=== PATIENT | female | born 1930 | race Caucasian/White ===

== ENCOUNTER 2019-05-31 07:09 | Inpatient (IN) ==
[2019-05-31] MEDS ORDERED: FAMOTIDINE 20MG IV PUSH 20 MG/5 ML SYR IV STA (07:26)
[2019-05-31] MEDS ORDERED: ONDANSETRON INJ 2 MG/ML 2 ML VIAL IV STA (07:26)
[2019-05-31] MEDS ORDERED: SODIUM CHLORIDE 0.9% 500 ML IV SCH (07:30)
--- NOTE | 2019-05-31 07:36 | Emergency Department Note ---
Entered by Christie Doll acting as a scribe for History of Present Illness General Chief complaint: GI Bleed Time Seen by Provider: 05/31/19 07:21 Source: patient Mode of arrival: EMS Limitations: no limitations History of Present Illness Onset (ago): week(s) 1 Location: abdomen Radiation: non-radiation Pain Consistency: + constant Relieved By: + none Exacerbated By: + none Associated symptoms: + weakness and + other (+diarrhea, +hematochezia, +abdominal pain) Treatments prior to arrival: none The patient is an 88 year old female who presents to the ED with complaints of a GI bleed. She was brought to the ED via EMS. She is currently residing at [facility] for back pain rehab after being seen at [facility] last week. She has experienced abdominal pain and diarrhea for the past 1 week. She describes her stool as looking like "black tar". She has been increasingly weak. The patient does take daily BP medication but reports her doctors recently took her off it because her pressure had been dropping. Home Medications Home Medications Medication Instructions Recorded Confirmed Type Lactobacillus acidoph-L.bulgar 1 tab PO TIDM 05/31/19 05/31/19 History [Floranex] amlodipine 10 mg PO QAM 05/31/19 05/31/19 History aspirin 81 mg PO QAM 05/31/19 05/31/19 History atorvastatin 10 mg PO QAM 05/31/19 05/31/19 History calcium carbonate-vitamin D3 1 tab PO BID 05/31/19 05/31/19 History [Calcium 500 + D] cholecalciferol (vitamin D3) 1,000 unit PO QAM 05/31/19 05/31/19 History [Vitamin D3] docusate sodium [Colace] 100 mg PO BID 05/31/19 05/31/19 History gabapentin 100 mg PO TID 05/31/19 05/31/19 History lidocaine [Lidoderm] 1 patch TOPICAL HS 05/31/19 05/31/19 History metoprolol succinate 100 mg PO QAM 05/31/19 05/31/19 History multivitamin 1 tab PO QAM 05/31/19 05/31/19 History ondansetron 4 mg PO Q6H PRN 05/31/19 05/31/19 History pantoprazole 20 mg PO QAM 05/31/19 05/31/19 History prednisone 40 mg PO QAM 05/31/19 05/31/19 History tramadol 50 mg PO Q4H PRN 05/31/19 05/31/19 History Allergies Allergy/AdvReac Type Severity Reaction Status Date / Time erythromycin base Allergy Unknown Unknown Unverified 05/31/19 07:46 Penicillins Allergy Unknown Unknown Unverified 05/31/19 07:46 Past Med/Surg History Medical History HTN (hypertension) GI bleed Back pain Social History Feels Safe at Home: Yes Smoking Status: Never smoker Review of Systems See HPI for pertinent positives & negatives. and A total of 10 systems reviewed and were otherwise negative Physical Exam Vital Signs Vital Signs - 24 hr 05/31/19 07:21 05/31/19 08:29 Temperature 36.9 C Temperature Source Oral Sepsis Recent Fever Within 48 Hours No Sepsis New/Unexplained Change in Mental Status No Sepsis Action Taken by Nursing No Action Required Pulse Rate 120 H Pulse Rate [Apical] 106 H Respiratory Rate 20 16 Blood Pressure 95/77 L Blood Pressure [Right Arm] 95/70 L Blood Pressure Mean 83 Blood Pressure Mean [Right Arm] 78 Pulse Oximetry 99 99 Oxygen Delivery Method Room Air Room Air CONSTITUTIONAL/VITAL SIGNS: Reviewed / noted above. GENERAL: Non-toxic in appearance. INTEGUMENTARY: Warm and dry. Skin is pale. HEAD: Normocephalic. EYES: without scleral icterus or trauma. ENT/OROPHARYNX: clear and moist. LYMPHADENOPATHY/NECK: Is supple without lymphadenopathy or meningismus. RESPIRATORY: Lungs clear and equal. CARDIOVASCULAR: Regular rate and rhythm. GI/ABDOMEN: Soft and nontender. No organomegaly or pulsatile mass. No rebound or guarding. Normal bowel sounds. EXTREMITIES: Warm and well perfused. BACK: No CVA tenderness. NEUROLOGICAL: Intact without focal deficits. PSYCHIATRIC: normal affect. MUSCULOSKELETAL: Normally developed with good muscle tone. Course 0723: The patient was evaluated in room A12 and a complete history and physical were performed. 0840: [facility] The patient will be further evaluated. Consultations Consultation #1: I discussed the patients case with CAL [facility]. The patient will be further evaluated. Time: 08:40 Administered Medications Discontinued Medications Fentanyl Citrate (Fentanyl Citrate) 25 mcg IV NOW ONE Stop: 05/31/19 08:22 Last Admin: 05/31/19 08:28 Dose: 25 mcg Documented by: [id number] Famotidine (Pepcid 20mg Iv Push) 20 mg in 5 mls @ 2.5 mls/min IV NOW STA Stop: 05/31/19 07:27 Last Admin: 05/31/19 08:01 Dose: 2.5 mls/min Documented by: [id number] Sodium Chloride (Nss) 500 mls @ 999 mls/hr IV .Q31M JOSEFINA Stop: 05/31/19 08:00 Last Infusion: 05/31/19 08:38 Dose: 0 mls/hr Documented by: [id number] Admin: 05/31/19 08:01 Dose: 999 mls/hr Documented by: [id number] Ondansetron HCl (Zofran) 4 mg IV ONE STA Stop: 05/31/19 07:27 Last Admin: 05/31/19 08:01 Dose: 4 mg Documented by: [id number] Medical Decision Making Differential Diagnosis Differential diagnosis includes etiologies such as diverticulosis, AVM, coagulopathy, colitis, inflammatory bowel disease, malignancy, Mary-Siddiqui tear, esophagitis, peptic ulcer disease, variceal bleed, gastritis, epistaxis, fissure, hemorrhoids, as well as others were entertained. Medical Records Attestation: I reviewed the patient's medical records. Home Medications Current Medication List: was personally reviewed by me Laboratory Data Attestation: I reviewed the patient's lab results. Result diagrams: 05/31/19 08:00 05/31/19 08:00 Lab Results 05/31/19 05/31/19 05/31/19 Range/Units 08:00 08:00 08:00 WBC 22.77 H (4.8-10.8) K/uL RBC 2.32 L (4.2-5.4) M/uL Hgb 7.5 L (12.0-16.0) g/dL Hct 21.7 L (37-47) % MCV 93.5 (80-100) fL MCH 32.3 (25-34) pg MCHC 34.6 (32-36) g/dL RDW Std Deviation 45.1 (36.4-46.3) fL RDW Coeff of Allison 13.5 (11.5-14.5) % Plt Count 184 (130-400) K/uL MPV 9.3 (7.4-10.4) fL Immature Gran % (Auto) 1.4 % Neut % (Auto) 78.5 % Lymph % (Auto) 13.6 % Houghton % (Auto) 6.5 % Eos % (Auto) 0.0 % Baso % (Auto) 0.0 % Immature Gran # (Auto) 0.33 H (0.00-0.02) K/uL Neut # (Auto) 17.84 H (1.4-6.5) K/uL Lymph # (Auto) 3.09 (1.2-3.4) K/uL Houghton # (Auto) 1.49 H (0.11-0.59) K/uL Eos # (Auto) 0.01 (0-0.5) K/uL Baso # (Auto) 0.01 (0-0.2) K/uL Absolute Nucleated RBC 0.08 H (0-0) K/uL Nucleated RBC % (auto) 0.3 % Sodium 141 (136-145) mmol/L Potassium 4.7 (3.5-5.1) mmol/L Chloride 108 H (98-107) mmol/L Carbon Dioxide 24 (21-32) mmol/L Anion Gap 9.0 (3-11) BUN 58 H (7-18) mg/dl Creatinine 1.09 (0.6-1.2) mg/dl Est Cr Clr Drug Dosing 30.9 ml/min Est GFR ( Amer) 52.9 Est GFR (Non-Af Amer) 45.6 BUN/Creatinine Ratio 52.9 H (10-20) Glucose 150 H (70-99) mg/dl Calcium 8.1 L (8.5-10.1) mg/dl Total Bilirubin 0.3 (0.2-1) mg/dl AST 14 L (15-37) U/L ALT 30 (12-78) U/L Alkaline Phosphatase 39 L (45-117) U/L Total Protein 5.0 L (6.4-8.2) gm/dl Albumin 2.6 L (3.4-5.0) gm/dl Globulin 2.4 L (2.5-4.0) gm/dl Albumin/Globulin Ratio 1.1 (0.9-2) Crossmatch See Detail 05/31/19 Range/Units 08:04 WBC (4.8-10.8) K/uL RBC (4.2-5.4) M/uL Hgb (12.0-16.0) g/dL Hct (37-47) % MCV (80-100) fL MCH (25-34) pg MCHC (32-36) g/dL RDW Std Deviation (36.4-46.3) fL RDW Coeff of Allison (11.5-14.5) % Plt Count (130-400) K/uL MPV (7.4-10.4) fL Immature Gran % (Auto) % Neut % (Auto) % Lymph % (Auto) % Houghton % (Auto) % Eos % (Auto) % Baso % (Auto) % Immature Gran # (Auto) (0.00-0.02) K/uL Neut # (Auto) (1.4-6.5) K/uL Lymph # (Auto) (1.2-3.4) K/uL Houghton # (Auto) (0.11-0.59) K/uL Eos # (Auto) (0-0.5) K/uL Baso # (Auto) (0-0.2) K/uL Absolute Nucleated RBC (0-0) K/uL Nucleated RBC % (auto) % Sodium (136-145) mmol/L Potassium (3.5-5.1) mmol/L Chloride (98-107) mmol/L Carbon Dioxide (21-32) mmol/L Anion Gap (3-11) BUN (7-18) mg/dl Creatinine (0.6-1.2) mg/dl Est Cr Clr Drug Dosing ml/min Est GFR ( Amer) Est GFR (Non-Af Amer) BUN/Creatinine Ratio (10-20) Glucose (70-99) mg/dl Calcium (8.5-10.1) mg/dl Total Bilirubin (0.2-1) mg/dl AST (15-37) U/L ALT (12-78) U/L Alkaline Phosphatase (45-117) U/L Total Protein (6.4-8.2) gm/dl Albumin (3.4-5.0) gm/dl Globulin (2.5-4.0) gm/dl Albumin/Globulin Ratio (0.9-2) Crossmatch See Detail Imaging Data Radiologist's Impression: Radiology results as stated below per my review and the radiologist's interpretation: SINGLE VIEW CHEST CLINICAL HISTORY: GI bleeding. Generalized weakness. FINDINGS: An AP, portable, upright chest radiograph is obtained. No prior studies are available for comparison at the time of dictation. The ca rdiomediastinal silhouette is unremarkable. There is atherosclerotic calcification with uncoiling of the thoracic aorta. The lungs and pleural spaces are clear. No pneumothorax is seen. The skeletal structures are osteopenic. The bony thorax is grossly intact. Calcific tendinopathy is noted in both shoulders. IMPRESSION: 1. The lungs are clear. 2. There is atherosclerotic calcification with uncoiling of the thoracic aorta. No prior studies are available for comparison and to assess stability. Aneurysm of the descending thoracic aorta is not excluded. CT angiogram of the chest is recommended for further assessment. Electronically signed by: Haja Verdin M.D. 05/31/2019 7:57 AM ECG Data Attestation: I personally reviewed and interpreted this ECG as follows: Indication: weakness Rate (beats per minute): 106 Rhythm: sinus tachycardia Findings: no ST elevation and no ectopy Blood Pressure Blood Pressure Findings: Low blood pressure MDM Narrative This is an 88-year-old female who presents to the ED with a chief complaint of generalized weakness, some abdominal cramps, nausea, diarrhea and black tarry stools. The patient states that she has had black tarry stools and diarrhea for about a week. She has become increasingly weak over the last several days. She states that over the last several days her blood pressure has been dropping and they took her off of her blood pressure medication. The patient reports nausea now. Her stools were black and heme positive here. The patient looks pale on exam. She is tachycardic. Her blood pressure is 95/77. She has no abdominal tenderness on my exam. She does not appear to be in any distress. The patient's hemoglobin is 7.5. White blood cell count was 22. BUN is 58. The patient was treated with IV fluids. She was given IV fentanyl, IV Pepcid as Protonix is on back order and IV blood transfusion was ordered. The patient will be seen by the hospitalist, for further evaluation and care. Impression & Plan GI bleed, Anemia, Diarrhea Critical Care Time Critical Care Time: Yes Total Critical Care Time: 31 I have personally spent 31 minutes of critical care time in the direct imtiaz gement of this patient. This includes bedside care, interpretation of diagnostic studies, and testing, discussion with consultants, patient, and family members, and other required patient management activities. This 31 minutes is in excess of all separately billable procedures. Discharge Plan Visit Data Chief Complaint: GI Bleed ED Provider: Americo Davey Discharge Problem: GI bleed, Anemia, Diarrhea Patient Disposition: Being Evaluated by Hospitalist Forms Stand Alone Forms: My [facility] Prescriptions Prescriptions: No Action multivitamin Tablet 1 tab PO QAM RF: 0 atorvastatin 10 mg tablet 10 mg PO QAM RF: 0 metoprolol succinate 50 mg tablet extended release 24 hr 100 mg PO QAM RF: 0 prednisone 20 mg Tablet 40 mg PO QAM RF: 0 aspirin 81 mg Tablet,Delayed Release (Dr/Ec) 81 mg PO QAM RF: 0 tramadol 50 mg tablet 50 mg PO Q4H PRN (Reason: Pain) RF: 0 pantoprazole 20 mg tablet,delayed release (DR/EC) 20 mg PO QAM RF: 0 amlodipine 10 mg tablet 10 mg PO QAM RF: 0 lidocaine [Lidoderm] 5 % Adhesive Patch,Medicated 1 patch TOPICAL HS RF: 0 docusate sodium [Colace] 100 mg Capsule 100 mg PO BID RF: 0 gabapentin 100 mg capsule 100 mg PO TID RF: 0 ondansetron 4 mg tablet,disintegrating 4 mg PO Q6H PRN (Reason: Nausea And Vomiting) RF: 0 calcium carbonate-vitamin D3 [Calcium 500 + D] 500 mg(1,250mg) -200 unit Tablet 1 tab PO BID RF: 0 cholecalciferol (vitamin D3) [Vitamin D3] 1,000 unit (25 mcg) Tablet 1,000 unit PO QAM RF: 0 Lactobacillus acidoph-L.bulgar [Floranex] 1 million cell Tablet 1 tab PO TIDM RF: 0 Referrals Referrals: Yolanda Zurita D.OMarcus [Primary Care Provider] - The scribe's documentation has been prepared under my direction and personally reviewed by me in its entirety. I confirm that the note above accurately ref lects all work, treatment, procedures, and medical decision making performed by me.
--- NOTE | 2019-05-31 07:58 | XRay Report ---
SINGLE VIEW CHEST CLINICAL HISTORY: GI bleeding. Generalized weakness. FINDINGS: An AP, portable, upright chest radiograph is obtained. No prior studies are available for c omparison at the time of dictation. The cardiomediastinal silhouette is unremarkable. There is athe rosclerotic calcification with uncoiling of the thoracic aorta. The lungs and pleural spaces are rob r. No pneumothorax is seen. The skeletal structures are osteopenic. The bony thorax is grossly intact . Calcific tendinopathy is noted in both shoulders. IMPRESSION: 1. The lungs are clear. 2. There is atherosclerotic calcification with uncoiling of the thoracic aorta. No prior studies are available for comparison and to assess stability. Aneurysm of the descending thoracic aorta is not ex cluded. CT angiogram of the chest is recommended for further assessment. Electronically signed by: Haja Verdin M.D. 05/31/2019 7:57 AM
[2019-05-31 08:17] LABS: Basophils # (auto) 0.01 K/uL (0-0.2); Eosinophils # (auto) 0.01 K/uL (0-0.5); Hematocrit (blood only) 21.7 % (37-47); Hemoglobin 7.5 g/dL (12.0-16.0); Immature Granulocytes # (auto) 0.33 K/uL (0.00-0.02); Immature Granulocytes % (auto) 1.4 %; Lymphocytes # (auto) 3.09 K/uL (1.2-3.4); Lymphocytes % (auto) 13.6 %; Mean Corpuscular Hgb Conc 34.6 g/dL (32-36); Mean Corpuscular Volume 93.5 fL (80-100); Mean Platelet Volume 9.3 fL (7.4-10.4); Monocytes # (auto) 1.49 K/uL (0.11-0.59); Monocytes % (auto) 6.5 %; Neutrophils # (auto) 17.84 K/uL (1.4-6.5); Neutrophils % (auto) 78.5 %; Nucleated RBC # (auto) 0.08 K/uL (0-0); Nucleated RBC % (auto) 0.3 %; Platelet Count 184 K/uL (130-400); RDW Coefficient of Variation 13.5 % (11.5-14.5); RDW Standard Deviation 45.1 fL (36.4-46.3); Red Blood Count 2.32 M/uL (4.2-5.4); White Blood Count 22.77 K/uL (4.8-10.8)
[2019-05-31] MEDS ORDERED: fentaNYL citrate 100 MCG/2 ML VIAL IV ONE (08:21)
[2019-05-31] MEDS ORDERED: SODIUM CHLORIDE 0.9% 250 ML IV PRN ×2 (08:22→10:36)
[2019-05-31 08:31] LABS: Albumin Level 2.6 gm/dl (3.4-5.0); BUN Creatinine Ratio 52.9 (10-20); Calcium 8.1 mg/dl (8.5-10.1); Creatinine Clr Calc Pharmacy 30.9 ml/min; Est GFR (African American) 52.9; Est GFR (Non-African American) 45.6; INR 1.1 (0.9-1.1); Partial Thromboplastin Ratio 0.7; Partial Thromboplastin Time < 20.0 Seconds (21.0-31.0); Potassium 4.7 mmol/L (3.5-5.1); Prothrombin Time 11.6 Seconds (9.0-12.0)
[2019-05-31 08:34] LABS: Albumin Globulin Ratio 1.1 (0.9-2); Bilirubin,Total 0.3 mg/dl (0.2-1); Globulin 2.4 gm/dl (2.5-4.0)
[2019-05-31] MEDS ORDERED: PANTOprazole 80 MG in DEXTROSE 5% 100 ML IV SCH (10:00)
[2019-05-31] MEDS ORDERED: ONDANSETRON INJ 2 MG/ML 2 ML VIAL IV PRN (10:36)
[2019-05-31] MEDS: PANTOprazole 40 MG in DEXTROSE 5% 100 ML IV SCH ×4 (10:38→23:08)
--- NOTE | 2019-05-31 11:00 | Gastrointestinal Consultation ---
Date of Consultation May 31, 2019 Assessment & Plan (1) Melena: Black/Red Bms and lower abdomen tenderness may represent an upper GI bleed from ulcer disease, esophagitis, gastritis, duodenitis, or lower GI bleed such as diverticular (diverticulosis on CT a month ago in [facility]) or ischemic colitis (daughter reports that pt had a lower BP a few days ago). Plan EGD today by Dr. Marie. Keep pt NPO and continue PPI drip. Further recommendations to follow EGD. Present on Admission?: Yes Supervising Physician Co-Signing Physician Notes I have seen and examined the patient and discussed the management with CAL Canales. 88 yo fm admitted for concerns for GI bleed - reports of dark stools per patient, Aleelin's history with ? bright red blood. Denies nsaid use, oral iron, recent use of pepto bismol. Mild lower abdominal discomfort reported. Recent CT a/p non contrast in [facility] showing sigmoid diverticulosis with ? thickening, stool burden. Labs reviewed- slight downtrend in hgb, bun normal. Received an IV acid suppressing medication. EGD for further evaluation of reported melena. History of Present Illness Reason for Consultation: GI bleed Requesting Physician: Vicki Lerner NP/Mayelin Dominguez MD Attending Physician: Kurt Dominguez MD History of Present Illness Ms. Vaughn Ureña is an 88 yr old female pt of [facility] office who experienced hip pain last week, was sent from the [facility] ED to [facility] in [place]. While undergoing IP physical therapy at that facility, she began with nausea, had an episode of hypotension a few days ago, then early this morning, began with loose black BMs. In the ED she passed a loose maroon BM and here in the PCU unit a very small red loose/liquid BM. She is on ASA 81mg daily, no other NSAIDs, antiplatelets or anticoagulants. On arrival, Hb 7.5, down from 9.5 yesterday and 14 early this month. BUN here is 52. She is awake, alert, oriented, hemodynamically stable. On exam, she is diffusely tender in the lower abdomen. She is on a PPI drip. One unit of RBCs is infusing. Pt and her daughter tell me that the pt underwent EGD a few yrs ago for dysphagi a and a colonoscopy about 10 yrs ago. Allergies Allergy/AdvReac Type Severity Reaction Status Date / Time erythromycin base Allergy Unknown Unknown Unverified 05/31/19 07:46 Penicillins Allergy Unknown Unknown Unverified 05/31/19 07:46 Home Medications Home Medications Medication Instructions Recorded Confirmed Type Lactobacillus acidoph-L.bulgar 1 tab PO TIDM 05/31/19 05/31/19 History [Floranex] amlodipine 10 mg PO QAM 05/31/19 05/31/19 History aspirin 81 mg PO QAM 05/31/19 05/31/19 History atorvastatin 10 mg PO QAM 05/31/19 05/31/19 History calcium carbonate-vitamin D3 1 tab PO BID 05/31/19 05/31/19 History [Calcium 500 + D] cholecalciferol (vitamin D3) 1,000 unit PO QAM 05/31/19 05/31/19 History [Vitamin D3] docusate sodium [Colace] 100 mg PO BID 05/31/19 05/31/19 History gabapentin 100 mg PO TID 05/31/19 05/31/19 History lidocaine [Lidoderm] 1 patch TOPICAL HS 05/31/19 05/31/19 History metoprolol succinate 100 mg PO QAM 05/31/19 05/31/19 History multivitamin 1 tab PO QAM 05/31/19 05/31/19 History ondansetron 4 mg PO Q6H PRN 05/31/19 05/31/19 History pantoprazole 20 mg PO QAM 05/31/19 05/31/19 History prednisone 40 mg PO QAM 05/31/19 05/31/19 History tramadol 50 mg PO Q4H PRN 05/31/19 05/31/19 History Patient History Medical History Osteoporosis (Chronic) Mitral regurgitation (Chronic) Hyperparathyroidism (Chronic) Hiatal hernia (Chronic) Aortic valve sclerosis (Chronic) Esophageal stricture (Chronic) TIA (transient ischemic attack) (Chronic) CVA (cerebral vascular accident) (Chronic) HLD (hyperlipidemia) (Chronic) Anxiety (Chronic) Diverticulosis (Chronic) IBS (irritable bowel syndrome) (Chronic) GERD (gastroesophageal reflux disease) (Chronic) HTN (hypertension) (Chronic) Surgical History Hx of tonsillectomy (Chronic) History of cataract surgery (Chronic) History of cholecystectomy (Chronic) Family History Mother Heart disease Social History Preferred Language: Romansh Communication Ability: Effective Bond Trader Required: No Beliefs That Will Affect Care: None Current Living Situation: Rehab Other Information That Helps Us Care for You: No Feels Safe at Home: Yes Safety Concerns: Feels Safe At This Time Smoking Status: Former smoker Tobacco Cessation Education Requested by Patient: No Hx Alcohol Use: No Hx Substance Use: No Review of Systems Constitutional: no fever, no sweats and no body aches Eyes: no eye pain Ear, Nose, Mouth, Throat: no ear pain and no dizziness Respiratory: no cough and no dyspnea Cardiovascular: no chest pain, no dyspnea at rest, no palpitations and no syncope Gastrointestinal: + abdominal pain (bilateral lower abdomen pain), + bloating, + nausea and + vomiting (no report of vomiting but had some dry heaving during my interview/exam) Genitourinary: no dysuria, no decreased urination and no hematuria Musculoskeletal: hip pain Integumentary: no rash, no lesions and no change in skin color Neurologic: no falls, no tremor(s) and no syncope Psychiatric: + change in appetite (decreased x a few days); no depression and no hopelessness Endocrine: + fatigue (mild); no polydipsia, no polyphagia and no polyuria Physical Exam Constitutional: WD/WN, vitals as above well developed Eyes: PERRL, conjunctivae normal, anicteric sclerae ENMT: external ear and nose normal, oropharynx normal Neck: trachea midline, no thyromegaly Respiratory: normal respiratory effort, lungs clear to auscultation Cardiovascular: RRR, no murmur, no edema Gastrointestinal (Abdomen): normal bowel sounds, soft, nontender, no hepatosplenomegaly Musculoskeletal: no cyanosis or clubbing, extremities motor strength 5/5 Skin: no rashes, warm and dry Neurologic: PERRL, EOMI, accommodation nl, no face palsy, no dysarthria Psychiatric: A+Ox3, euthymic affect Lymphatic: no cervical or axillary lymphadenopathy Results & Data Vital Signs (Past 12 Hours) Vital Signs Temp Pulse Pulse Resp BP BP Pulse Ox 05/31/19 10:00 37.2 C 110 H 16 123/71 99 05/31/19 09:45 37.2 C 110 H 16 101/78 98 05/31/19 09:36 37.2 C 112 H 16 117/82 99 05/31/19 09:34 96 05/31/19 09:24 37.3 C 109 H 16 119/70 96 05/31/19 09:02 109 H 16 133/72 96 05/31/19 08:29 106 H 16 95/70 L 99 05/31/19 07:21 36.9 C 120 H 20 95/77 L 99 Laboratory Results See HPI for pertinent labs. Medications Administered PPI drip
--- NOTE | 2019-05-31 11:19 | History & Physical Report ---
Date of Service May 31, 2019 Assessment & Plan (1) GI bleed: (2) Anemia: -Admit to telemetry -Patient sent from [facility] for evaluation of black stools and hypotension -Patient has been at [facility] for the past couple of weeks due to left hip pain, low back pain, ambulatory dysfunction; of note, patient has been on 2 courses of prednisone for the hip and back pain -In the ED, Hgb found to be 7.5 (05/26-14.1, 05/30-9.4); mildly tachycardic, borderline low BPs at times -Suspect upper GI bleed however that other differentials considered: Ischemic colitis, diverticular bleed -Received IV famotidine in the ED; will start PPI bolus and drip -Transfused 2 units PRBC, follow serial H&H -GI consult, case discussed with CAL Canales -Likely EGD today, if unrevealing consider CT ABD/pelvis (3) Leukocytosis: -WBC 22K -Recent prednisone use likely contributing and stress of GI bleed -No obvious signs of infection at this time; will check UA, consider CT ABD/pelvis (4) HTN (hypertension): -BP borderline low at times, likely secondary to hypovolemia and anemia -Will hold home doses of amlodipine and metoprolol for now, resume as able (5) TIA (transient ischemic attack): (6) CVA (cerebral vascular accident): -History of, no residual side effects -will hold aspirin due to current GI bleed -Continue statin (7) DVT prophylaxis: -SCDs due to GI bleeding (8) Discharge planning issues: -Patient was sent from [facility]; per notes, patient was to be discharged home from there today -PT/OT evaluations -Case management consult History of Present Illness Chief Complaint: Black stools, hypotension Primary Care Provider: Yolanda Zurita 88-year-old female who was sent to the ED from [facility] for evaluation of black stools and hypotension. Patient was admitted to [facility] on 05/18 for intractable left hip pain, back pain, and ambulatory dysfunction. Patient reports that over the past 1 week she has had very loose stools. Over the past few days, stools have been black in color. Staff at [facility] have also noted decreasing blood pressures. Patient also has been having associated generalized abdominal pain. She reports nausea however has had no vomiting. Patient reports she has felt lightheaded and dizzy however no syncopal events. Of note, patient has been on 2 courses of prednisone for the hip and back pain. No heavy NSAID use. Patient is not on blood thinners, she does take a baby aspirin daily. She denies chest pain shortness of breath. No other recent illnesses, fevers, chills. She denies any urinary symptoms. In the ED, patient's hemoglobin is found to be 7.5 (was 14.1 on 05/26). Patient is mildly tachycardic with borderline low BPs at times. She was typed and crossed for blood. She was also given IVF, IV fentanyl, IV Zofran, IV famotidine. Allergies Allergy/AdvReac Type Severity Reaction Status Date / Time erythromycin base Allergy Unknown Unknown Unverified 05/31/19 07:46 Penicillins Allergy Unknown Unknown Unverified 05/31/19 07:46 Home Medications Home Medications Medication Instructions Recorded Confirmed Type Lactobacillus acidoph-L.bulgar 1 tab PO TIDM 05/31/19 05/31/19 History [Floranex] amlodipine 10 mg PO QAM 05/31/19 05/31/19 History aspirin 81 mg PO QAM 05/31/19 05/31/19 History atorvastatin 10 mg PO QAM 05/31/19 05/31/19 History calcium carbonate-vitamin D3 1 tab PO BID 05/31/19 05/31/19 History [Calcium 500 + D] cholecalciferol (vitamin D3) 1,000 unit PO QAM 05/31/19 05/31/19 History [Vitamin D3] docusate sodium [Colace] 100 mg PO BID 05/31/19 05/31/19 History gabapentin 100 mg PO TID 05/31/19 05/31/19 History lidocaine [Lidoderm] 1 patch TOPICAL HS 05/31/19 05/31/19 History metoprolol succinate 100 mg PO QAM 05/31/19 05/31/19 History multivitamin 1 tab PO QAM 05/31/19 05/31/19 History ondansetron 4 mg PO Q6H PRN 05/31/19 05/31/19 History pantoprazole 20 mg PO QAM 05/31/19 05/31/19 History prednisone 40 mg PO QAM 05/31/19 05/31/19 History tramadol 50 mg PO Q4H PRN 05/31/19 05/31/19 History Past Med/Surg History Medical History Osteoporosis (Chronic) Mitral regurgitation (Chronic) Hyperparathyroidism (Chronic) Hiatal hernia (Chronic) Aortic valve sclerosis (Chronic) Esophageal stricture (Chronic) TIA (transient ischemic attack) (Chronic) CVA (cerebral vascular accident) (Chronic) HLD (hyperlipidemia) (Chronic) Anxiety (Chronic) Diverticulosis (Chronic) IBS (irritable bowel syndrome) (Chronic) GERD (gastroesophageal reflux disease) (Chronic) HTN (hypertension) (Chronic) Surgical History Hx of tonsillectomy (Chronic) History of cataract surgery (Chronic) History of cholecystectomy (Chronic) Family History Mother Heart disease Social History Preferred Language: German Communication Ability: Effective Relief Mate Required: No Beliefs That Will Affect Care: None Current Living Situation: Rehab Other Information That Helps Us Care for You: No Feels Safe at Home: Yes Safety Concerns: Feels Safe At This Time Smoking Status: Former smoker Tobacco Cessation Education Requested by Patient: No Hx Alcohol Use: No Hx Substance Use: No Review of Systems Review of Systems: ROS per HPI, all other systems reviewed and negative Physical Exam Constitutional: WD/WN, vitals as above Eyes: PERRL, conjunctivae normal, anicteric sclerae ENMT: Ears: no external ear abnormality Nose: no external nose abnormality Mouth: + dry oral mucous membranes Respiratory: normal respiratory effort, lungs clear to auscultation Cardiovascular: Rate/Rhythm: regular rate and regular rhythm Vessels: normal peripheral pulses Extremities: no edema Gastrointestinal (Abdomen): Inspection/Auscultation: normal bowel sounds; abdomen not distended Percussion/Palpation: + abdomen tender (Generalized) and abdomen soft; no hepatosplenomegaly Musculoskeletal: no cyanosis or clubbing, extremities motor strength 5/5 Skin: no rashes, warm and dry Neurologic: PERRL, EOMI, accommodation nl, no face palsy, no dysarthria Psychiatric: A+Ox3, euthymic affect Results & Data Vital Signs (Past 12 Hours) Vital Signs Temp Pulse Pulse Resp BP BP Pulse Ox 08/16/19 10:00 37.2 C 110 H 16 123/71 99 05/31/19 09:45 37.2 C 110 H 16 101/78 98 05/31/19 09:36 37.2 C 112 H 16 117/82 99 05/31/19 09:34 96 05/31/19 09:24 37.3 C 109 H 16 119/70 96 05/31/19 09:02 109 H 16 133/72 96 05/31/19 08:29 106 H 16 95/70 L 99 05/31/19 07:21 36.9 C 120 H 20 95/77 L 99 Laboratory Results Short CBC 05/31/19 Range/Units 08:00 WBC 22.77 H (4.8-10.8) K/uL Hgb 7.5 L (12.0-16.0) g/dL Hct 21.7 L (37-47) % Plt Count 184 (130-400) K/uL BMP 05/31/19 08:00 Sodium 141 Potassium 4.7 Chloride 108 H Carbon Dioxide 24 BUN 58 H Creatinine 1.09 Glucose 150 H Calcium 8.1 L Liver Function 05/31/19 Range/Units 08:00 Total Bilirubin 0.3 (0.2-1) mg/dl AST 14 L (15-37) U/L ALT 30 (12-78) U/L Alkaline Phosphatase 39 L (45-117) U/L Albumin 2.6 L (3.4-5.0) gm/dl Diagnostic Findings CXR IMPRESSION: 1. The lungs are clear. 2. There is atherosclerotic calcification with uncoiling of the thoracic aorta. No prior studies are available for comparison and to assess stability. Aneurysm of the descending thoracic aorta is not excluded. CT angiogram of the chest is recommended for further assessment. Code Status & VTE Plan Code Status Patient is a full code as per my discussion with her. VTE Prophylaxis Plan VTE Prophylaxis will be ordered: Yes Supervising Physician Co-Signing Physician Notes Attending addendum: Patient was seen and examined in telemetry unit She was transferred from [facility] with black tarry stools and hypo tension with generalized weakness She complains today of some lower abdominal pain this is been going on for some time Denies any chest pain, palpitation, shortness of breath On examination She looks pale but otherwise no distress Hemodynamically stable now with heart rate of around 110 Chest-minimal bibasilar crackles Heart-S1-S2 regular Abdomen-soft, mildly tender lower quadrants, no guarding no rigidity, bowel sounds present Extremities-negative for any edema [employer] SUPER[employer]OR-she is alert, awake and oriented x3. No focal sensory or motor deficit appreciated Admission labs and imaging studies Has acute blood loss anemia likely secondary to upper GI bleed Question of ischemic bowel and/or diverticular bleed have to be ruled out if EGD has been negative Agree with assessment and plan as outlined above by Vicki Howard
--- NOTE | 2019-05-31 11:26 | Anesthesiology Consultation ---
Date of Service May 31, 2019 Assessment & Plan (1) Encounter for pre-operative examination: History Surgery Operation Date: 05/31/19 08:30 Proposed Procedures p Esophagogastroduodenoscopy Dr. Cynthia Marie M.D. Height/Weight Height: 5 ft 1 in Weight: 63 kg Allergies Allergy/AdvReac Type Severity Reaction Status Date / Time erythromycin base Allergy Unknown Unknown Unverified 05/31/19 07:46 Penicillins Allergy Unknown Unknown Unverified 05/31/19 07:46 Medications Home Medications Medication Instructions Recorded Confirmed Last Taken Lactobacillus acidoph-L.bulgar 1 tab PO TIDM 05/31/19 05/31/19 05/29/19 [Floranex] amlodipine 10 mg PO QAM 05/31/19 05/31/19 05/29/19 aspirin 81 mg PO QAM 05/31/19 05/31/19 05/29/19 atorvastatin 10 mg PO QAM 05/31/19 05/31/19 05/29/19 calcium carbonate-vitamin D3 1 tab PO BID 05/31/19 05/31/19 05/29/19 [Calcium 500 + D] cholecalciferol (vitamin D3) 1,000 unit PO QAM 05/31/19 05/31/19 05/29/19 [Vitamin D3] docusate sodium [Colace] 100 mg PO BID 05/31/19 05/31/19 05/29/19 gabapentin 100 mg PO TID 05/31/19 05/31/19 05/29/19 lidocaine [Lidoderm] 1 patch TOPICAL HS 05/31/19 05/31/19 05/30/19 metoprolol succinate 100 mg PO QAM 05/31/19 05/31/19 05/29/19 multivitamin 1 tab PO QAM 05/31/19 05/31/19 05/29/19 ondansetron 4 mg PO Q6H PRN 05/31/19 05/31/19 05/31/19 03:35 pantoprazole 20 mg PO QAM 05/31/19 05/31/19 05/29/19 prednisone 40 mg PO QAM 05/31/19 05/31/19 05/29/19 tramadol 50 mg PO Q4H PRN 05/31/19 05/31/19 05/29/19 Active Medications Generic Name Dose Route Start Last Admin Trade Name Freq PRN Reason Stop Dose Admin Pantoprazole Sodium 40 mg/ 100 mls @ 20 mls/hr 05/31/19 10:15 05/31/19 10:38 Dextrose IV 06/01/19 10:14 20 mls/hr Q5H JOSEFINA Administration Past Medical History Medical History Osteoporosis (Chronic) Mitral regurgitation (Chronic) Hyperparathyroidism (Chronic) Hiatal hernia (Chronic) Aortic valve sclerosis (Chronic) Esophageal stricture (Chronic) TIA (transient ischemic attack) (Chronic) CVA (cerebral vascular accident) (Chronic) HLD (hyperlipidemia) (Chronic) Anxiety (Chronic) Diverticulosis (Chronic) IBS (irritable bowel syndrome) (Chronic) GERD (gastroesophageal reflux disease) (Chronic) HTN (hypertension) (Chronic) Past Family History Family History Mother Heart disease Past Surgical History Surgical History Hx of tonsillectomy (Chronic) History of cataract surgery (Chronic) History of cholecystectomy (Chronic) Social History Smoking Status: Former smoker Hx Alcohol Use: No Hx Substance Use: No Physical Exam Vital Signs Last Vital Signs Temp 37.2 C 05/31/19 12:34 Pulse 111 H 05/31/19 12:48 Resp 18 05/31/19 12:48 BP 133/81 05/31/19 12:48 Pulse Ox 99 05/31/19 12:48 Testing Laboratory Results 05/31/19 08:00 05/31/19 08:00 PT 11.6 Seconds (9.0-12.0) 05/31/19 08:00 INR 1.1 (0.9-1.1) 05/31/19 08:00 APTT < 20.0 Seconds (21.0-31.0) L 05/31/19 08:00 Blood Type A Positive 05/31/19 08:00 Antibody Screen NEGATIVE 05/31/19 08:00 Electrocardiogram Date: 05/31/19 Sinus tachycardia Left axis deviation Nonspecific T wave abnormality Abnormal ECG No previous ECGs available Chest X-Ray Date: 05/31/19 IMPRESSION: 1. The lungs are clear. 2. There is atherosclerotic calcification with uncoiling of the thoracic aorta. No prior studies are available for comparison and to assess stability. Aneurysm of the descending thoracic aorta is not excluded. CT angiogram of the chest is recommended for further assessment.
[2019-05-31] MEDS ORDERED: LIDOCAINE HCL 2% 2 ML VIAL/AMP(20MG/ML) INFIL ONE (13:06)
[2019-05-31] MEDS ORDERED: PROPOFOL IV EMULSION 10 MG/ML 20 ML VIAL IV ONE (13:06)
[2019-05-31] MEDS: LACTOBACILLUS ACIDOPHILUS (FLORANEX) TAB PO SCH ×2 (13:10→18:33)
--- NOTE | 2019-05-31 13:32 | GI REPORT ---
Patient Name: Vaughn Ureña Procedure Date: 05/31/2019 1:01 PM Date of : 1930 Admit Type: Inpatient Age: 88 Gender: Female Attending MD: Cheyanne Marie M.d. Procedure: Upper GI endoscopy Providers: Cheyanne Marie M.d. Referring MD: Kurt Dominguez Md Indications: Melena Medicines: Propofol per Anesthesia, Lidocaine Complications: No immediate complications. Estimated Blood Loss: Estimated blood loss: none. Procedure: Pre-Anesthesia Assessment: - Patient identification and proposed procedure were verified prior to the procedure by the physician, the nurse and the anesthesiologist. The procedure was verified in the pre-procedure area. - Prior to the procedure, a History and Physical was performed, and patient medications, allergies and sensitivities were reviewed. The patient's tolerance of previous anesthesia was reviewed. - The risks and benefits of the procedure and the sedation options and risks were discussed with the patient. All questions were answered and informed consent was obtained. - ASA Grade Assessment: IV - A patient with severe systemic disease that is a constant threat to life. After obtaining informed consent, the endoscope was passed under direct vision. Throughout the procedure, the patient's blood pressure, pulse, and oxygen saturations were monitored continuously. The Scope was introduced through the mouth, and advanced to the second part of duodenum. The upper GI endoscopy was accomplished without difficulty. The patient tolerated the procedure well. Findings: The examined esophagus appeared normal without esophagitis, a small esophageal diverticulum was visualized mid way through the esophagus. A mild Schatzki ring was found in the lower third of the esophagus that was empirically dilated with passage of the scope with mild mucosal disruptio of the ring and easy passage of the endoscope. A medium-sized hiatal hernia was present without tavia erosions. The examined stomach otherwise appeared normal. The duodenal bulb and second portion of the duodenum were normal. Bile was present. Impression: - Normal esophagus. 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 - Medium-sized hiatal hernia. - Normal stomach. - Normal duodenal bulb and second portion of the duodenum. - No active blood was seen in the esophagus, stomach, or duodenum. Recommendation: - IV PPI for 24 hours. - Transition to oral PPI once daily for 4 weeks. - Return to floor when ready. Cheyanne Marie M.D. Cheyanne Marie M.d. 05/31/2019 1:31:29 PM This report has been signed electronically. Note Initiated On: 05/31/2019 1:01 PM Number of Addenda: 0 I attest to the content of the Intraoperative Record and orders documented therein, exceptions below {[id number]}
[2019-05-31] MEDS ORDERED: PHENYLEPHRINE 100MCG/ML 5ML SYR ONE (13:35)
--- NOTE | 2019-05-31 14:05 | Anesthesiology Progress Note ---
Date of Service May 31, 2019 Anesthesia Post Procedure Vital Signs Vital Signs: Temp Pulse Pulse Resp BP BP BP 05/31/19 14:01 87 18 121/77 05/31/19 13:46 90 18 117/68 05/31/19 13:36 36.4 C L 100 H 18 106/70 05/31/19 12:48 111 H 18 133/81 05/31/19 12:34 37.2 C 105 H 18 124/81 05/31/19 12:10 36.9 C 105 H 16 106/71 05/31/19 11:30 36.8 C 107 H 18 110/72 05/31/19 10:30 36.9 C 103 H 16 122/81 05/31/19 10:00 37.2 C 110 H 16 123/71 05/31/19 09:45 37.2 C 110 H 16 101/78 05/31/19 09:36 37.2 C 112 H 16 117/82 05/31/19 09:34 05/31/19 09:24 37.3 C 109 H 16 119/70 05/31/19 09:02 109 H 16 133/72 05/31/19 08:29 106 H 16 95/70 L 05/31/19 07:21 36.9 C 120 H 20 95/77 L Pulse Ox 05/31/19 14:01 96 05/31/19 13:46 100 05/31/19 13:36 99 05/31/19 12:48 99 05/31/19 12:34 95 05/31/19 12:10 95 05/31/19 11:30 99 05/31/19 10:30 98 05/31/19 10:00 99 05/31/19 09:45 98 05/31/19 09:36 99 05/31/19 09:34 96 05/31/19 09:24 96 05/31/19 09:02 96 05/31/19 08:29 99 05/31/19 07:21 99 Pain Intensity Medial Abdomen: Pain Intensity: 4 Transfer of Care Handoff Completed per policy Notes Mental Status: alert / awake / arousable and participated in evaluation Patient Amnestic to Procedure: Yes Nausea / Vomiting: adequately controlled Pain: adequately controlled Airway Patency, RR, SpO2: stable & adequate BP & HR: stable & adequate Hydration State: stable & adequate Anesthetic Complications: no major complications apparent and Pt Satisfied with anesthetic care
[2019-05-31] MEDS: GABAPENTIN 100 MG CAP PO SCH ×2 (16:19→20:26)
[2019-05-31 17:08] LABS: Cdiff Antigen Positive; Cdiff Toxin A+B Negative Cdiff Toxin (Negative)
[2019-05-31 17:10] LABS: Hematocrit (blood only) 29.9 % (37-47); Hemoglobin 10.1 g/dL (12.0-16.0)
[2019-05-31] MEDS ORDERED: IOVERSOL 100ml IV PRN (17:11)
--- NOTE | 2019-05-31 17:21 | CT Scan Report ---
CT abd pelvis oral and IV con CT DOSE: 293.06 mGy.cm HISTORY: Pain abdominal pain TECHNIQUE: Multiaxial CT images of the abdomen and pelvis were performed following the use of intrave nous and oral contrast. A dose lowering technique was utilized adhering to the principles of ALARA. COMPARISON STUDY: None. FINDINGS: Lung bases are clear. 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 No well-defined dissection. Mild aneurysmal dilatation distal abdominal aorta at 2.5 cm. Liver spleen and pancreas enhance uniformly. Prior cholecystectomy. The kidneys are negative for hydronephrosis. Mild segmental wall thickening of the distal descending colon with findings of wall thickening and di verticuli of the proximal to mid sigmoid. There is trace amount pericolonic infiltrative change. No e vidence for abscess collection or obstruction. The bladder is midline. IMPRESSION: 1. Mild acute diverticulitis superimposed upon chronic diverticular change of the proximal to mid sig moid and to a lesser extent descending colon 2. No evidence for abscess collection or obstruction. 3. 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 It may contain grammatical, syntax or spelling errors. Electronically signed by: Chacho Chaudhari M.D. 05/31/2019 5:20 PM
[2019-05-31] MEDS: SODIUM CHLORIDE 0.9% 1000ML 1,000 ML IV SCH ×2 (17:45→23:54)
[2019-05-31] MEDS: TRAMADOL HCL 50 MG TABLET PO PRN ×2 (17:52→22:01)
[2019-05-31] MEDS: metroNIDAZOLE 500 MG/100 ML BAG IV SCH (18:44)
[2019-05-31] MEDS: CIPROFLOXACIN 400 MG/200 ML BAG IV SCH (18:44)
[2019-05-31] MEDS: CALCIUM 600MG + VIT D 400 IU TAB PO SCH (20:26)
[2019-05-31] MEDS: LIDOCAINE 5% 1 PATCH TD SCH (20:26)
[2019-05-31 21:07] LABS: Hematocrit (blood only) 27.6 % (37-47); Hemoglobin 9.6 g/dL (12.0-16.0)
[2019-05-31] MEDS: ACETAMINOPHEN 325 MG TAB PO PRN (22:02)
[2019-06-01] MEDS: TRAMADOL HCL 50 MG TABLET PO PRN ×5 (02:06→20:02)
[2019-06-01 02:51] LABS: Appearance Urine Clear (Clear); Bacteria Urine Automated Negative (Negative); Bilirubin Urine Negative (Negative); Blood Urine 1+ (Negative); Color Urine Yellow; Epithelial Cell Urine Auto 20-30 /lpf (0-5); Glucose Urine UA Negative (Negative); Ketones Urine Negative (Negative); Leukocyte Esterase Urine Trace (Negative); Nitrite Urine Negative (Negative); Protein Urine Negative (Negative); RBC Urine Automated 0-4 /hpf (0-4); Specific Gravity Urine 1.029 (1.000-1.030); Urobilinogen Urine Negative (Negative)
[2019-06-01 03:01] LABS: Hematocrit (blood only) 27.8 % (37-47); Hemoglobin 9.5 g/dL (12.0-16.0); Mean Corpuscular Hgb Conc 34.2 g/dL (32-36); Mean Corpuscular Volume 91.1 fL (80-100); Mean Platelet Volume 9.2 fL (7.4-10.4); Nucleated RBC # (auto) 0.05 K/uL (0-0); Nucleated RBC % (auto) 0.3 %; Platelet Count 107 K/uL (130-400); RDW Coefficient of Variation 14.7 % (11.5-14.5); Red Blood Count 3.05 M/uL (4.2-5.4); White Blood Count 14.68 K/uL (4.8-10.8)
[2019-06-01 03:33] LABS: BUN Creatinine Ratio 25.7 (10-20); Calcium 7.6 mg/dl (8.5-10.1); Creatinine Clr Calc Pharmacy 38.3 ml/min; Est GFR (African American) 68.5; Est GFR (Non-African American) 59.1; Potassium 3.8 mmol/L (3.5-5.1)
[2019-06-01] MEDS: metroNIDAZOLE 500 MG/100 ML BAG IV SCH ×3 (03:43→17:56)
[2019-06-01] MEDS: PANTOprazole 40 MG in DEXTROSE 5% 100 ML IV SCH (05:17)
[2019-06-01] MEDS: CIPROFLOXACIN 400 MG/200 ML BAG IV SCH ×2 (05:17→17:56)
[2019-06-01] MEDS: SODIUM CHLORIDE 0.9% 1000ML 1,000 ML IV SCH ×3 (06:03→21:09)
[2019-06-01] MEDS: GABAPENTIN 100 MG CAP PO SCH ×3 (08:15→20:04)
[2019-06-01] MEDS: LACTOBACILLUS ACIDOPHILUS (FLORANEX) TAB PO SCH ×3 (08:15→17:56)
[2019-06-01] MEDS: ATORVASTATIN 10 MG TAB PO SCH (08:16)
[2019-06-01] MEDS: CHOLECALCIFEROL 1,000 UNITS TAB PO SCH (08:16)
[2019-06-01] MEDS: CALCIUM 600MG + VIT D 400 IU TAB PO SCH ×2 (08:16→20:03)
[2019-06-01] MEDS: MULTIVITAMIN TAB PO SCH (08:16)
[2019-06-01] MEDS ORDERED: METOPROLOL SUCC 50MG EXT REL TAB PO SCH (09:00)
[2019-06-01] MEDS ORDERED: AMLODIPINE BESYLATE 5 MG TAB PO SCH (09:00)
[2019-06-01 12:10] LABS: RBC Morphology Unremarkable
[2019-06-01] MEDS ORDERED: PANTOprazole 40 MG TAB PO ONE (16:00)
--- NOTE | 2019-06-01 16:06 | Hospitalist Progress Note ---
Date of Service June 01, 2019 Assessment & Plan (1) GI bleed: (2) Anemia: GI Bleed Acute diverticulitis Recent use of 2 courses of Prednisone course for hip and back pain --S/P EGD:Normal esophagus. Mild Schatzki ring in the distal esophagus, empirically dilated with passage of the endoscope.Medium-sized hiatal hernia. Normal stomach. Normal duodenal bulb and second portion of the duodenum. No active blood was seen in the esophagus, stomach, or duodenum. --CT ABD:Mild acute diverticulitis superimposed upon chronic diverticular change of the proximal to mid sigmoid and to a lesser extent descending colon. No evidence for abscess collection or obstruction. 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 --S/P 2 units PRBCs --IV protonix ggt transitioned to PO --Continue Cipro, Flagyl Day #2 --Appreciate GI Input --Monitor CBC (3) Leukocytosis: Management as above (4) HTN (hypertension): Initially BP low Resume Metoprolol today Hold amlodipine for now (5) TIA (transient ischemic attack): (6) CVA (cerebral vascular accident): Hold aspirin for now Continue statin (7) DVT prophylaxis: SCDs Re: GI bleeding (8) Discharge planning issues: PT/OT evaluations Case management consult Subjective Patient is seen and examined at bedside Nausea improved Abdominal pain is improving as well No bleeding issues, bowel movement this morning Start on clear liquid diet Denies any chest pain, shortness of breath, dizziness Offers no other complaints Review of Systems Review of Systems: All systems reviewed & are unremarkable except as noted in HPI & below Physical Exam Physical Exam: Physical Exam: Vitals signs as noted above General Appearance:Moderately built and nourished, no apparent distress Head: normocephalic, Atraumatic Eyes: normal inspection, EOMI Neck: supple, Trachea midline Respiratory/Chest: Normal breath sounds, CTA Cardiovascular: S1, S2, No murmur Abdomen/GI:Soft, mild Epigastric, LLQ tender, Bowel sounds present Extremities/Musculoskelatal:normal inspection, no edema Neurologic/Psych:AAOX3, grossly no focal neurological deficits Skin: normal color, warm Results & Data Vital Signs (Past 12 Hours) Vital Signs Temp Pulse Pulse Resp BP Pulse Ox 06/01/19 15:35 37.6 C H 106 H 18 149/87 H 98 06/01/19 15:32 97 06/01/19 11:27 36.7 C 94 H 18 114/73 96 06/01/19 08:01 36.8 C 96 H 18 130/78 98 Laboratory Results Short CBC 05/31/19 05/31/19 06/01/19 Range/Units 16:44 20:56 02:46 WBC 14.68 H (4.8-10.8) K/uL Hgb 10.1 L 9.6 L 9.5 L (12.0-16.0) g/dL Hct 29.9 L 27.6 L 27.8 L (37-47) % Plt Count 107 L (130-400) K/uL BMP 06/01/19 02:46 Sodium 141 Potassium 3.8 D Chloride 111 H Carbon Dioxide 24 BUN 23 H D Creatinine 0.88 Glucose 96 Calcium 7.6 L Urine 06/01/19 Range/Units 01:20 Urine Color Yellow Urine Appearance Clear (Clear) Urine pH 5.0 (4.5-7.5) Ur Specific [place] 1.029 (1.000-1.030) Urine Protein Negative (Negative) Urine Glucose (UA) Negative (Negative)
[2019-06-01] MEDS ORDERED: METOPROLOL SUCC 50MG EXT REL TAB PO STA (16:15)
[2019-06-01] MEDS: ACETAMINOPHEN 325 MG TAB PO PRN (20:03)
[2019-06-01] MEDS: LIDOCAINE 5% 1 PATCH TD SCH (20:04)
[2019-06-02] MEDS: metroNIDAZOLE 500 MG/100 ML BAG IV SCH ×3 (03:19→18:19)
[2019-06-02] MEDS: CIPROFLOXACIN 400 MG/200 ML BAG IV SCH ×2 (06:08→18:20)
[2019-06-02 06:12] LABS: Hematocrit (blood only) 26.3 % (37-47); Hemoglobin 8.9 g/dL (12.0-16.0); Mean Corpuscular Hgb Conc 33.8 g/dL (32-36); Mean Corpuscular Volume 93.9 fL (80-100); Mean Platelet Volume 9.2 fL (7.4-10.4); Platelet Count 104 K/uL (130-400); RDW Coefficient of Variation 15.3 % (11.5-14.5); RDW Standard Deviation 51.5 fL (36.4-46.3)
[2019-06-02 06:45] LABS: BUN Creatinine Ratio 11.3 (10-20); Creatinine Clr Calc Pharmacy 43.1 ml/min; Est GFR (African American) 80.5; Est GFR (Non-African American) 69.4; Potassium 3.8 mmol/L (3.5-5.1)
[2019-06-02] MEDS: PANTOprazole 40 MG TAB PO SCH (08:53)
[2019-06-02] MEDS: CALCIUM 600MG + VIT D 400 IU TAB PO SCH ×2 (08:53→21:11)
[2019-06-02] MEDS: MULTIVITAMIN TAB PO SCH (08:53)
[2019-06-02] MEDS: ATORVASTATIN 10 MG TAB PO SCH (08:53)
[2019-06-02] MEDS: CHOLECALCIFEROL 1,000 UNITS TAB PO SCH (08:54)
[2019-06-02] MEDS: LACTOBACILLUS ACIDOPHILUS (FLORANEX) TAB PO SCH ×3 (08:54→16:50)
[2019-06-02] MEDS: GABAPENTIN 100 MG CAP PO SCH ×3 (08:54→21:11)
[2019-06-02] MEDS: METOPROLOL SUCC 50MG EXT REL TAB PO SCH (08:55)
[2019-06-02] MEDS: TRAMADOL HCL 50 MG TABLET PO PRN (08:57)
--- NOTE | 2019-06-02 14:46 | Hospitalist Progress Note ---
Date of Service June 02, 2019 Assessment & Plan (1) GI bleed: (2) Anemia: GI Bleed Acute diverticulitis Recent use of 2 courses of Prednisone course for hip and back pain --S/P EGD:Normal esophagus. Mild Schatzki ring in the distal esophagus, empirically dilated with passage of the endoscope.Medium-sized hiatal hernia. Normal stomach. Normal duodenal bulb and second portion of the duodenum. No active blood was seen in the esophagus, stomach, or duodenum. --CT ABD:Mild acute diverticulitis superimposed upon chronic diverticular change of the proximal to mid sigmoid and to a lesser extent descending colon. No evidence for abscess collection or obstruction. 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 --S/P 2 units PRBCs --IV protonix ggt transitioned to PO --Continue Cipro, Flagyl Day #3 --Appreciate GI Input --Monitor CBC --Advance diet as tolerated --Hemoglobin dropped likely dilutional due to IV fluids (3) Leukocytosis: Management as above (4) HTN (hypertension): Initially BP low Continue Metoprolol Resume amlodipine (5) TIA (transient ischemic attack): (6) CVA (cerebral vascular accident): Hold aspirin for now Continue statin (7) DVT prophylaxis: SCDs Re: GI bleeding (8) Discharge planning issues: PT/OT evaluations Case management consult Subjective Patient is seen and examined at bedside Had one loose black-colored BM this morning No nausea or vomiting today Tolerating diet Abdominal pain improved Denies any chest pain, shortness of breath, dizziness No other complaints Review of Systems Review of Systems: All systems reviewed & are unremarkable except as noted in HPI & below Physical Exam Physical Exam: Physical Exam: Vitals signs as noted above General Appearance:Moderately built and nourished, no apparent distress Head: normocephalic, Atraumatic Eyes: normal inspection, EOMI Neck: supple, Trachea midline Respiratory/Chest: Normal breath sounds, CTA Cardiovascular: S1, S2, No murmur Abdomen/GI:Soft, LLQ tender, Bowel sounds present Extremities/Musculoskelatal:normal inspection, no edema Neurologic/Psych:AAOX3, grossly no focal neurological deficits Skin: normal color, warm Results & Data Vital Signs (Past 12 Hours) Vital Signs Temp Pulse Resp BP Pulse Ox Pulse Ox 06/02/19 11:42 36.4 C L 70 20 121/74 97 06/02/19 11:27 98 06/02/19 07:25 36.7 C 74 18 167/78 H 98 06/02/19 03:12 36.7 C 82 16 170/83 H 97 Laboratory Results Short CBC 06/01/19 06/02/19 Range/Units 19:51 05:27 WBC 9.50 (4.8-10.8) K/uL Hgb 9.0 L 8.9 L (12.0-16.0) g/dL Hct 26.0 L 26.3 L (37-47) % Plt Count 104 L (130-400) K/uL BMP 06/02/19 05:27 Sodium 143 Potassium 3.8 Chloride 112 H Carbon Dioxide 28 BUN 9 D Creatinine 0.77 Glucose 96 Calcium 8.0 L
[2019-06-02] MEDS: ACETAMINOPHEN 325 MG TAB PO PRN ×2 (16:49→22:29)
[2019-06-02] MEDS: LIDOCAINE 5% 1 PATCH TD SCH (21:11)
[2019-06-03] MEDS: metroNIDAZOLE 500 MG/100 ML BAG IV SCH ×3 (02:19→18:08)
[2019-06-03] MEDS: CIPROFLOXACIN 400 MG/200 ML BAG IV SCH ×2 (06:03→18:08)
[2019-06-03 06:13] LABS: Hematocrit (blood only) 26.7 % (37-47); Mean Corpuscular Hgb Conc 33.7 g/dL (32-36); Mean Platelet Volume 9.4 fL (7.4-10.4); Platelet Count 117 K/uL (130-400); RDW Coefficient of Variation 15.2 % (11.5-14.5); RDW Standard Deviation 50.1 fL (36.4-46.3); Red Blood Count 2.84 M/uL (4.2-5.4); White Blood Count 8.03 K/uL (4.8-10.8)
[2019-06-03 06:45] LABS: BUN Creatinine Ratio 11.7 (10-20); Calcium 7.8 mg/dl (8.5-10.1); Creatinine Clr Calc Pharmacy 37.8 ml/min; Est GFR (African American) 68.5; Est GFR (Non-African American) 59.1; Potassium 3.3 mmol/L (3.5-5.1)
[2019-06-03] MEDS: CALCIUM 600MG + VIT D 400 IU TAB PO SCH ×2 (08:28→20:28)
[2019-06-03] MEDS: GABAPENTIN 100 MG CAP PO SCH ×3 (08:28→20:28)
[2019-06-03] MEDS: LACTOBACILLUS ACIDOPHILUS (FLORANEX) TAB PO SCH ×3 (08:28→18:08)
[2019-06-03] MEDS: CHOLECALCIFEROL 1,000 UNITS TAB PO SCH (08:29)
[2019-06-03] MEDS: AMLODIPINE BESYLATE 5 MG TAB PO SCH (08:29)
[2019-06-03] MEDS: MULTIVITAMIN TAB PO SCH (08:29)
[2019-06-03] MEDS: PANTOprazole 40 MG TAB PO SCH (08:29)
[2019-06-03] MEDS: METOPROLOL SUCC 50MG EXT REL TAB PO SCH (08:29)
[2019-06-03] MEDS: ATORVASTATIN 10 MG TAB PO SCH (08:29)
[2019-06-03] MEDS ORDERED: POTASSIUM CHLORIDE 10 MEQ TABCR PO STA (08:36)
--- NOTE | 2019-06-03 16:01 | Hospitalist Progress Note ---
Date of Service June 03, 2019 Assessment & Plan (1) GI bleed: (2) Anemia: GI Bleed Acute diverticulitis Recent use of 2 courses of Prednisone course for hip and back pain --S/P EGD:Normal esophagus. Mild Schatzki ring in the distal esophagus, empirically dilated with passage of the endoscope.Medium-sized hiatal hernia. Normal stomach. Normal duodenal bulb and second portion of the duodenum. No active blood was seen in the esophagus, stomach, or duodenum. --CT ABD:Mild acute diverticulitis superimposed upon chronic diverticular change of the proximal to mid sigmoid and to a lesser extent descending colon. No evidence for abscess collection or obstruction. 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 --S/P 2 units PRBCs --IV protonix ggt transitioned to PO --Continue Cipro, Flagyl Day #4 --Appreciate GI Input --Monitor CBC --Tolerating diet --Continue current meds (3) Leukocytosis: Resolved (4) HTN (hypertension): BP Stable Continue Metoprolol, amlodipine (5) TIA (transient ischemic attack): (6) CVA (cerebral vascular accident): Hold aspirin for now Continue statin (7) DVT prophylaxis: SCDs Re: GI bleeding (8) Discharge planning issues: PT/OT evaluations Case management consult Subjective Patient is seen and examined at bedside Reports R UE pain/swelling from IV infiltration Abdominal pain continues to improve Tolerating diet Has brown colored stool today Denies any chest pain, shortness of breath, dizziness, nausea/vomiting Review of Systems Review of Systems: All systems reviewed & are unremarkable except as noted in HPI & below Physical Exam Physical Exam: Physical Exam: Vitals signs as noted above General Appearance:Moderately built and nourished, no apparent distress Head: normocephalic, Atraumatic Eyes: normal inspection, EOMI Neck: supple, Trachea midline Respiratory/Chest: Normal breath sounds, CTA Cardiovascular: S1, S2, No murmur Abdomen/GI:Soft, non tender, Bowel sounds present Extremities/Musculoskelatal:normal inspection, no edema, RUE minimal swelling Neurologic/Psych:AAOX3, grossly no focal neurological deficits Skin: normal color, warm Results & Data Vital Signs (Past 12 Hours) Vital Signs Temp Pulse Resp BP BP Pulse Ox 06/03/19 15:26 37.3 C 80 18 114/72 98 08/19/19 11:36 36.7 C 63 19 134/79 93 06/03/19 08:08 36.6 C 72 19 144/78 H 96 06/03/19 04:00 36.4 C L 65 16 135/80 98 Laboratory Results Short CBC 06/03/19 Range/Units 05:47 WBC 8.03 (4.8-10.8) K/uL Hgb 9.0 L (12.0-16.0) g/dL Hct 26.7 L (37-47) % Plt Count 117 L (130-400) K/uL BMP 06/03/19 05:47 Sodium 144 Potassium 3.3 L Chloride 112 H Carbon Dioxide 29 BUN 10 Creatinine 0.88 Glucose 104 H Calcium 7.8 L
[2019-06-03] MEDS: ACETAMINOPHEN 325 MG TAB PO PRN (20:28)
[2019-06-03] MEDS: LIDOCAINE 5% 1 PATCH TD SCH (20:28)
[2019-06-04] MEDS: ACETAMINOPHEN 325 MG TAB PO PRN (01:00)
[2019-06-04] MEDS: metroNIDAZOLE 500 MG/100 ML BAG IV SCH (02:08)
[2019-06-04] MEDS: CIPROFLOXACIN 400 MG/200 ML BAG IV SCH (05:57)
[2019-06-04 06:11] LABS: Hematocrit (blood only) 27.4 % (37-47)
[2019-06-04 06:47] LABS: BUN Creatinine Ratio 14.9 (10-20); Calcium 8.1 mg/dl (8.5-10.1); Creatinine Clr Calc Pharmacy 37.7 ml/min; Est GFR (African American) 68.5; Est GFR (Non-African American) 59.1; Potassium 3.5 mmol/L (3.5-5.1)
[2019-06-04] MEDS: GABAPENTIN 100 MG CAP PO SCH (08:10)
[2019-06-04] MEDS: CHOLECALCIFEROL 1,000 UNITS TAB PO SCH (08:11)
[2019-06-04] MEDS: CALCIUM 600MG + VIT D 400 IU TAB PO SCH (08:11)
[2019-06-04] MEDS: PANTOprazole 40 MG TAB PO SCH (08:11)
[2019-06-04] MEDS: ATORVASTATIN 10 MG TAB PO SCH (08:11)
[2019-06-04] MEDS: LACTOBACILLUS ACIDOPHILUS (FLORANEX) TAB PO SCH (08:11)
[2019-06-04] MEDS: MULTIVITAMIN TAB PO SCH (08:11)
[2019-06-04] MEDS: METOPROLOL SUCC 50MG EXT REL TAB PO SCH (08:11)
[2019-06-04] MEDS: AMLODIPINE BESYLATE 5 MG TAB PO SCH (08:11)
--- NOTE | 2019-06-04 12:47 | Hospitalist Progress Note ---
Date of Service June 04, 2019 Assessment & Plan (1) GI bleed: (2) Anemia: GI Bleed Acute diverticulitis Recent use of 2 courses of Prednisone course for hip and back pain --S/P EGD:Normal esophagus. Mild Schatzki ring in the distal esophagus, empirically dilated with passage of the endoscope.Medium-sized hiatal hernia. Normal stomach. Normal duodenal bulb and second portion of the duodenum. No active blood was seen in the esophagus, stomach, or duodenum. --CT ABD:Mild acute diverticulitis superimposed upon chronic diverticular change of the proximal to mid sigmoid and to a lesser extent descending colon. No evidence for abscess collection or obstruction. 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 --S/P 2 units PRBCs --IV protonix ggt transitioned to PO --Continue Cipro, Flagyl Day #5 --Appreciate GI Input --Monitor CBC --Tolerated diet (3) Leukocytosis: Resolved (4) HTN (hypertension): BP Stable Continue Metoprolol, amlodipine (5) TIA (transient ischemic attack): (6) CVA (cerebral vascular accident): Resume aspirin upon discharge Continue statin (7) DVT prophylaxis: SCDs Re: GI bleeding (8) Discharge planning issues: PT/OT evaluations Case management consult Plan to discharge home today Subjective Patient is seen and examined at bedside Doing much better today R UE pain/swelling resolved Abdominal pain improved Tolerating diet No melena/bright blood in stools Denies any chest pain, shortness of breath, dizziness, nausea/vomiting Review of Systems Review of Systems: All systems reviewed & are unremarkable except as noted in HPI & below Physical Exam Physical Exam: Physical Exam: Vitals signs as noted above General Appearance:Moderately built and nourished, no apparent distress Head: normocephalic, Atraumatic Eyes: normal inspection, EOMI Neck: supple, Trachea midline Respiratory/Chest: Normal breath sounds, CTA Cardiovascular: S1, S2, No murmur Abdomen/GI:Soft, non tender, Bowel sounds present Extremities/Musculoskelatal:normal inspection, no edema, RUE minimal swelling improved Neurologic/Psych:AAOX3, grossly no focal neurological deficits Skin: normal color, warm Results & Data Vital Signs (Past 12 Hours) Vital Signs Temp Pulse Resp BP Pulse Ox 06/04/19 11:49 36.5 C 65 18 104/65 98 06/04/19 07:47 36.7 C 77 18 135/75 97 06/04/19 03:32 36.7 C 72 18 130/71 96 Laboratory Results Short CBC 06/04/19 Range/Units 05:45 Hgb 9.0 L (12.0-16.0) g/dL Hct 27.4 L (37-47) % BMP 06/04/19 05:45 Sodium 142 Potassium 3.5 Chloride 111 H Carbon Dioxide 26 BUN 13 Creatinine 0.88 Glucose 98 Calcium 8.1 L
--- NOTE | 2019-06-04 13:03 | Discharge Summary ---
Date of Service June 04, 2019 Admission HPI Per Admitting Provider 88-year-old female who was sent to the ED from [facility] for evaluation of black stools and hypotension. Patient was admitted to [facility] on 05/18 for intractable left hip pain, back pain, and ambulatory dysfunction. Patient reports that over the past 1 week she has had very loose stools. Over the past few days, stools have been black in color. Staff at [facility] have also noted decreasing blood pressures. Patient also has been having associated generalized abdominal pain. She reports nausea however has had no vomiting. Patient reports she has felt lightheaded and dizzy however no syncopal events. Of note, patient has been on 2 courses of prednisone for the hip and back pain. No heavy NSAID use. Patient is not on blood thinners, she does take a baby aspirin daily. She denies chest pain shortness of breath. No other recent illnesses, fevers, chills. She denies any urinary symptoms. In the ED, patient's hemoglobin is found to be 7.5 (was 14.1 on 05/26). Patient is mildly tachycardic with borderline low BPs at times. She was typed and crossed for blood. She was also given IVF, IV fentanyl, IV Zofran, IV famotidine. Admission Exam Per Admitting Provider Constitutional: WD/WN, vitals as above Eyes: PERRL, conjunctivae normal, anicteric sclerae ENMT: Ears: no external ear abnormality Nose: no external nose abnormality Mouth: + dry oral mucous membranes Respiratory: normal respiratory effort, lungs clear to auscultation Cardiovascular: Rate/Rhythm: regular rate and regular rhythm Vessels: no rmal peripheral pulses Extremities: no edema Gastrointestinal (Abdomen): Inspection/Auscultation: normal bowel sounds; abdomen not distended Percussion/Palpation: + abdomen tender (Generalized) and abdomen soft; no hepatosplenomegaly Musculoskeletal: no cyanosis or clubbing, extremities motor strength 5/5 Skin: no rashes, warm and dry Neurologic: PERRL, EOMI, accommodation nl, no face palsy, no dysarthria Psychiatric: A+Ox3, euthymic affect Principal Diagnosis Discharge Information Discharge Diagnosis Gastrointestinal bleeding Acute diverticulitis Discharge Goals Decrease discomfort,Improve disease control, Improve function Discharge Activity Limitations Resume your previous activity Discharge Data Allergies Allergy/AdvReac Type Severity Reaction Status Date / Time erythromycin base Allergy Unknown Unknown Unverified 05/31/19 07:46 Penicillins Allergy Unknown Unknown Unverified 05/31/19 07:46 Consultations 05/31/19 08:40 ED Decision to Admit Stat 05/31/19 10:36 Consult Case Management - Discharge Planning Routine Consult Gastroenterology Routine 05/31/19 10:52 Consult Health Information Management Routine Procedures Performed Operation Date: 05/31/19 08:30 Actual Procedures p Esophagogastroduodenoscopy - Cheyanne Marie M.D. CT ABD: 1. 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 No evidence for abscess collection or obstruction. 3. 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 The lungs are clear. 2. There is atherosclerotic calcification with uncoiling of the thoracic aorta. No prior studies are available for comparison and to assess stability. Aneurysm of the descending thoracic aorta is not excluded. CT angiogram of the chest is recommended for further assessment. EGD: Impression: - Normal esophagus. 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 - Medium-sized hiatal hernia. - Normal stomach. - Normal duodenal bulb and second portion of the duodenum. - No active blood was seen in the esophagus, stomach, or duodenum. Recommendation: - IV PPI for 24 hours. - Transition to oral PPI once daily for 4 weeks. - Return to floor when ready. Ordered Studies 05/31/19 13:45 CT abd pelvis oral and IV con Urgent Hospital Course (1) GI bleed: (2) Anemia: GI Bleed Acute diverticulitis Recent use of 2 courses of Prednisone course for hip and back pain --S/P EGD:Normal esophagus. Mild Schatzki ring in the distal esophagus, empirically dilated with passage of the endoscope.Medium-sized hiatal hernia. Normal stomach. Normal duodenal bulb and second portion of the duodenum. No active blood was seen in the esophagus, stomach, or duodenum. --CT ABD:Mild acute diverticulitis superimposed upon chronic diverticular change of the proximal to mid sigmoid and to a lesser extent descending colon. No evidence for abscess collection or obstruction. 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 --S/P 2 units PRBCs --IV protonix ggt transitioned to PO --Continue Cipro, Flagyl Day #5 --Appreciate GI Input --Monitor CBC --Tolerated diet (3) Leukocytosis: Resolved (4) HTN (hypertension): BP Stable Continue Metoprolol, amlodipine (5) TIA (transient ischemic attack): (6) CVA (cerebral vascular accident): Resume aspirin upon discharge Continue statin (7) DVT prophylaxis: SCDs Re: GI bleeding (8) Discharge planning issues: PT/OT evaluations Case management consult Plan to discharge home today Total Time Total Time Spent Total Time Spent (In Minutes): 37 minutes Total Time Includes: Examination of the Patient, Discharge Planning, Medication Reconciliation, Communication With Other Providers and Other Discharge Plan Discharge Items Patient Disposition: Home - Home Health Services Reason For Visit: GI BLEED Discharge Diagnosis: Gastrointestinal bleeding Acute diverticulitis Discharge Goals: Decrease discomfort, Improve disease control and Improve function Activity: Resume your previous activity Exercise/Sports: Gradually increase as tolerated Non-emergency contact: Primary Care Provider Call non-emergency contact if: you have any medication questions, your symptoms worsen, your pain is not controlled, your pain is worsening, your pain is unusual for you, your pain is concerning for you and you have a fever Follow-up/Referrals: Yolanda Zurita D.O. [Primary Care Provider] - Diet: Heart Healthy and Low Fiber Addtl Provider Instructions: Follow-up with your primary care physician Dr. Zurita in 1 week as advised Complete the antibiotic course as prescribed Continue Protonix 40 mg daily for 4 weeks as per recommendations from your gre tutor Dr. Marie Hold taking your aspirin, if recurrence of any bleeding. Consult your physician for further recommendations. Discuss with the physician regarding prednisone use and discontinue if able Seek immediate medical attention if your symptoms reoccur or worsen Prescriptions: New pantoprazole 40 mg Tablet,Delayed Release (Dr/Ec) 40 mg PO QAM 30 Days Qty: 30 RF: 0 metronidazole [Flagyl] 500 mg tablet 500 mg PO Q8H 5 Days Qty: 15 RF: 0 ciprofloxacin HCl [Cipro] 500 mg tablet 500 mg PO BID Qty: 10 RF: 0 Continued multivitamin Tablet 1 tab PO QAM RF: 0 atorvastatin 10 mg tablet 10 mg PO QAM RF: 0 metoprolol succinate 50 mg tablet extended release 24 hr 100 mg PO QAM RF: 0 prednisone 20 mg Tablet 40 mg PO QAM RF: 0 aspirin 81 mg Tablet,Delayed Release (Dr/Ec) 81 mg PO QAM RF: 0 tramadol 50 mg tablet 50 mg PO Q4H PRN (Reason: Pain) RF: 0 amlodipine 10 mg tablet 10 mg PO QAM RF: 0 lidocaine [Lidoderm] 5 % Adhesive Patch,Medicated 1 patch TOPICAL HS RF: 0 docusate sodium [Colace] 100 mg Capsule 100 mg PO BID RF: 0 gabapentin 100 mg capsule 100 mg PO TID RF: 0 ondansetron 4 mg tablet,disintegrating 4 mg PO Q6H PRN (Reason: Nausea And Vomiting) RF: 0 calcium carbonate-vitamin D3 [Calcium 500 + D] 500 mg(1,250mg) -200 unit Tablet 1 tab PO BID RF: 0 cholecalciferol (vitamin D3) [Vitamin D3] 1,000 unit (25 mcg) Tablet 1,000 unit PO QAM RF: 0 Lactobacillus acidoph-L.bulgar [Floranex] 1 million cell Tablet 1 tab PO TIDM RF: 0 Discontinued pantoprazole 20 mg tablet,delayed release (DR/EC) 20 mg PO QAM RF: 0 Stand-Alone Forms: [facility] Discharge Orders: Discharge Order (Routine); Ordered 06/04/19 Ordered By: Kurt Dominguez Admission Data Admit Date/Time: 05/31/19 09:08 Attending Provider: Kurt Dominguez Admit Provider: Kurt Dominguez Primary Care Provider: Yolanda Zurita Other Providers: Kurt Dominguez ; Cheyanne Marie Service: Telemetry Other Interventions: Discharge Summary Assessment (RN) Last Done: 06/04/19 14:07 Pending Studies at Discharge: No DC Date/Time DO NOT enter until pt leaves facility: 06/04/19 15:25
== END 2019-06-04 15:25 | disposition home health service (06) | DRG 378 ==
LOC: ED 07:09 → 2S 09:08

== ENCOUNTER 2019-08-01 13:51 | Inpatient (IN) ==
[2019-08-01] MEDS ORDERED: SODIUM CHLORIDE 0.9% 500 ML IV SCH (14:45)
[2019-08-01 15:17] LABS: Basophils # (auto) 0.01 K/uL (0-0.2); Basophils % (auto) 0.1 %; Eosinophils # (auto) 0.01 K/uL (0-0.5); Eosinophils % (auto) 0.1 %; Hematocrit (blood only) 42.2 % (37-47); Hemoglobin 14.7 g/dL (12.0-16.0); Immature Granulocytes # (auto) 0.03 K/uL (0.00-0.02); Immature Granulocytes % (auto) 0.3 %; Lymphocytes # (auto) 1.37 K/uL (1.2-3.4); Lymphocytes % (auto) 13.2 %; Mean Corpuscular Hemoglobin 31.7 pg (25-34); Mean Corpuscular Hgb Conc 34.8 g/dL (32-36); Mean Corpuscular Volume 91.1 fL (80-100); Mean Platelet Volume 9.9 fL (7.4-10.4); Monocytes # (auto) 0.92 K/uL (0.11-0.59); Monocytes % (auto) 8.9 %; Neutrophils # (auto) 8.03 K/uL (1.4-6.5); Neutrophils % (auto) 77.4 %; Platelet Count 166 K/uL (130-400); RDW Coefficient of Variation 14.1 % (11.5-14.5); RDW Standard Deviation 47.4 fL (36.4-46.3); Red Blood Count 4.63 M/uL (4.2-5.4); White Blood Count 10.37 K/uL (4.8-10.8)
[2019-08-01 15:35] LABS: Alanine Aminotransferase 24 U/L (12-78); Albumin Level 3.7 gm/dl (3.4-5.0); Aspartate Aminotransferase 21 U/L (15-37); Blood Urea Nitrogen 31 mg/dl (7-18); Calcium 10.1 mg/dl (8.5-10.1); Carbon Dioxide 23 mmol/L (21-32); Chloride 104 mmol/L (98-107); Est GFR (African American) 45.4; Est GFR (Non-African American) 39.1; Glucose 97 mg/dl (70-99); Lipase 115 U/L (73-393); Potassium 4.1 mmol/L (3.5-5.1); Sodium 136 mmol/L (136-145)
[2019-08-01 15:37] LABS: Albumin Globulin Ratio 0.9 (0.9-2); Alkaline Phosphatase 84 U/L (45-117); Bilirubin,Total 0.8 mg/dl (0.2-1); Globulin 3.9 gm/dl (2.5-4.0); Total Protein 7.6 gm/dl (6.4-8.2)
--- NOTE | 2019-08-01 16:06 | XRay Report ---
XR abdomen 2V w PA chest CLINICAL HISTORY: trouble eating eval for obstruction/aspiration COMPARISON STUDY: 07/10/2019 FINDINGS: The heart remains normal in size. There is no free intraperitoneal air. There is no focal p ulmonary consolidation. There is stable marked aortic tortuosity. Erect and supine views the abdomen reveal surgical clips within the right upper quadrant consistent with a prior cholecystectomy. There is no abnormal bowel dilatation. There are no transition zones indicate bowel obstruction. There is e vidence of colonic diverticulosis. IMPRESSION: No evidence of bowel obstruction. No evidence of free air. Electronically signed by: Cliff Petit M.D. 08/01/2019 4:04 PM
--- NOTE | 2019-08-01 16:06 | XRay Report ---
XR finger RT min 2V CLINICAL HISTORY: index eval for bony involvment pain COMPARISON: None. DISCUSSION: Severe degenerative change distal interphalangeal joint. Mild degenerative change proxima l interphalangeal joint. Generalized soft tissue edematous change of the mid and distal aspect of the finger. 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 Soft tissue meeta ma. No acute fracture or dislocation. The above report was generated using voice recognition software. It may contain grammatical, syntax or spelling errors. Electronically signed by: Chacho Chaudhari M.D. 08/01/2019 4:04 PM
[2019-08-01] MEDS ORDERED: XYLOCAINE 1%/SOD BICARB 20 ML VIAL INFIL ONE (16:21)
[2019-08-01] MEDS ORDERED: CLINDAMYCIN 600 MG in DEXTROSE 5% 50 ML IV ONE (16:49)
--- NOTE | 2019-08-01 17:02 | History & Physical Report ---
Date of Service August 01, 2019 Assessment & Plan (1) Dysphagia: Pt is 89 y/o F with PMH HTN, TIA, CKD III, dysphagia, dementia presented with c/o Dysphagia. Hx Schatzki's ring. EGD on 05/31/19: mild esophageal diverticulum, distal esophageal Schatzki's ring that was dilated, hiatal hernia with normal stomach and duodenum. Reported improved dysphagia for 1 month after EGD which has returned and progressed from solids to liquids and now with very poor oral intake In ER Pt afebrile, vitals stable. -No signs of current food bolus. No current symptoms of aspiration. CXR without consolidation. -Aspiration precautions -NPO for now, will allow small sip of water for metoprolol. Will hold other medications and monitor -Speech eval -GI consult (2) Dehydration: Poor oral intake past couple of weeks secondary to dysphagia. BUN: 31, Cr: 1.2. BUN/Cr ratio: 25 -IVF -Monitor BMP (3) Diarrhea: Reports took one clindamycin and had numerous episodes of diarrhea after -C diff pending (4) Paronychia: Right index finger pain and edema x 6 days. Reported initial cut to area thought to be secondary to dental floss? Seen by PCP on 07/31/19 and had area I&D and was started on clindamycin. Preliminary wound culture with no growth. Took one clindamycin Afebrile. No leukocytosis. Xray finger +soft tissue swelling, no fracture -Had I&D in ER today -In ER given Clindamycin IV -Doxycycline for now since diarrhea from clindamycin and h/o reported severe PCN allergy -Monitor -CBC in am (5) CKD (chronic kidney disease), stage III: Cr: 1.2. Baseline ~0.8-1.0 -Monitor renal functions -Avoid nephrotoxic agents when possible (6) HTN (hypertension): BP stable -Metoprolol with small sip water -Hold amlodipine currently with dysphagia (7) TIA (transient ischemic attack): -Hold statin currently with dysphagia (8) Dementia: -Monitor for delirium -Hold Remeron for now DVT Prophylaxis -SCDs for now in case of procedure DNR as per discussion with pt and pt's daughter and son Follows with Dr Nieves for routine care Pt was seen and care coordinated with Dr Coppes. See addendum History of Present Illness Chief Complaint: Dysphagia Primary Care Provider: Kemar Nieves MD Pt is 89 y/o F with PMH HTN, TIA, CKD III, dysphagia, dementia presented to ER with c/o Dysphagia. History obtained from patient's children, prior hospital records, outpatient records secondary to patient's dementia. Report patient with history dysphagia in the past and has diagnosis of Schatzki's ring with dilation. Pt with history hospitalization 05/31/19-06/04/19 for GI bleed, diverticulitis and received 2 units PRBCs, was treated with cipro and flagyl. Had EGD on 05/31/19 that showed mild esophageal diverticulum, distal esophageal Schatzki's ring that was dilated, hiatal hernia with normal stomach and duodenum. Reports after that hospitalization patient without any dysphagia for approximately 1 month however has started with symptoms again which have progressively worsened. Couple weeks ago was noted to be having trouble swallowing solid foods. 2 weeks ago scrambled eggs felt like were getting stuck and after several bites patient would start coughing. This is now progressed to liquids and reports past several days patient has only been able to have a few teaspoons of water or broth prior to coughing. Patient with very poor intake for the past 2 weeks. Has had difficulty swallowing her pills and has needed them cut in half. Denies any current sensation of food bolus. Is able to handle secretions. Denies vomiting. Daughter reports that patient was to have repeat EGD 08/14/2019. Since poor oral intake patient has been having increased generalized weakness. Also complains of right 2nd digit pain and edema x 6 days that was reported to start out as a cut on right second finger which was thought secondary to dental floss. Seen by PCP on 07/31/19 and had area I&D and was started on clindamycin. Preliminary wound culture with no growth. Reports took one clindamycin and had diarrhea all night. Did not take any further clindamycin. Reports usual constipation. Patient denies any abdominal pain. Also reports progressive problems with memory since March with significant worsening over the past 1 [address] scan outpatient with signs of vascular dementia and patient was to have MRI brain. Patient was taken off Prozac and Remeron was started for anxiety and difficulty sleeping. Denies noted fever/chills, diaphoresis, HERNANDEZ, dizziness, CP, SOB, extremity edema, rashes, or urinary symptoms. Allergies Allergy/AdvReac Type Severity Reaction Status Date / Time erythromycin base Allergy Unknown Unknown Unverified 08/01/19 14:57 Penicillins Allergy Unknown Unknown Unverified 08/01/19 14:57 ciprofloxacin [From Cipro] Allergy Hallucinati Unverified 08/01/19 14:57 ng topiramate [From Topamax] Allergy Hallucinati Unverified 08/01/19 14:57 ng Home Medications Home Medications Medication Instructions Recorded Confirmed Type amlodipine 10 mg PO QDL 05/31/19 08/01/19 History atorvastatin 10 mg PO QDL 05/31/19 08/01/19 History metoprolol succinate 50 mg PO QDL 05/31/19 08/01/19 History mirtazapine 30 mg PO HS 08/01/19 08/01/19 History Past Med/Surg History Medical History CKD (chronic kidney disease), stage III (Chronic) Anemia (Resolved) GI bleed (Resolved) Melena (Resolved) Osteoporosis (Chronic) Mitral regurgitation (Chronic) Hyperparathyroidism (Chronic) Hiatal hernia (Chronic) Aortic valve sclerosis (Chronic) Esophageal stricture (Chronic) TIA (transient ischemic attack) (Chronic) CVA (cerebral vascular accident) (Chronic) HLD (hyperlipidemia) (Chronic) Anxiety (Chronic) Diverticulosis (Chronic) IBS (irritable bowel syndrome) (Chronic) GERD (gastroesophageal reflux disease) (Chronic) HTN (hypertension) (Chronic) Surgical History Hx of tonsillectomy (Chronic) History of cataract surgery (Chronic) History of cholecystectomy (Chronic) Family History Mother Heart disease Social History Preferred Language: Brazilian Communication Ability: Effective Jr. Systems Administrator Required: No Beliefs That Will Affect Care: None Current Living Situation: Family Feels Safe at Home: Yes Smoking Status: Former smoker Do You Dip or Chew Tobacco: No ; Second Hand Exposure: No ; Tobacco Cessation Education Requested by Patient: No Hx Alcohol Use: No Hx Substance Use: No Review of Systems Review of Systems: Unobtainable due to cognitive status Physical Exam Physical Exam: General: no acute distress, WDWN Head: normocephalic, atraumatic Eyes: PERRL, EOM's intact, conjunctiva non-injected, anicteric ENT: normal inspection external ears, nose, mucous membranes dry Neck: supple, trachea midline Lungs: Pt will not allow auscultation CV: Pt will not allow auscultation, pulse 80-91 while in ER Abd: normal BS, soft, no apparent tenderness to palpation Ext: no cyanosis, no calf tenderness Neuro: Alert, oriented to person. Knows in hospital, unsure name or location. no focal deficits noted, pt irritable intermittently and most often can be redirected Skin: R index finger: +incision site to radial dorsal aspect of finger with surrounding erythema, no current fluctuance or discharge, no red streaking, +tender to palpation. Able to flex and extend finger, brisk capillary refill. Remaining skin warm, dry Results & Data Vital Signs (Past 12 Hours) Vital Signs Temp Pulse Pulse Resp BP BP Pulse Ox 08/01/19 16:24 91 H 20 152/123 H 98 08/01/19 14:01 36.6 C 89 20 130/86 98 Laboratory Results Short CBC 08/01/19 08/01/19 Range/Units 15:07 15:07 WBC 10.37 (4.8-10.8) K/uL Hgb 14.7 (12.0-16.0) g/dL Hct 42.2 (37-47) % Plt Count 166 (130-400) K/uL Creatinine 1.23 H (0.6-1.2) mg/dl BMP 08/01/19 15:07 Sodium 136 Potassium 4.1 Chloride 104 Carbon Dioxide 23 BUN 31 H Creatinine 1.23 H Glucose 97 Calcium 10.1 Liver Function 08/01/19 Range/Units 15:07 Total Bilirubin 0.8 (0.2-1) mg/dl AST 21 (15-37) U/L ALT 24 (12-78) U/L Alkaline Phosphatase 84 (45-117) U/L Albumin 3.7 (3.4-5.0) gm/dl Diagnostic Findings CXR/KUB: IMPRESSION: No evidence of bowel obstruction. No evidence of free air. R FINGER XRAY: IMPRESSION: Severe degenerative change primarily of the distal interphalangeal joint. Soft tissue edema. No acute fracture or dislocation. Supervising Physician Co-Signing Physician Notes HISTORY: Record reviewed. Patient interviewed and examined in her room. Care coordinated with Vandana Granado PA-C. Please refer to her documentation for detailed history. Briefly, 89-year-old female with history of dysphagia secondary to Schatzki's ring, hypertension, dementia, and other problems. Last esophageal dilatation was performed in May. Recurrent/progressive dysphagia; now unable to swallow solids or pills easily. No vomiting or signs of aspiration. Paronychia of finger recently incised and drained in clinic and treated with clindamycin. Now experiencing loose stools without melena or hematochezia. EXAM: General- no distress Patient prefer not to be examined. Hard of hearing with hearing aids. Seems a bit overwhelmed and defers to her daughter to answer many questions for her. Oriented to person, hospital, year, current president, past president. DATA: Hemoglobin 14.7, white count 10,370, platelet count 166,000. Sodium 136, potassium 4.1, chloride 104, CO2 23, BUN 31, creatinine 1.23, glucose 97. Other lab studies as noted. Chest x-ray unremarkable. Abdominal films did not show any evidence of obstruction or free air. X-rays of the right hand demonstrated severe degenerative change in the distal IP joint, soft tissue edema. ASSESSMENT AND PLAN: Recurrent dysphasia, previously attributed to Schatzki's ring. No vomiting or signs of aspiration. Consult GI. Paronychia right finger, status post incision and drainage. Was taking clindamycin as outpatient, but developed diarrhea. Allergic to penicillins. Intolerant of quinolones. Change Rx to IV doxycycline. Developed diarrhea while taking clindamycin for paronychia. Check stools for C. difficile. History of dementia. Essentially oriented x3 at this time. History of delirium. Delirium screening/precautions. Please refer to SIMONE Biggs's documentation for discussion of other issues. (1) Dysphagia Dysphagia type: unspecified Qualified Code(s): R13.10 - Dysphagia, unspecified
--- NOTE | 2019-08-01 18:02 | Emergency Department Note ---
Entered by Elaine Dyer acting as a scribe for History of Present Illness General Chief complaint: Infection Stated complaint: REF BY SOFIA - FINGER INFECTION, DEHYDRATED, Source: family Limitations: other (Dementia) History of Present Illness Provider complaint: Appetite issues Onset (ago): week(s) 2 Location: mouth Pain Consistency: + constant Maximum Pain Intensity: 5 Quality: + other (choking ) The patient is an 89 y/o female who presents to the emergency department for evaluation of constant lack of eating or drinking for the past two weeks. The family states that the patient has pain in her right second digit following a flossing accident last week. They note that the patient wrapped the floss around her finger too tight for a few days in a row and caused a cut that became infected. The patient was taken to the doctor two days ago and they lanced it to drain the infection and prescribed antibiotics. The family reports that the p atient has been having issues eating and drinking due to choking issues the past two weeks and has not been in taking many fluids or foods. They report that the antibiotic she was given has a warning to take with plenty of fluids which the patient cannot and they became concerned. The family also notes that she has been to her PCP for her issues with eating, drinking and weight loss and they note on CT scans of her brain evidence of changes concerning for causing dementia. They also report that the patient has been having memory issues and trouble getting out words and answer questions recently. The HPI and ROS are limited secondary to patients dementia. Home Medications Home Medications Medication Instructions Recorded Confirmed Type amlodipine 10 mg PO QDL 05/31/19 08/01/19 History atorvastatin 10 mg PO QDL 05/31/19 08/01/19 History metoprolol succinate 50 mg PO QDL 05/31/19 08/01/19 History mirtazapine 30 mg PO HS 08/01/19 08/01/19 History Allergies Allergy/AdvReac Type Severity Reaction Status Date / Time erythromycin base Allergy Unknown Unknown Unverified 08/01/19 14:57 Penicillins Allergy Unknown Unknown Unverified 08/01/19 14:57 ciprofloxacin [From Cipro] Allergy Hallucinati Unverified 08/01/19 14:57 ng topiramate [From Topamax] Allergy Hallucinati Unverified 08/01/19 14:57 ng Past Med/Surg History Medical History Anemia (Resolved) GI bleed (Resolved) Melena (Resolved) Osteoporosis (Chronic) Mitral regurgitation (Chronic) Hyperparathyroidism (Chronic) Hiatal hernia (Chronic) Aortic valve sclerosis (Chronic) Esophageal stricture (Chronic) TIA (transient ischemic attack) (Chronic) CVA (cerebral vascular accident) (Chronic) HLD (hyperlipidemia) (Chronic) Anxiety (Chronic) Diverticulosis (Chronic) IBS (irritable bowel syndrome) (Chronic) GERD (gastroesophageal reflux disease) (Chronic) HTN (hypertension) (Chronic) Surgical History Hx of tonsillectomy (Chronic) History of cataract surgery (Chronic) History of cholecystectomy (Chronic) Family History Mother Heart disease Social History Preferred Language: Syriac Communication Ability: Effective Management And Budget Analyst Required: No Beliefs That Will Affect Care: None Current Living Situation: Rehab Feels Safe at Home: Yes Smoking Status: Never smoker Hx Alcohol Use: No Hx Substance Use: No Review of Systems The HPI and ROS are limited secondary to patients dementia. Physical Exam Vital Signs Vital Signs - 24 hr 08/01/19 14:01 08/01/19 16:24 08/01/19 17:23 Temperature 36.6 C Temperature Source Oral Sepsis Recent Fever Within 48 Hours No Sepsis New/Unexplained Change in Mental Status No Sepsis Action Taken by Nursing No Action Required Pulse Rate 89 Pulse Rate [Right Finger] 91 H Pulse Rhythm [Right Finger] Regular Pulse Strength [Right Finger] Normal Respiratory Rate 20 20 Respiratory Effort / Characteristics Non-Labored Spontaneous Non-Labored Respiratory Depth Normal Normal Blood Pressure 130/86 Blood Pressure [Right Arm] 152/123 H 122/79 Blood Pressure Mean 100 Blood Pressure Mean [Right Arm] 132 93 Blood Pressure Position [Right Arm] Lying Pulse Oximetry 98 98 Oxygen Delivery Method Room Air Room Air Constitutional: Vital signs reviewed. Eyes: Pupils are equal round reactive to light. Conjunctiva are noninjected. ENT: Pharynx is clear without erythema or exudate. Mucous membranes are dry. Neck supple without meningeal signs. Respiratory: Clear to auscultation bilaterally. Breath sounds are equal bilaterally. Cardiovascular: Regular rate and rhythm. No rubs or gallops. GI: Soft, nondistended and nontender. Bowel sounds are present. Musculoskeletal: No peripheral edema. No lower extremity tenderness. Paronychia right index finger, with swelling proximally, and diffuse tenderness. Integumentary: No cyanosis. Neurological: The patient is awake and alert. No focal deficits. Psychiatric: Normal affect. Course 1433: Past medical records reviewed. The patient was evaluated in room C12B. A complete history and physical exam was performed. 1619: I spoke with the patient and family and updated them on the results. They note the patient had 4 teaspoons of liquid yesterday. I recommended hospitalization and they agreed. 1615: I received the results from the fluid drained from the patients finger at [facility] and there was no growth from the culture. 1618: I spoke with Eliecer Granado [facility]. They will evaluate for further management. 1621: Elliott Malik will karen the paronychia. Administered Medications Discontinued Medications Sodium Chloride (Nss) 500 mls @ 999 mls/hr IV .Q31M JOSEFINA Stop: 08/01/19 15:15 Last Infusion: 08/01/19 16:01 Dose: 0 mls/hr Documented by: [id number] Admin: 08/01/19 15:25 Dose: 999 mls/hr Documented by: [id number] Clindamycin Phosphate 600 mg/ (Dextrose) 54 mls @ 100 mls/hr IV ONE ONE Stop: 08/01/19 17:21 Last Admin: 08/01/19 17:20 Dose: 100 mls/hr Documented by: [id number] Lidocaine HCl (Buffered Lidocaine 1%) 20 ml INFIL NOW ONE Stop: 08/01/19 16:22 Last Admin: 08/01/19 16:45 Dose: 20 ml Documented by: [id number] Medical Decision Making Differential Diagnosis Differential Diagnosis: dehydration, metabolic derangement, dysphasia, GERD, paronychia Medical Records Attestation: I reviewed the patient's medical records. Seen in June for Abdominal pain, Had a CT of Abdomen, brain and chest without any acute process. Home Medications Current Medication List: was personally reviewed by me Laboratory Data Attestation: I reviewed the patient's lab results. Result diagrams: 08/01/19 15:07 08/01/19 15:07 Lab Results 08/01/19 08/01/19 Range/Units 15:07 15:07 WBC 10.37 (4.8-10.8) K/uL RBC 4.63 (4.2-5.4) M/uL Hgb 14.7 (12.0-16.0) g/dL Hct 42.2 (37-47) % MCV 91.1 (80-100) fL MCH 31.7 (25-34) pg MCHC 34.8 (32-36) g/dL RDW Std Deviation 47.4 H (36.4-46.3) fL RDW Coeff of Allison 14.1 (11.5-14.5) % Plt Count 166 (130-400) K/uL MPV 9.9 (7.4-10.4) fL Immature Gran % (Auto) 0.3 % Neut % (Auto) 77.4 % Lymph % (Auto) 13.2 % Mcduffie % (Auto) 8.9 % Eos % (Auto) 0.1 % Baso % (Auto) 0.1 % Immature Gran # (Auto) 0.03 H (0.00-0.02) K/uL Neut # (Auto) 8.03 H (1.4-6.5) K/uL Lymph # (Auto) 1.37 (1.2-3.4) K/uL Mcduffie # (Auto) 0.92 H (0.11-0.59) K/uL Eos # (Auto) 0.01 (0-0.5) K/uL Baso # (Auto) 0.01 (0-0.2) K/uL Sodium 136 (136-145) mmol/L Potassium 4.1 (3.5-5.1) mmol/L Chloride 104 (98-107) mmol/L Carbon Dioxide 23 (21-32) mmol/L Anion Gap 9.0 (3-11) BUN 31 H (7-18) mg/dl Creatinine 1.23 H (0.6-1.2) mg/dl Est Cr Clr Drug Dosing Not Reportable Est GFR ( Amer) 45.4 Est GFR (Non-Af Amer) 39.1 BUN/Creatinine Ratio 25.0 H (10-20) Glucose 97 (70-99) mg/dl Calcium 10.1 (8.5-10.1) mg/dl Total Bilirubin 0.8 (0.2-1) mg/dl AST 21 (15-37) U/L ALT 24 (12-78) U/L Alkaline Phosphatase 84 (45-117) U/L Total Protein 7.6 (6.4-8.2) gm/dl Albumin 3.7 (3.4-5.0) gm/dl Globulin 3.9 (2.5-4.0) gm/dl Albumin/Globulin Ratio 0.9 (0.9-2) Lipase 115 (73-393) U/L Imaging Data Radiologist's Impression: Radiology results as stated below per my review and the radiologist's interpretation: XR abdomen 2V w PA chest CLINICAL HISTORY: trouble eating eval for obstruction/aspiration COMPARISON STUDY: 07/10/2019 FINDINGS: The heart remains normal in size. There is no free intraperitoneal air. There is no focal pulmonary consolidation. There is stable marked aortic tortuosity. Erect and supine views the abdomen reveal surgical clips within the right upper quadrant consistent with a prior cholecystectomy. There is no abnormal bowel dilatation. There are no transition zones indicate bowel o bstruction. There is evidence of colonic diverticulosis. IMPRESSION: No evidence of bowel obstruction. No evidence of free air. Electronically signed by: Cliff Petit M.D. 08/01/2019 4:04 PM Dictated: 08/01/19 1604 Transcribed: 08/01/19 1604 XR finger RT min 2V CLINICAL HISTORY: index eval for bony involvment pain COMPARISON: None. DISCUSSION: Severe degenerative change distal interphalangeal joint. Mild degenerative change proximal interphalangeal joint. Generalized soft tissue edematous change of the mid and distal aspect of the finger. 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 Soft tissue edema. No acute fracture or dislocation. The above report was generated using voice recognition software. It may contain grammatical, syntax or spelling errors. Electronically signed by: Chacho Chaudhari M.D. 08/01/2019 4:04 PM Blood Pressure Blood Pressure Findings: Elevated blood pressure Blood Pressure Disposition: Referred to patients primary care provider AMBROSE Narrative I did evaluate the patient as noted above. The patient is presenting with a paronychia to her right index finger. She is having trouble swallowing her antibiotics or anything else for that matter. Her daughter states that she has lost 20 pounds over the past 2 to 3 weeks and that yesterday all she had was about 2 tablespoons of broth and 2 tablespoons of applesauce. She appears clinically dehydrated. IV access was established. The patient was placed on a continuous night monitor. I did treat the patient with normal saline IV. I did order and personally reviewed the images of the patient's chest/abdominal/finger x-ray as described above. There is no evidence of aspiration pneumonia or obstruction. There is no evidence of bony involvement. I did order and review the patient's blood work as noted in the electronic medical record. Her white blood cell count is slightly elevated. BUN and creatinine are elevated consistent with dehydration. Her creatinine is 1.2. Previous creatinine was 0.7. I did obtain culture results from the [facility] system. There was no growth from the drainage from her finger. I did treat the patient with clindamycin IV. TL Malik did perform I&D of the paronychia here and was able to drain some pus. I did discuss the test results with the family and recommended hospitalization for further evaluation of her dysphasia. I did discuss case with the hospitalist and showcase maker. Impression & Plan Dehydration, Caloric malnutrition, Dysphagia, Paronychia Discharge Plan Visit Data Chief Complaint: Infection Stated Complaint: REF BY SOFIA - FINGER INFECTION, DEHYDRATED, ED Provider: Raul Acosta Discharge Problem: Dehydration, Caloric malnutrition, Dysphagia, Paronychia Patient Disposition: Being Evaluated by Hospitalist Forms Stand Alone Forms: My [facility] Prescriptions Prescriptions: No Action atorvastatin 10 mg tablet 10 mg PO QDL RF: 0 metoprolol succinate 50 mg tablet extended release 24 hr 50 mg PO QDL RF: 0 amlodipine 10 mg tablet 10 mg PO QDL RF: 0 mirtazapine 30 mg Tablet 30 mg PO HS RF: 0 Referrals Referrals: Kemar Nieves MD [Primary Care Provider] - Discharge Problem: Dysphagia Qualifiers: Dysphagia type: unspecified Qualified Code(s): R13.10 - Dysphagia, unspecified The scribe's documentation has been prepared under my direction and personally reviewed by me in its entirety. I confirm that the note above accurately reflects all work, treatment, procedures, and medical decision making performed by me.
--- NOTE | 2019-08-01 20:28 | Emergency Department Note ---
ED Provider Note Patient was evaluated at the request of my attending physician, Dr. Acosta, for possible drainage of a right second finger infection. Please see Dr. Acosta's dictation for full history of present illness and emergency department course outside of this note. On examination the patient does have an infected appearing area on the distal lateral posterior right second finger. This seems to be an infected paronychia that previous drainage was attempted. I discussed options of care with the patient, and a digital block was performed using 6 mL's of 1% buffered lidocaine. After digital block was successful I did debride a small amount of nonviable tissue along the distal lateral finger. I then irrigated the finger extensively, and was able to identify and flush a small amount of purulent material that seems to be tracking underneath the fi ngernail itself. No additional infectious pockets were identified on probing. The finger was cleansed and dressed, and Dr. Acosta was updated on findings. The patient did tolerate this well without complication. Impression & Plan Dehydration, Caloric malnutrition, Dysphagia, Paronychia Past Med/Surg History Medical History Anemia (Resolved) GI bleed (Resolved) Melena (Resolved) Osteoporosis (Chronic) Mitral regurgitation (Chronic) Hyperparathyroidism (Chronic) Hiatal hernia (Chronic) Aortic valve sclerosis (Chronic) Esophageal stricture (Chronic) TIA (transient ischemic attack) (Chronic) CVA (cerebral vascular accident) (Chronic) HLD (hyperlipidemia) (Chronic) Anxiety (Chronic) Diverticulosis (Chronic) IBS (irritable bowel syndrome) (Chronic) GERD (gastroesophageal reflux disease) (Chronic) HTN (hypertension) (Chronic) Surgical History Hx of tonsillectomy (Chronic) History of cataract surgery (Chronic) History of cholecystectomy (Chronic) Family History Mother Heart disease Social History Preferred Language: Setswana Communication Ability: Effective Financial Retirement Plan Specialist Required: No Beliefs That Will Affect Care: None Current Living Situation: Family Feels Safe at Home: Yes Smoking Status: Former smoker Do You Dip or Chew Tobacco: No ; Second Hand Exposure: No ; Tobacco Cessation Education Requested by Patient: No Hx Alcohol Use: No Hx Substance Use: No Results & Data Vital Signs Vital Signs - 24 hr 08/01/19 14:01 08/01/19 16:24 08/01/19 17:23 Temperature 36.6 C Temperature Source Oral Sepsis Recent Fever Within 48 Hours No Sepsis New/Unexplained Change in Mental Status No Sepsis Action Taken by Nursing No Action Required Pulse Rate 89 Pulse Rate [Right Finger] 91 H Pulse Rhythm [Right Finger] Regular Pulse Strength [Right Finger] Normal Respiratory Rate 20 20 Respiratory Effort / Characteristics Non-Labored Spontaneous Non-Labored Respiratory Depth Normal Normal Blood Pressure 130/86 Blood Pressure [Right Arm] 152/123 H 122/79 Blood Pressure Mean 100 Blood Pressure Mean [Right Arm] 132 93 Blood Pressure Position [Right Arm] Lying Pulse Oximetry 98 98 Oxygen Delivery Method Room Air Room Air Laboratory Data Result diagrams: 08/01/19 15:07 08/01/19 15:07 Lab Results 08/01/19 08/01/19 Range/Units 15:07 15:07 WBC 10.37 (4.8-10.8) K/uL RBC 4.63 (4.2-5.4) M/uL Hgb 14.7 (12.0-16.0) g/dL Hct 42.2 (37-47) % MCV 91.1 (80-100) fL MCH 31.7 (25-34) pg MCHC 34.8 (32-36) g/dL RDW Std Deviation 47.4 H (36.4-46.3) fL RDW Coeff of Allison 14.1 (11.5-14.5) % Plt Count 166 (130-400) K/uL MPV 9.9 (7.4-10.4) fL Immature Gran % (Auto) 0.3 % Neut % (Auto) 77.4 % Lymph % (Auto) 13.2 % [place] % (Auto) 8.9 % Eos % (Auto) 0.1 % Baso % (Auto) 0.1 % Immature Gran # (Auto) 0.03 H (0.00-0.02) K/uL Neut # (Auto) 8.03 H (1.4-6.5) K/uL Lymph # (Auto) 1.37 (1.2-3.4) K/uL [place] # (Auto) 0.92 H (0.11-0.59) K/uL Eos # (Auto) 0.01 (0-0.5) K/uL Baso # (Auto) 0.01 (0-0.2) K/uL Sodium 136 (136-145) mmol/L Potassium 4.1 (3.5-5.1) mmol/L Chloride 104 (98-107) mmol/L Carbon Dioxide 23 (21-32) mmol/L Anion Gap 9.0 (3-11) BUN 31 H (7-18) mg/dl Creatinine 1.23 H (0.6-1.2) mg/dl Est Cr Clr Drug Dosing Not Reportable Est GFR ( Amer) 45.4 Est GFR (Non-Af Amer) 39.1 BUN/Creatinine Ratio 25.0 H (10-20) Glucose 97 (70-99) mg/dl Calcium 10.1 (8.5-10.1) mg/dl Total Bilirubin 0.8 (0.2-1) mg/dl AST 21 (15-37) U/L ALT 24 (12-78) U/L Alkaline Phosphatase 84 (45-117) U/L Total Protein 7.6 (6.4-8.2) gm/dl Albumin 3.7 (3.4-5.0) gm/dl Globulin 3.9 (2.5-4.0) gm/dl Albumin/Globulin Ratio 0.9 (0.9-2) Lipase 115 (73-393) U/L Administered Medications Discontinued Medications Sodium Chloride (Nss) 500 mls @ 999 mls/hr IV .[id number] JOSEFINA Stop: 08/01/19 15:15 Last Infusion: 08/01/19 16:01 Dose: 0 mls/hr Documented by: [id number] Admin: 08/01/19 15:25 Dose: 999 mls/hr Documented by: [id number] Clindamycin Phosphate 600 mg/ (Dextrose) 54 mls @ 100 mls/hr IV ONE ONE Stop: 08/01/19 17:21 Last Infusion: 08/01/19 18:00 Dose: 0 mls/hr Documented by: [id number] Admin: 08/01/19 17:20 Dose: 100 mls/hr Documented by: [id number] Lidocaine HCl (Buffered Lidocaine 1%) 20 ml INFIL NOW ONE Stop: 08/01/19 16:22 Last Admin: 08/01/19 16:45 Dose: 20 ml Documented by: [id number] Discharge Plan Visit Data *Final* Discharge Date/Time: 08/01/19 18:49 Chief Complaint: Infection Stated Complaint: REF BY SOFIA - FINGER INFECTION, DEHYDRATED, ED Provider: Raul Acosta Discharge Problem: Dehydration, Caloric malnutrition, Dysphagia, Paronychia Patient Disposition: Admitted As Inpatient Discharge Instructions Interventions: ED Discharge Assessment Last Done: 08/01/19 18:49 Discharge Problem: Dysphagia Qualifiers: Dysphagia type: unspecified Qualified Code(s): R13.10 - Dysphagia, unspecified
[2019-08-01] MEDS ORDERED: METOPROLOL TARTRATE 25 MG TAB PO ONE (20:52)
[2019-08-01] MEDS: METOPROLOL SUCC 50MG EXT REL TAB PO SCH (21:04)
[2019-08-01] MEDS: DOXYCYCLINE HYCLATE 100 MG in DEXTROSE 5% 100 ML IV SCH (21:12)
[2019-08-01] MEDS: D5W AND NSS 1,000 ML IV SCH (21:13)
[2019-08-01] MEDS: MIRTAZAPINE SOLTAB 15 MG PO SCH (21:50)
[2019-08-02] MEDS ORDERED: METOPROLOL TARTRATE 1 MG/ML VIAL IV SCH
[2019-08-02 06:54] LABS: Hematocrit (blood only) 39.1 % (37-47); Hemoglobin 12.9 g/dL (12.0-16.0); Mean Corpuscular Hemoglobin 30.7 pg (25-34); Mean Corpuscular Volume 93.1 fL (80-100); Mean Platelet Volume 10.3 fL (7.4-10.4); Platelet Count 138 K/uL (130-400); RDW Coefficient of Variation 14.2 % (11.5-14.5); RDW Standard Deviation 48.3 fL (36.4-46.3); White Blood Count 6.56 K/uL (4.8-10.8)
[2019-08-02 07:37] LABS: BUN Creatinine Ratio 24.4 (10-20); Creatinine Clr Calc Pharmacy 35.4 ml/min; Potassium 3.6 mmol/L (3.5-5.1)
[2019-08-02] MEDS: DOXYCYCLINE HYCLATE 100 MG in DEXTROSE 5% 100 ML IV SCH ×2 (09:05→21:48)
--- NOTE | 2019-08-02 10:06 | Gastrointestinal Consultation ---
Date of Consultation August 02, 2019 Assessment & Plan (1) Dysphagia: 89 year old female admitted w/ dysphagia, poor oral intake recent EGD w/ esophageal diverticulum, distal esophageal Schatzki's ring that was dilated, hiatal hernia with normal stomach and duodenum. She is unable to consent herself for endoscopy but I did discuss with her daughter via phone around 9:30 who will be available for consent on her cell phone until she is able to be in the hospital this AM NPO EGD this AM Consider VENEER PATCHER evaluation and video swallow Daughter: Rima at [phone] Present on Admission?: Yes Supervising Physician Co-Signing Physician Notes I have seen and examined the patient and discussed the management with CAL Palumbo. EGD for evaluation of dysphagia. Consent obtained from her daughter, MARCO. History of Present Illness Reason for Consultation: dysphagia Requesting Physician: Matias Attending Physician: Jennifer Salcedo MD History of Present Illness 89 year old female with history of HTN, TIA, CKD III, dysphagia, dementia presented to ED w/ poor oral intake, dysphagia - GI asked to evaluate for dysphagia. Pt was seen and evaluated, chart reviewed. No family at bedside. Pt is a poor historian. She notes that she has sensation of food sticking when she swallows. Unable to specify if this is solids/liquids/pills. She does have some epigastric burning but denies regurgitation, esophageal burning. She has finger pain - was recently to her PCP due to infection and started on antibiotics for this. She is unsure if this is improving or not. She is unsure about her bowels - denies any blakc/bloody stools. No fever, chills, CP, SOB. Of note, recently admitted w/ dysphagia, abd pain, rectal bleedning. Underwent EGD at that time which showed esophageal diverticulum, distal esophageal Schatzki's ring that was dilated, hiatal hernia with normal stomach and duodenum. Allergies Allergy/AdvReac Type Severity Reaction Status Date / Time erythromycin base Allergy Unknown Unknown Unverified 08/01/19 14:57 Penicillins Allergy Unknown Unknown Unverified 08/01/19 14:57 ciprofloxacin [From Cipro] Allergy Hallucinati Unverified 08/01/19 14:57 ng topiramate [From Topamax] Allergy Hallucinati Unverified 08/01/19 14:57 ng Home Medications Home Medications Medication Instructions Recorded Confirmed Type amlodipine 10 mg PO QDL 05/31/19 08/01/19 History atorvastatin 10 mg PO QDL 05/31/19 08/01/19 History metoprolol succinate 50 mg PO QDL 05/31/19 08/01/19 History mirtazapine 30 mg PO HS 08/01/19 08/01/19 History Patient History Medical History CKD (chronic kidney disease), stage III (Chronic) Anemia (Resolved) GI bleed (Resolved) Melena (Resolved) Osteoporosis (Chronic) Mitral regurgitation (Chronic) Hyperparathyroidism (Chronic) Hiatal hernia (Chronic) Aortic valve sclerosis (Chronic) Esophageal stricture (Chronic) TIA (transient ischemic attack) (Chronic) CVA (cerebral vascular accident) (Chronic) HLD (hyperlipidemia) (Chronic) Anxiety (Chronic) Diverticulosis (Chronic) IBS (irritable bowel syndrome) (Chronic) GERD (gastroesophageal reflux disease) (Chronic) HTN (hypertension) (Chronic) Surgical History Hx of tonsillectomy (Chronic) History of cataract surgery (Chronic) History of cholecystectomy (Chronic) Family History Mother Heart disease Social History Preferred Language: Belarusian Communication Ability: Effective Wax Room Supervisor Required: No Beliefs That Will Affect Care: None Current Living Situation: Family Feels Safe at Home: Yes Smoking Status: Former smoker Do You Dip or Chew Tobacco: No ; Second Hand Exposure: No ; Tobacco Cessation Education Requested by Patient: No Hx Alcohol Use: No Hx Substance Use: No Review of Systems Constitutional: + fatigue; no fever and no chills Respiratory: no cough and no dyspnea Cardiovascular: no chest pain Gastrointestinal: + dysphagia; no abdominal pain, no nausea, no coffee ground emesis, no hematemesis, no blood in stools and no melena Physical Exam Constitutional: + ill appearing (chronically ill); no acute distress Respiratory: normal respiratory effort; no respiratory distress Cardiovascular: Rate/Rhythm: regular rate and regular rhythm Gastrointestinal (Abdomen): normal bowel sounds, soft, nontender, no hepatosplenomegaly Results & Data Vital Signs (Past 12 Hours) Vital Signs Temp Pulse Resp BP Pulse Ox 08/02/19 07:23 36.7 C 76 16 129/77 97 08/01/19 23:06 36.8 C 78 16 136/81 96 Laboratory Results 08/02/19 08/02/19 08/01/19 Range/Units 06:29 06:29 15:07 WBC 6.56 10.37 (4.8-10.8) K/uL RBC 4.20 4.63 (4.2-5.4) M/uL Hgb 12.9 14.7 (12.0-16.0) g/dL Hct 39.1 42.2 (37-47) % MCV 93.1 91.1 (80-100) fL MCH 30.7 31.7 (25-34) pg MCHC 33.0 34.8 (32-36) g/dL RDW Std Deviation 48.3 H 47.4 H (36.4-46.3) fL RDW Coeff of Allison 14.2 14.1 (11.5-14.5) % Plt Count 138 166 (130-400) K/uL MPV 10.3 9.9 (7.4-10.4) fL Immature Gran % (Auto) 0.3 % Neut % (Auto) 77.4 % Lymph % (Auto) 13.2 % [place] % (Auto) 8.9 % Eos % (Auto) 0.1 % Baso % (Auto) 0.1 % Immature Gran # (Auto) 0.03 H (0.00-0.02) K/uL Neut # (Auto) 8.03 H (1.4-6.5) K/uL Lymph # (Auto) 1.37 (1.2-3.4) K/uL [place] # (Auto) 0.92 H (0.11-0.59) K/uL Eos # (Auto) 0.01 (0-0.5) K/uL Baso # (Auto) 0.01 (0-0.2) K/uL Sodium 141 (136-145) mmol/L Potassium 3.6 (3.5-5.1) mmol/L Chloride 111 H (98-107) mmol/L Carbon Dioxide 24 (21-32) mmol/L Anion Gap 6.0 (3-11) BUN 20 H (7-18) mg/dl Creatinine 0.83 D (0.6-1.2) mg/dl Est Cr Clr Drug Dosing 35.4 Est GFR ( Amer) 73.0 Est GFR (Non-Af Amer) 63.0 BUN/Creatinine Ratio 24.4 H (10-20) Glucose 103 H (70-99) mg/dl Calcium 9.0 (8.5-10.1) mg/dl Total Bilirubin (0.2-1) mg/dl AST (15-37) U/L ALT (12-78) U/L Alkaline Phosphatase (45-117) U/L Total Protein (6.4-8.2) gm/dl Albumin (3.4-5.0) gm/dl Globulin (2.5-4.0) gm/dl Albumin/Globulin Ratio (0.9-2) Lipase (73-393) U/L 08/01/19 Range/Units 15:07 WBC (4.8-10.8) K/uL RBC (4.2-5.4) M/uL Hgb (12.0-16.0) g/dL Hct (37-47) % MCV (80-100) fL MCH (25-34) pg MCHC (32-36) g/dL RDW Std Deviation (36.4-46.3) fL RDW Coeff of Allison (11.5-14.5) % Plt Count (130-400) K/uL MPV (7.4-10.4) fL Immature Gran % (Auto) % Neut % (Auto) % Lymph % (Auto) % [place] % (Auto) % Eos % (Auto) % Baso % (Auto) % Immature Gran # (Auto) (0.00-0.02) K/uL Neut # (Auto) (1.4-6.5) K/uL Lymph # (Auto) (1.2-3.4) K/uL [place] # (Auto) (0.11-0.59) K/uL Eos # (Auto) (0-0.5) K/uL Baso # (Auto) (0-0.2) K/uL Sodium 136 (136-145) mmol/L Potassium 4.1 (3.5-5.1) mmol/L Chloride 104 (98-107) mmol/L Carbon Dioxide 23 (21-32) mmol/L Anion Gap 9.0 (3-11) BUN 31 H (7-18) mg/dl Creatinine 1.23 H (0.6-1.2) mg/dl Est Cr Clr Drug Dosing Not Reportable Est GFR ( Amer) 45.4 Est GFR (Non-Af Amer) 39.1 BUN/Creatinine Ratio 25.0 H (10-20) Glucose 97 (70-99) mg/dl Calcium 10.1 (8.5-10.1) mg/dl Total Bilirubin 0.8 (0.2-1) mg/dl AST 21 (15-37) U/L ALT 24 (12-78) U/L Alkaline Phosphatase 84 (45-117) U/L Total Protein 7.6 (6.4-8.2) gm/dl Albumin 3.7 (3.4-5.0) gm/dl Globulin 3.9 (2.5-4.0) gm/dl Albumin/Globulin Ratio 0.9 (0.9-2) Lipase 115 (73-393) U/L (1) Dysphagia Dysphagia type: unspecified Qualified Code(s): R13.10 - Dysphagia, unspecified
[2019-08-02] MEDS: METOPROLOL SUCC 50MG EXT REL TAB PO SCH (11:13)
[2019-08-02] MEDS: D5W AND NSS 1,000 ML IV SCH (11:25)
[2019-08-02] MEDS ORDERED: LIDOCAINE HCL 2% 2 ML VIAL/AMP(20MG/ML) INFIL ONE (12:05)
[2019-08-02] MEDS ORDERED: PROPOFOL IV EMULSION 10 MG/ML 20 ML VIAL IV ONE (12:05)
--- NOTE | 2019-08-02 12:18 | Anesthesiology Consultation ---
Date of Service August 02, 2019 Assessment & Plan (1) Encounter for pre-operative examination: Chart Review Chart Review: Acceptable Risk for Surgery and Patient NOT seen in Pre Admission Testing Consults Requested none History Surgery Operation Date: 08/02/19 08:30 Proposed Procedures p Esophagogastroduodenoscopy Dr. Cynthia Marie M.D. Height/Weight Height: 5 ft 1 in Weight: 50.6 kg Allergies Allergy/AdvReac Type Severity Reaction Status Date / Time erythromycin base Allergy Unknown Unknown Unverified 08/01/19 14:57 Penicillins Allergy Unknown Unknown Unverified 08/01/19 14:57 ciprofloxacin [From Cipro] Allergy Hallucinati Unverified 08/01/19 14:57 ng topiramate [From Topamax] Allergy Hallucinati Unverified 08/01/19 14:57 ng Medications Home Medications Medication Instructions Recorded Confirmed Last Taken amlodipine 10 mg PO QDL 05/31/19 08/01/19 07/31/19 atorvastatin 10 mg PO QDL 05/31/19 08/01/19 07/31/19 metoprolol succinate 50 mg PO QDL 05/31/19 08/01/19 07/31/19 mirtazapine 30 mg PO HS 08/01/19 08/01/19 07/31/19 Active Medications Generic Name Dose Route Start Last Admin Trade Name Freq PRN Reason Stop Dose Admin Dextrose/Sodium Chloride 1,000 mls @ 80 mls/hr 08/01/19 19:10 08/02/19 11:31 D5w And Nss IV 08/02/19 20:09 0 mls/hr .[id number] JOSEFINA Infusion Doxycycline Hyclate 100 mg/ 110 mls @ 50 mls/hr 08/01/19 21:00 08/02/19 11:31 Dextrose IV 08/11/19 20:59 Infused BID JOSEFINA Infusion Metoprolol Succinate 50 mg 08/01/19 19:25 08/02/19 11:13 Toprol Xl PO 08/31/19 19:24 50 mg QDL JOSEFINA Administration Mirtazapine 30 mg 08/01/19 21:00 08/01/19 21:50 Remeron Solutab PO 08/31/19 20:59 30 mg HS JOSEFINA Administration NPO Date Last Intake of Fluids: 08/02/19 Time Last Intake of Fluids: 11:30 Last Intake of Fluids Comment: Two sips with med Date Last Intake of Solids: 08/01/19 Past Medical History Medical History CKD (chronic kidney disease), stage III (Chronic) Anemia (Resolved) GI bleed (Resolved) Melena (Resolved) Osteoporosis (Chronic) Mitral regurgitation (Chronic) Hyperparathyroidism (Chronic) Hiatal hernia (Chronic) Aortic valve sclerosis (Chronic) Esophageal stricture (Chronic) TIA (transient ischemic attack) (Chronic) CVA (cerebral vascular accident) (Chronic) HLD (hyperlipidemia) (Chronic) Anxiety (Chronic) Diverticulosis (Chronic) IBS (irritable bowel syndrome) (Chronic) GERD (gastroesophageal reflux disease) (Chronic) HTN (hypertension) (Chronic) Past Family History Family History Mother Heart disease Past Surgical History Surgical History Hx of tonsillectomy (Chronic) History of cataract surgery (Chronic) History of cholecystectomy (Chronic) Social History Smoking Status: Former smoker Do You Dip or Chew Tobacco: No Hx Alcohol Use: No Hx Substance Use: No Physical Exam Vital Signs Last Vital Signs Temp 36.7 C 08/02/19 07:23 Pulse 76 08/02/19 11:11 Resp 16 08/02/19 07:23 BP 136/84 08/02/19 11:11 Pulse Ox 97 08/02/19 07:23 Testing Laboratory Results 08/02/19 06:29 08/02/19 06:29
[2019-08-02] MEDS ORDERED: ePHEDrine sulfate 50 MG/ML AMP IV PRN (12:22)
[2019-08-02] MEDS ORDERED: ATROPINE SULFATE 0.1 MG/ML 10ML SYR IV PRN (12:22)
--- NOTE | 2019-08-02 12:46 | GI REPORT ---
Patient Name: Vaughn Ureña Procedure Date: 08/02/2019 12:27 PM Date of : 1930 Admit Type: Inpatient Age: 89 Gender: Female Attending MD: Cheyanne Marie M.d. Procedure: Upper GI endoscopy Providers: Cheyanne Marie M.d. Referring MD: Kemar Nieves Indications: Dysphagia Medicines: Propofol per Anesthesia, Lidocaine Complications: No immediate complications. Estimated Blood Loss: Estimated blood loss: none. Procedure: Pre-Anesthesia Assessment: - Patient identification and proposed procedure were verified prior to the procedure by the physician, the nurse and the anesthesiologist. The procedure was verified in the pre-procedure area. - Prior to the procedure, a History and Physical was performed, and patient medications, allergies and sensitivities were reviewed. The patient's tolerance of previous anesthesia was reviewed. - The risks and benefits of the procedure and the sedation options and risks were discussed with the patient. All questions were answered and informed consent was obtained. - ASA Grade Assessment: IV - A patient with severe systemic disease that is a constant threat to life. After obtaining informed consent, the endoscope was passed under direct vision. Throughout the procedure, the patient's blood pressure, pulse, and oxygen saturations were monitored continuously. The Scope was introduced through the mouth, and advanced to the second part of duodenum. The upper GI endoscopy was accomplished without difficulty. The patient tolerated the procedure well. Findings: The examined esophagus appeared normal. A non-obstructing Schatzki ring was found in the lower third of the esophagus. A TTS dilator was passed through the scope. Dilation with an 8-9-10 mm x 5.5 cm CRE balloon dilator was performed to 10 mm. Mild mucosal disruption was noted post dilation. The examined stomach appeared normal. The duodenal bulb and second portion of the duodenum were normal. Impression: - Normal esophagus. - Non-obstructing Schatzki ring. Dilated. - Normal stomach. - Normal duodenal bulb and second portion of the duodenum. - No specimens collected. Recommendation: - IV PPI. - Clear liquid diet. - Speech and swallow. - Return to floor when ready. Ramón Villagomez M.d. 08/02/2019 12:45:45 PM This report has been signed electronically. Note Initiated On: 08/02/2019 12:27 PM Number of Addenda: 0 I attest to the content of the Intraoperative Record and orders documented therein, exceptions below {[id number]}
[2019-08-02] MEDS ORDERED: PANTOprazole 40 MG in SYRINGE 0 ML IV SCH (13:00)
--- NOTE | 2019-08-02 14:00 | Anesthesiology Progress Note ---
Date of Service August 02, 2019 Anesthesia Post Procedure Vital Signs Vital Signs: Temp Pulse Pulse Pulse Resp BP BP 08/02/19 13:37 36.5 C 85 18 08/02/19 13:20 82 18 08/02/19 13:05 82 18 08/02/19 12:50 36.8 C 65 18 08/02/19 12:11 36.8 C 84 18 139/86 08/02/19 11:11 76 08/02/19 07:23 36.7 C 76 16 129/77 08/01/19 23:06 36.8 C 78 16 136/81 08/01/19 21:04 83 142/80 H 08/01/19 19:12 36.7 C 78 16 147/82 H 08/01/19 17:23 08/01/19 16:24 91 H 20 08/01/19 14:01 36.6 C 89 20 130/86 BP Pulse Ox 08/02/19 13:37 150/80 H 97 08/02/19 13:20 156/93 H 98 08/02/19 13:05 128/80 98 08/02/19 12:50 93/59 L 96 08/02/19 12:11 97 08/02/19 11:11 136/84 08/02/19 07:23 97 08/01/19 23:06 96 08/01/19 21:04 08/01/19 19:12 97 08/01/19 17:23 122/79 08/01/19 16:24 152/123 H 98 08/01/19 14:01 98 Transfer of Care Handoff Completed per policy Notes Mental Status: alert / awake / arousable Patient Amnestic to Procedure: Yes Nausea / Vomiting: adequately controlled Pain: adequately controlled Airway Patency, RR, SpO2: stable & adequate BP & HR: stable & adequate Hydration State: stable & adequate Anesthetic Complications: no major complications apparent and Pt Satisfied with anesthetic care
--- NOTE | 2019-08-02 16:25 | Hospitalist Progress Note ---
Date of Service August 02, 2019 Assessment & Plan (1) Dysphagia: Pt is 89 y/o F with PMH HTN, TIA, CKD III, dysphagia, dementia presented with c/o Dysphagia. Hx Schatzki's ring. EGD on 05/31/19: mild esophageal diverticulum, distal esophageal Schatzki's ring that was dilated, hiatal hernia with normal stomach and duodenum. Reported improved dysphagia for 1 month after EGD which has returned and progressed from solids to liquids and now with very poor oral intake Status post EGD today: With dilatation of Schatzki's ring Patient started on clear liquid diet, continue PPI as per GI recommendation Speech pathology consulted, appreciate input Bedside evaluation: No overt aspiration noted, patient is apprehensive about eating anything solid Speech recommends continue on clear liquid diet for now Video swallow study on Monday to assess for any evidence of oropharyngeal dysphagia Continue aspiration precaution (2) Dehydration: Resolved after IV fluid hydration Poor oral intake past couple of weeks secondary to dysphagia. BUN: 31, Cr: 1.2. BUN/Cr ratio: 25 Creatinine improved to 0.83/BUN 20 Patient started on a clear liquid diet, IV fluid discontinued, counseling and encouragement were provided for increased oral intake of fluids ACUTE RENAL FAILURE: CKD STAGE III Secondary to poor p.o. intake, dysphagia Presentation creatinine 1.23, improved to 0.83 with IV hydration Continue to encourage p.o. fluid intake Avoid NSAIDs, contrast studies SEVERE PROTEIN CALORIE MALNUTRITION BMI 21/very poor p.o. intake for chronic dysphagia Status post dilatation of Schatzki's ring, speech evaluation appreciated, patient may need adjustment of dietary consistency Nutrition consult requested (3) Diarrhea: C. difficile colitis: Reports took one clindamycin and had numerous episodes of diarrhea after -Stool C. difficile positive for toxin B gene Contact isolation, started on p.o. vancomycin Probiotic (4) Paronychia: Right index finger pain and edema x 6 days. Reported initial cut to area thought to be secondary to dental floss? Seen by PCP on 07/31/19 and had area I&D and was started on clindamycin. Preliminary wound culture with no growth. Took one clindamycin Afebrile. No leukocytosis. Xray finger +soft tissue swelling, no fracture -Had I&D in ER today -In ER given Clindamycin IV -On doxycycline -Started on p.o. vancomycin for C. difficile colitis (5) CKD (chronic kidney disease), stage III: Resolved, creatinine improved to baseline Cr: 1.2. Baseline ~0.8-1.0 (6) HTN (hypertension): BP stable (7) TIA (transient ischemic attack): (8) Dementia: -Monitor for delirium - DVT Prophylaxis -Order for subcu heparin DNR as per discussion with pt and pt's daughter and son Follows with Dr Nieves for routine care Disposition: She lives with daughter Ordered for PT OT evaluation, social service consult for discharge plan Plan of care updated to patient's daughter at bedside, Subjective Status post EGD today: Schatzki's ring noted on the lower third of the esophagus, status post dilatation Patient seen in room 367/2 postprocedure Awake and alert, baseline dementia, minimally communicative Patient's daughter and son-in-law present at bedside, able to help with communication No report of cough, denies of any pain or discomfort on throat, Patient started on clears Appreciate input from speech therapy Physical Exam Constitutional: + ill appearing (chronically ill); no acute distress ENMT: Mouth: no TMJ abnormality Mallampati Class: II Neck: normal visual inspection Respiratory: normal respiratory effort; no respiratory distress Auscultation: lungs clear to auscultation bilaterally Cardiovascular: Rate/Rhythm: regular rate and regular rhythm Gastrointestinal (Abdomen): normal bowel sounds, soft, nontender, no hepatosplenomegaly Neurologic: moves all extremities Psychiatric: Orientation: alert and oriented to person Baseline dementia Results & Data Vital Signs (Past 12 Hours) Vital Signs Temp Pulse Resp BP BP Pulse Ox 08/02/19 15:27 37.1 C 89 16 124/74 96 08/02/19 13:37 36.5 C 85 18 150/80 H 97 08/02/19 13:20 82 18 156/93 H 98 08/02/19 13:05 82 18 128/80 98 08/02/19 12:50 36.8 C 65 18 93/59 L 96 08/02/19 12:11 36.8 C 84 18 139/86 97 08/02/19 11:11 76 136/84 08/02/19 07:23 36.7 C 76 16 129/77 97 (1) Dysphagia Dysphagia type: unspecified Qualified Code(s): R13.10 - Dysphagia, unsp ecified
[2019-08-02] MEDS: VANCOMYCIN HCL 125 MG/2.5ML SOLN PO SCH (19:13)
[2019-08-02] MEDS: RASPBERRY SYRUP 5 ML UDP PO SCH (19:13)
[2019-08-02] MEDS: MIRTAZAPINE SOLTAB 15 MG PO SCH (21:48)
[2019-08-03] MEDS: VANCOMYCIN HCL 125 MG/2.5ML SOLN PO SCH ×3 (00:41→12:31)
[2019-08-03] MEDS: RASPBERRY SYRUP 5 ML UDP PO SCH ×3 (00:41→12:30)
[2019-08-03] MEDS: DOXYCYCLINE HYCLATE 100 MG in DEXTROSE 5% 100 ML IV SCH (09:54)
[2019-08-03] MEDS: METOPROLOL SUCC 50MG EXT REL TAB PO SCH (12:30)
[2019-08-03] MEDS ORDERED: TRAZODONE HCL 50 MG TAB PO PRN (12:36)
[2019-08-03] MEDS: AMLODIPINE BESYLATE 5 MG TAB PO SCH (14:24)
[2019-08-03] MEDS: LACTOBACILLUS ACIDOPHILUS 1 GM PACK PO SCH ×2 (14:24→17:49)
--- NOTE | 2019-08-03 15:54 | Hospitalist Progress Note ---
Date of Service August 03, 2019 Assessment & Plan (1) Dysphagia: Pt is 89 y/o F with PMH HTN, TIA, CKD III, dysphagia, dementia presented with c/o Dysphagia. Hx Schatzki's ring. EGD on 05/31/19: mild esophageal diverticulum, distal esophageal Schatzki's ring that was dilated, hiatal hernia with normal stomach and duodenum. Reported improved dysphagia for 1 month after EGD which has returned and progressed from solids to liquids and now with very poor oral intake Status post EGD 08/02/2019 With dilatation of Schatzki's ring Patient started on clear liquid diet, continue PPI as per GI recommendation Speech pathology consulted, appreciate input Bedside evaluation: No overt aspiration noted, patient is apprehensive about eating anything solid Speech recommends continue on clear liquid diet for now Video swallow study on Monday08/05/2019 to assess for any evidence of oropharyngeal dysphagia Continue aspiration precaution Patient has been tolerating clear liquid diet well, no evidence of aspiration noted Diarrhea/positive 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 difficile assay-negative for C. difficile toxin/C. difficile gene- likely a carrier No sign of C. difficile infection Does not need any treatment order to DC p.o. vancomycin Not contagious: Contact isolation discontinued Ordered for probiotics, patient refused (2) Dehydration: Resolved after IV fluid hydration Poor oral intake past couple of weeks secondary to dysphagia. BUN: 31, Cr: 1.2. BUN/Cr ratio: 25 Creatinine improved to 0.83/BUN 20 Patient started on a clear liquid diet, counseling and encouragement were provided for increased oral intake of fluids ACUTE RENAL FAILURE: CKD STAGE III Secondary to poor p.o. intake, dysphagia Presentation creatinine 1.23, improved to 0.83 with IV hydration Continue to encourage p.o. fluid intake Avoid NSAIDs, contrast studies SEVERE PROTEIN CALORIE MALNUTRITION BMI 21/very poor p.o. intake for chronic dysphagia Status post dilatation of Schatzki's ring, speech evaluation appreciated, patient may need adjustment of dietary consistency Nutrition consult requested (3) Diarrhea: Resolved, no further episode of loose stool C. difficile PCR/DNA positive, toxin negativelikely a carrier state Evidence of infection does not require any treatment Does not require contact isolation (4) Paronychia: Right index finger pain and edema x 6 days. Reported initial cut to area thought to be secondary to dental floss? Seen by PCP on 07/31/19 and had area I&D and was started on clindamycin. Preliminary wound culture with no growth. Took one clindamycin Afebrile. No leukocytosis. Xray finger +soft tissue swelling, no fracture -Had I&D in ER -On doxycycline changed to p.o. complete total 7 days of treatment -S (5) CKD (chronic kidney disease), stage III: Resolved, creatinine improved to baseline Cr: 1.2. Baseline ~0.8-1.0 (6) HTN (hypertension): BP stable (7) TIA (transient ischemic attack): No focal neurological deficit, baseline advanced dementia (8) Dementia: -Monitor for delirium - DVT Prophylaxis -Order for subcu heparin DNR as per discussion with pt and pt's daughter and son Follows with Dr Nieves for routine care Disposition: She lives with daughter Ordered for PT OT evaluation, social service consult for discharge plan Plan of care updated to patient's daughter at bedside, Subjective Awake and alert, denies of any discomfort Patient's daughter ( Angelina #[phone]) present at bedside-states patient has been anxious No complaint of nausea vomiting or abdominal pain Tolerating clear diet well No episode of diarrhea No fever or chills Physical Exam Constitutional: + ill appearing (chronically ill), + thin and + cachectic; no acute distress Eyes: + anicteric sclerae ENMT: external ear and nose normal, oropharynx normal Mallampati Class: II Neck: normal visual inspection Respiratory: normal respiratory effort; no respiratory distress Auscultation: lungs clear to auscultation bilaterally Cardiovascular: Rate/Rhythm: regular rate and regular rhythm Gastrointestinal (Abdomen): normal bowel sounds, soft, nontender, no hepatosplenomegaly Musculoskeletal: Head/Neck/Chest: normocephalic and head atraumatic Skin: no rashes, warm and dry Neurologic: moves all extremities Psychiatric: Orientation: alert and oriented to person (Baseline dementia) Eye Contact: + fair eye contact Affect: + anxious affect Results & Data Vital Signs (Past 12 Hours) Vital Signs Temp Pulse Resp BP Pulse Ox 08/03/19 15:24 37.1 C 96 H 16 154/89 H 96 08/03/19 12:30 100 H 134/95 08/03/19 07:18 36.9 C 104 H 16 149/96 H 96 (1) Dysphagia Dysphagia type: unspecified Qualified Code(s): R13.10 - Dysphagia, unspecified
[2019-08-03] MEDS: MIRTAZAPINE TAB 15 MG TAB PO SCH (20:25)
[2019-08-03] MEDS: ATORVASTATIN 10 MG TAB PO SCH (20:28)
[2019-08-03] MEDS: DOXYCYCLINE HYCLATE 100 MG CAP PO SCH (20:29)
[2019-08-04] MEDS: DOXYCYCLINE HYCLATE 100 MG CAP PO SCH ×2 (09:55→20:04)
[2019-08-04] MEDS: AMLODIPINE BESYLATE 5 MG TAB PO SCH (09:55)
[2019-08-04] MEDS: METOPROLOL SUCC 50MG EXT REL TAB PO SCH ×2 (11:21→11:30)
[2019-08-04] MEDS ORDERED: AMLODIPINE BESYLATE 5 MG TAB PO SCH (11:30)
[2019-08-04] MEDS ORDERED: ATORVASTATIN 10 MG TAB PO SCH (11:30)
--- NOTE | 2019-08-04 16:19 | Hospitalist Progress Note ---
Date of Service August 04, 2019 Assessment & Plan (1) Dysphagia: Pt is 89 y/o F with PMH HTN, TIA, CKD III, dysphagia, dementia presented with c/o Dysphagia. Hx Schatzki's ring. EGD on 05/31/19: mild esophageal diverticulum, distal esophageal Schatzki's ring that was dilated, hiatal hernia with normal stomach and duodenum. Reported improved dysphagia for 1 month after EGD which has returned and progressed from solids to liquids and now with very poor oral intake Status post EGD 08/02/2019 With dilatation of Schatzki's ring Patient started on clear liquid diet, continue PPI as per GI recommendation Speech pathology consulted, appreciate input Bedside evaluation: No overt aspiration noted, patient is apprehensive about eating anything solid Speech recommends continue on clear liquid diet for now Video swallow study on Monday08/05/2019 to assess for any evidence of oropharyngeal dysphagia Continue aspiration precaution Patient has been tolerating clear liquid diet well, no evidence of aspiration noted, Diarrhea/positive 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 difficile assay-negative for C. difficile toxin/C. difficile gene- likely a carrier No sign of C. difficile infection Does not need any treatment order to DC p.o. vancomycin Ordered for probiotics, patient refused (2) Dehydration: Resolved after IV fluid hydration Poor oral intake past couple of weeks secondary to dysphagia. BUN: 31, Cr: 1.2. BUN/Cr ratio: 25 Creatinine improved to 0.83/BUN 20 Patient started on a clear liquid diet, counseling and encouragement were provided for increased oral intake of fluids ACUTE RENAL FAILURE: CKD STAGE III Secondary to poor p.o. intake, dysphagia Presentation creatinine 1.23, improved to 0.83 with IV hydration Continue to encourage p.o. fluid intake Avoid NSAIDs, contrast studies SEVERE PROTEIN CALORIE MALNUTRITION BMI 21/very poor p.o. intake for chronic dysphagia Status post dilatation of Schatzki's ring, speech evaluation appreciated, patient may need adjustment of dietary consistency Nutrition consult requested (3) Diarrhea: Resolved, no further episode of loose stool C. difficile PCR/DNA positive, toxin negativelikely a carrier state Evidence of infection does not require any treatment Does not require contact isolation (4) Paronychia: Right index finger pain and edema x 6 days. Reported initial cut to area thought to be secondary to dental floss? Seen by PCP on 07/31/19 and had area I&D and was started on clindamycin. Preliminary wound culture with no growth. Took one clindamycin Afebrile. No leukocytosis. Xray finger +soft tissue swelling, no fracture -Had I&D in ER -On doxycycline changed to p.o. complete total 7 days of treatment -S (5) CKD (chronic kidney disease), stage III: Resolved, creatinine improved to baseline Cr: 1.2. Baseline ~0.8-1.0 (6) HTN (hypertension): BP stable (7) TIA (transient ischemic attack): No focal neurological deficit, baseline advanced dementia (8) Dementia: -Monitor for delirium - DVT Prophylaxis -Order for subcu heparin DNR as per discussion with pt and pt's daughter and son Follows with Dr Nieves for routine care Disposition: She lives with daughter Ordered for PT OT evaluation, social service consult for discharge plan Patient is scheduled for video swallow study tomorrow, and possible adjustment of diet per speech pathology recommendation Plan to discharge home tomorrow Subjective Refused to take Remeron last night, says it is making her more nauseous, Was ordered for PRN trazodone, Nursing patient had few hours of sleep, more confused, anxious this morning No further episode of diarrhea, no cough, no evidence of aspiration on clear liquid diet, scheduled for video swallow study to Physical Exam Constitutional: + ill appearing (chronically ill), + thin and + cachectic; no acute distress Eyes: + anicteric sclerae ENMT: external ear and nose normal, oropharynx normal Mallampati Class: II Neck: normal visual inspection Respiratory: normal respiratory effort; no respiratory distress Auscultation: lungs clear to auscultation bilaterally Cardiovascular: Rate/Rhythm: regular rate and regular rhythm Gastrointestinal (Abdomen): normal bowel sounds, soft, nontender, no hepatosplenomegaly Musculoskeletal: Head/Neck/Chest: normocephalic and head atraumatic Skin: no rashes, warm and dry Neurologic: moves all extremities Psychiatric: Orientation: alert and oriented to person (Baseline dementia) Eye Contact: + fair eye contact Affect: + anxious affect Results & Data Vital Signs (Past 12 Hours) Vital Signs Temp Pulse Pulse Resp BP BP Pulse Ox 08/04/19 15:31 36.9 C 91 H 18 124/80 97 08/04/19 11:19 99 H 128/88 08/04/19 09:54 159/93 H 08/04/19 07:38 36.8 C 96 H 16 148/92 H 97 (1) Dysphagia Dysphagia type: unspecified Qualified Code(s): R13.10 - Dysphagia, unspecified
[2019-08-04] MEDS: ATORVASTATIN 10 MG TAB PO SCH (20:03)
[2019-08-04] MEDS: MIRTAZAPINE TAB 15 MG TAB PO SCH (20:03)
[2019-08-04] MEDS ORDERED: TRAZODONE HCL 50 MG TAB PO SCH (21:00)
--- NOTE | 2019-08-05 09:51 | Anesthesiology Progress Note ---
Date of Service August 05, 2019 Anesthesia Post Procedure Vital Signs Vital Signs: Temp Pulse Pulse Resp BP BP Pulse Ox 08/05/19 07:36 36.6 C 90 16 148/97 H 97 08/04/19 22:57 136/88 08/04/19 22:51 36.8 C 87 18 152/101 H 97 08/04/19 15:31 36.9 C 91 H 18 124/80 97 08/04/19 11:19 99 H 128/88 08/04/19 09:54 159/93 H Pain Intensity Right 2nd Digit Finger: Pain Intensity: 0 Notes Mental Status: alert / awake / arousable and participated in evaluation Nausea / Vomiting: adequately controlled Pain: adequately controlled Airway Patency, RR, SpO2: stable & adequate BP & HR: stable & adequate Hydration State: stable & adequate
--- NOTE | 2019-08-05 10:47 | Fluoroscopy Report ---
FL video swallow HISTORY: Aspiration assess for aspiration TECHNIQUE: Video fluoroscopic evaluation of swallowing was performed in the AP and lateral projection s by the speech pathology staff. The patient is fed nectar-thick and thin liquid barium, a barium coa saima wafer, and barium pudding. FLUOROSCOPY TIME: 1.5 minutes NUMBER OF FLUOROSCOPIC IMAGES: 162 COMPARISON STUDY: None. FINDINGS: There is normal hyoid excursion and epiglottic deflection. Trace aspiration with thin liqui ds IMPRESSION: 1. Trace aspiration with thin liquids 2. Please see the speech pathologist report for detailed findings and recommendations. The above report was generated using voice recognition software. It may contain grammatical, syntax or spelling errors. Electronically signed by: Chacho Chaudhari M.D. 08/05/2019 10:45 AM
[2019-08-05] MEDS: METOPROLOL SUCC 50MG EXT REL TAB PO SCH (10:50)
[2019-08-05] MEDS: DOXYCYCLINE HYCLATE 100 MG CAP PO SCH ×2 (10:50→19:59)
[2019-08-05] MEDS: AMLODIPINE BESYLATE 5 MG TAB PO SCH (10:50)
[2019-08-05] MEDS ORDERED: SODIUM CHLORIDE 0.9% 1000ML 1,000 ML IV SCH (11:30)
--- NOTE | 2019-08-05 11:52 | Hospitalist Progress Note ---
Date of Service August 05, 2019 Assessment & Plan (1) Dysphagia: Pt is 89 y/o F with PMH HTN, TIA, CKD III, dysphagia, dementia presented with c/o Dysphagia. Hx Schatzki's ring. EGD on 05/31/19: mild esophageal diverticulum, distal esophageal Schatzki's ring that was dilated, hiatal hernia with normal stomach and duodenum. Reported improved dysphagia for 1 month after EGD which has returned and progressed from solids to liquids and now with very poor oral intake Status post EGD by GI 08/02/2019 With dilatation of Schatzki's ring Speech pathology consulted, appreciate input Bedside evaluation: No overt aspiration noted, patient is apprehensive about eating anything solid Video swallow study on 08/05/2019 shows no significant oropharyngeal dysphagia(Incorporated very poorly during exam, very anxious about choking/food getting stuck) Diet resumed regular with bite size as per speech recommendation, aspiration precaution ordered Patient appetite remains extremely poor, Very fearful of drinking or eating, concerned about food getting stuck Anxious about every single thing Diarrhea/positive 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 difficile assay-negative for C. difficile toxin/C. difficile gene- likely a carrier No sign of C. difficile infection Does not need any treatment order to DC p.o. vancomycin Ordered for probiotics, patient refused (2) Dehydration: Resolved after IV fluid hydration Poor oral intake past couple of weeks secondary to dysphagia. BUN: 31, Cr: 1.2. BUN/Cr ratio: 25 Creatinine improved to 0.83/BUN 20 Patient started on a clear liquid diet, counseling and encouragement were provided for increased oral intake of fluids ACUTE RENAL FAILURE: CKD STAGE III Secondary to poor p.o. intake, dysphagia Presentation creatinine 1.23, improved to 0.83 with IV hydration Continue to encourage p.o. fluid intake Avoid NSAIDs, contrast studies SEVERE PROTEIN CALORIE MALNUTRITION BMI 21/very poor p.o. intake for chronic dysphagia Status post dilatation of Schatzki's ring, speech evaluation appreciated, patient may need adjustment of dietary consistency Nutrition consult requested (3) Diarrhea: Resolved, no further episode of loose stool C. difficile PCR/DNA positive, toxin negativelikely a carrier state Evidence of infection does not require any treatment Does not require contact isolation (4) Paronychia: Right index finger pain and edema x 6 days. Reported initial cut to area thought to be secondary to dental floss? Seen by PCP on 07/31/19 and had area I&D and was started on clindamycin. Preliminary wound culture with no growth. Took one clindamycin Afebrile. No leukocytosis. Xray finger +soft tissue swelling, no fracture -Had I&D in ER -On doxycycline changed to p.o. complete total 7 days of treatment (5) CKD (chronic kidney disease), stage III: Resolved, creatinine improved to baseline Cr: 1.2. Baseline ~0.8-1.0 (6) HTN (hypertension): BP stable (7) TIA (transient ischemic attack): No focal neurological deficit, baseline advanced dementia (8) Dementia: -Monitor for delirium - DVT Prophylaxis -Order for subcu heparin DNR as per discussion with pt and pt's daughter and son Follows with Dr Nieves for routine care Disposition: She lives with daughter Ordered for PT OT evaluation, social service consult for discharge plan Subjective Patient was found to be more confused, anxious this morning Mumbling words, unable to complete sentence Family members, daughters present at bedside, worried about possible stroke causing patient's worsening of confusion, Patient does not demonstrate any focal neurological deficit, Moving all limbs, not cooperating in physical exam secondary to severe anxiety Order for CT chest noncontrast, result shows no acute change, chronic cerebral atrophy, small vessel disease unchanged compared to prior CT head on 07/03/2019 Dear swallow done this morning showed no overt evidence of aspiration, appreciate speech evaluation, recommends resume regular diet with aspiration precaution Family was worried about patient being very dehydrated, refused to eat or drink anything Patient refused to drink water or juice, very anxious thinking food will get stuck-even after reassurance provided multiple times by myself and speech therapy Patient ordered IV fluids Recheck done later afternoon, Patient appears to be much more cooperative, able to get up bed to chair, Speech is fluent, Still getting anxiety /panic attack intermittently Physical Exam Constitutional: + ill appearing (chronically ill), + thin and + cachectic; no acute distress Eyes: + anicteric sclerae ENMT: external ear and nose normal, oropharynx normal Mallampati Class: II Neck: normal visual inspection Respiratory: normal respiratory effort; no respiratory distress Auscultation: lungs clear to auscultation bilaterally Cardiovascular: Rate/Rhythm: regular rate and regular rhythm Gastrointestinal (Abdomen): normal bowel sounds, soft, nontender, no hepatosplenomegaly Musculoskeletal: Head/Neck/Chest: normocephalic and head atraumatic Skin: no rashes, warm and dry Neurologic: moves all extremities Psychiatric: Orientation: alert and oriented to person (Baseline dementia) Eye Contact: + poor eye contact Affect: + anxious affect Results & Data Vital Signs (Past 12 Hours) Vital Signs Temp Pulse Resp BP BP Pulse Ox 08/05/19 10:47 89 116/75 08/05/19 07:36 36.6 C 90 16 148/97 H 97 (1) Dysphagia Dysphagia type: unspecified Qualified Code(s): R13.10 - Dysphagia, unspecified
--- NOTE | 2019-08-05 12:16 | CT Scan Report ---
CT head/brain wo con CT DOSE: 537.48 mGy.cm HISTORY: Mental status change confusion TECHNIQUE: Multiaxial CT images of the head were performed without the use of intravenous contrast. A dose lowering technique was utilized adhering to the principles of ALARA. Comparison: 07/10/2019 Findings: The paranasal sinuses and mastoid air cells are clear. The calvarium and skull base are int act. The ventricles and sulci are within normal limits. There is no mass, hematoma, midline shift, or acute infarct. 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 Findings of mild age-related atrop hy as well as moderate chronic small vessel change. These findings are stable compared to the prior s tudy. Impression: 1. No acute intracranial abnormality. 2. Age-related atrophy and chronic small vessel change. 3. 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 The above report was generated using voice recognition software. It may contain grammatical, syntax or spelling errors. Electronically signed by: Chacho Chaudhari M.D. 08/05/2019 12:15 PM
[2019-08-05 12:30] LABS: BUN Creatinine Ratio 15.7 (10-20); Calcium 9.4 mg/dl (8.5-10.1); Creatinine Clr Calc Pharmacy 26.9 ml/min; Est GFR (African American) 52.5; Est GFR (Non-African American) 45.3; Potassium 3.2 mmol/L (3.5-5.1)
[2019-08-05] MEDS ORDERED: ALUMINUM/MAGNESIUM/SIMETH (MAALOX MAX) 30 ML UDC PO PRN (14:00)
[2019-08-05] MEDS ORDERED: NSS + 20MEQ KCL 20 MEQ/1,000 ML BAG IV SCH (14:30)
[2019-08-05] MEDS: ATORVASTATIN 10 MG TAB PO SCH (19:59)
[2019-08-05] MEDS: MIRTAZAPINE TAB 15 MG TAB PO SCH (19:59)
--- NOTE | 2019-08-06 09:45 | Palliative Care Consultation ---
Date of Consultation August 06, 2019 Assessment & Plan (1) Goals of care, counseling/discussion: -89 year old female patient with PMH dementia, Schatski's ring s/p dilatation most recently on 08/02/19, CKD, CVA, HLD, and others, presented to the hospital with c/o dysphagia. She had previously had EGD in May 2019 with severe stricture. Upon presentation, patient had slightly elevated BUN and creatinine due to poor PO intake and dehydration which has since resolved. Patient underwent the EGD on 08/02 and had esophageal dilatation which has helped her tremendously. Patient had VFSS yesterday 08/05 which showed no aspiration, but patient slow to swallow. Case management is consulted for discharge planning-- patient lives with her daughter Angelina. Apparently patient's care is becoming somewhat burdensome to patient's daughter. Patient previously undergoing outpatient PT. Daughter is interested in discussing goals of care in the setting of advancing dementia in this elderly patient. Palliative care consulted. -Met with patient in room 376-1. She just got done working with PT and did well. Sitting up in chair eating without difficulty. Patient oriented to person, place and time, but definitely has some forgetfulness and is slow to answer questions at times. Patient seems slightly paranoid when I was asking her orientation questions. Stated, "Boy, you're really checking things out here, aren't you?" patient could offer very little in the way of discussing goals of care. She is pleased that her swallowing has improved. -Called patient's daughter Angelina-- she will be to hospital soon and I will meet with her to discuss GOC. -Update: spoke at length with patient's daughter Angelina Moreau. We had a very helpful conversation about dementia and the progression of the disease. We looked over a FAST scale, patient is currently a 6c due to needing help with ADLs, bathing and toileting. Patient lives with Angelina, so she helps with these things. Angelina states that she has noticed a recent decline and knows patient does not want aggressive measures. She has a living will and would never want a feeding tube if it came to not being able to safely eat. Patient has never been admitted to [facility] as she just moved in with Angelina in May. We talked about the appropriate time to initiate hospice care. Also discussed the typical complications of dementia: decreased PO intake, UTIs, pneumonia, aspiration, etc. Angelina was appreciative of the information. Plan is for patient to go back home, likely with home health. Case management following for discharge planning, and I updated CM. (2) Dysphagia: Dysphagia type: unspecified Qualified Code(s): R13.10 - Dysphagia, unspecified (3) Dehydration: (4) Dementia: History of Present Illness Attending Physician: Jennifer Salcedo MD History of Present Illness This 89 year old female patient with PMH dementia, Schatski's ring s/p dilatation most recently on 08/02/19, CKD, CVA, HLD, and others, presented to the hospital with c/o dysphagia. She had previously had EGD in May 2019 with severe stricture. Upon presentation, patient had slightly elevated BUN and creatinine due to poor PO intake and dehydration which has since resolved. Patient underwent the EGD on 08/02 and had esophageal dilatation which has helped her tremendously. Patient had VFSS yesterday 08/05 which showed no aspiration, but patient slow to swallow. Case management is consulted for discharge planning-- patient lives with her daughter Angelina. Apparently patient's care is becoming somewhat burdensome to patient's daughter. Patient previously undergoing outpatient PT. Daughter is interested in discussing goals of care in the setting of advancing dementia in this elderly patient. Palliative care consulted. Thank you kindly for this consult. Palliative care team will follow as needed. Allergies Allergy/AdvReac Type Severity Reaction Status Date / Time erythromycin base Allergy Unknown Unknown Unverified 08/01/19 14:57 Penicillins Allergy Unknown Unknown Unverified 08/01/19 14:57 ciprofloxacin [From Cipro] Allergy Hallucinati Unverified 08/01/19 14:57 ng topiramate [From Topamax] Allergy Hallucinati Unverified 08/01/19 14:57 ng Home Medications Home Medications Medication Instructions Recorded Confirmed Type amlodipine 10 mg PO QDL 05/31/19 08/01/19 History atorvastatin 10 mg PO QDL 05/31/19 08/01/19 History metoprolol succinate 50 mg PO QDL 05/31/19 08/01/19 History mirtazapine 30 mg PO HS 08/01/19 08/01/19 History Patient History Medical History CKD (chronic kidney disease), stage III (Chronic) Anemia (Resolved) GI bleed (Resolved) Melena (Resolved) Osteoporosis (Chronic) Mitral regurgitation (Chronic) Hyperparathyroidism (Chronic) Hiatal hernia (Chronic) Aortic valve sclerosis (Chronic) Esophageal stricture (Chronic) TIA (transient ischemic attack) (Chronic) CVA (cerebral vascular accident) (Chronic) HLD (hyperlipidemia) (Chronic) Anxiety (Chronic) Diverticulosis (Chronic) IBS (irritable bowel syndrome) (Chronic) GERD (gastroesophageal reflux disease) (Chronic) HTN (hypertension) (Chronic) Surgical History Hx of tonsillectomy (Chronic) History of cataract surgery (Chronic) History of cholecystectomy (Chronic) Family History Mother Heart disease Social History Preferred Language: Romansh Communication Ability: Effective Lead Man Over All Dies In [employer] Required: No Beliefs That Will Affect Care: None Current Living Situation: Family Feels Safe at Home: Yes Smoking Status: Former smoker Do You Dip or Chew Tobacco: No ; Second Hand Exposure: No ; Tobacco Cessation Education Requested by Patient: No Hx Alcohol Use: No Hx Substance Use: No Review of Systems Review of Systems: Const: No weakness ENMT: No dysphagia, but states she is "slow to swallow" Resp: No SOB, no cough Cardio: No chest pain, no edema GI: No abdominal pain, no N/V MS: No musculoskeletal pain Neuro: No confusion Psych: No anxiety, no depression Physical Exam Constitutional: well developed and well nourished; no acute distress ENMT: external ear and nose normal, oropharynx normal Neck: normal visual inspection Respiratory: normal respiratory effort, lungs clear to auscultation Cardiovascular: RRR, no murmur, no edema Gastrointestinal (Abdomen): Inspection/Auscultation: normal bowel sounds Percussion/Palpation: abdomen soft; abdomen nontender Neurologic: moves all extremities and awake Psychiatric: Orientation: alert, oriented to person, oriented to place and oriented to time Insight: + poor insight Results & Data Vital Signs (Past 12 Hours) Vital Signs Temp Pulse Resp BP BP Pulse Ox 08/06/19 07:40 37.0 C 110 H 16 153/94 H 96 08/06/19 03:31 37.2 C 83 20 134/84 94 08/05/19 23:50 37.1 C 82 22 145/86 H 95 Time Spent Midlevel 70 minutes with >50% of the time spent at bedside with patient and family discussing condition and GOC.
[2019-08-06] MEDS: DOXYCYCLINE HYCLATE 100 MG CAP PO SCH ×2 (10:20→20:09)
[2019-08-06] MEDS: AMLODIPINE BESYLATE 5 MG TAB PO SCH (10:22)
[2019-08-06] MEDS: METOPROLOL SUCC 50MG EXT REL TAB PO SCH (10:23)
[2019-08-06] MEDS: MIRTAZAPINE TAB 15 MG TAB PO SCH (20:09)
[2019-08-06] MEDS: ATORVASTATIN 10 MG TAB PO SCH (20:09)
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
[2019-08-07 06:45] LABS: BUN Creatinine Ratio 31.3 (10-20); Calcium 9.3 mg/dl (8.5-10.1); Creatinine Clr Calc Pharmacy 34.5 ml/min; Est GFR (African American) 70.9; Est GFR (Non-African American) 61.2; Potassium 3.4 mmol/L (3.5-5.1)
[2019-08-07] MEDS: DOXYCYCLINE HYCLATE 100 MG CAP PO SCH (10:48)
[2019-08-07] MEDS: AMLODIPINE BESYLATE 5 MG TAB PO SCH (10:48)
[2019-08-07] MEDS: METOPROLOL SUCC 50MG EXT REL TAB PO SCH (10:48)
[2019-08-07] MEDS ORDERED: AZTREONAM CONSULT ACTIVE PRN (12:14)
[2019-08-07] MEDS: SODIUM CHLORIDE 0.9% 1000ML 1,000 ML IV SCH (13:44)
[2019-08-07] MEDS: AZTREONAM 1,000 MG in DEXTROSE 5% 100 ML IV SCH ×2 (13:45→19:56)
--- NOTE | 2019-08-07 14:33 | Infectious Disease Consult ---
Date of Consultation August 07, 2019 Assessment & Plan (1) Cellulitis of finger of right hand: Patient with right second finger infection with cultures so far growing coagulase-negative staph. Given lack of response to oral antibiotic, will start patient on IV daptomycin for now pending final culture results and sensitivities. Length of IV antibiotics will be determined by clinical response. Will follow. History of Present Illness Reason for Consultation: Persistent right finger cellulitis/abscess Attending Physician: Vladimir Gutierres MD History of Present Illness History obtained from family, medical records, and medical staff as patient unable to provide adequate history. 89-year-old female with dementia, stage III chronic kidney disease, hypertension, prior TIA, hyperparathyroidism who was admitted to the hospital on August 01 with dysphasia, poor oral intake, and dehydration. She underwent en doscopy with dilatation of a Schatzki's ring. She was noted last week to have an apparent right second finger infection at the tip, possibly due to trauma from dental floss. She was initially given oral clindamycin after attempts at incision and drainage, but developed diarrhea and this was discontinued. Reportedly cultures were negative. She was changed to doxycycline, but has had persistence of redness, pain, and swelling. Currently being treated with doxycycline and aztreonam. She has not had any significant fever or leukocytosis. Complaining of severe pain.Cultures thus far growing coagulase- negative staph, x-ray shows soft tissue swelling without evidence of bone involvement. Allergies Allergy/AdvReac Type Severity Reaction Status Date / Time erythromycin base Allergy Unknown Unknown Unverified 08/01/19 14:57 Penicillins Allergy Unknown Unknown Unverified 08/01/19 14:57 ciprofloxacin [From Cipro] Allergy Hallucinati Unverified 08/01/19 14:57 ng topiramate [From Topamax] Allergy Hallucinati Unverified 08/01/19 14:57 ng Home Medications Home Medications Medication Instructions Recorded Confirmed Type amlodipine 10 mg PO QDL 05/31/19 08/01/19 History atorvastatin 10 mg PO QDL 05/31/19 08/01/19 History metoprolol succinate 50 mg PO QDL 05/31/19 08/01/19 History mirtazapine 30 mg PO HS 08/01/19 08/01/19 History Patient History Medical History CKD (chronic kidney disease), stage III (Chronic) Anemia (Resolved) GI bleed (Resolved) Melena (Resolved) Osteoporosis (Chronic) Mitral regurgitation (Chronic) Hyperparathyroidism (Chronic) Hiatal hernia (Chronic) Aortic valve sclerosis (Chronic) Esophageal stricture (Chronic) TIA (transient ischemic attack) (Chronic) CVA (cerebral vascular accident) (Chronic) HLD (hyperlipidemia) (Chronic) Anxiety (Chronic) Diverticulosis (Chronic) IBS (irritable bowel syndrome) (Chronic) GERD (gastroesophageal reflux disease) (Chronic) HTN (hypertension) (Chronic) Surgical History Hx of tonsillectomy (Chronic) History of cataract surgery (Chronic) History of cholecystectomy (Chronic) Family History Mother Heart disease Social History Preferred Language: Yi Communication Ability: Effective Offensive Coordinator Required: No Beliefs That Will Affect Care: None Current Living Situation: Family Feels Safe at Home: Yes Smoking Status: Former smoker Do You Dip or Chew Tobacco: No ; Second Hand Exposure: No ; Tobacco Cessation Education Requested by Patient: No Hx Alcohol Use: No Hx Substance Use: No Review of Systems Review of Systems: Unobtainable due to cognitive status Physical Exam Constitutional: + ill appearing, + cachectic and comfortable; no acute distress Eyes: PERRL, conjunctivae normal, anicteric sclerae ENMT: external ear and nose normal, oropharynx normal Neck: trachea midline, no thyromegaly neck nontender Respiratory: normal respiratory effort, lungs clear to auscultation normal percussion; does not use accessory muscles Cardiovascular: Rate/Rhythm: regular rate and regular rhythm Heart Sounds: normal S1 and normal S2; no gallop, no murmur and no cardiac rub Vessels: normal peripheral pulses; no JVD Gastrointestinal (Abdomen): normal bowel sounds, soft, nontender, no hepatosplenomegaly Musculoskeletal: no cyanosis or clubbing, extremities motor strength 5/5 Spine: thoracic spine normal to inspection and lumbar spine normal to inspection; no cervical spinal tenderness Skin: no rashes, warm and dry normal turgor and + erythema (Erythematous and indurated right second finger with small eschar, slight pu) Neurologic: patellar DTR's 2+ bilat, sensation intact no focal motor deficits Psychiatric: A+Ox3, euthymic affect Orientation: cooperative Lymphatic: no cervical or axillary lymphadenopathy no inguinal lymphaden opathy Results & Data Vital Signs (Past 12 Hours) Vital Signs Temp Pulse Pulse Resp BP BP Pulse Ox 08/07/19 10:45 82 100/71 08/07/19 08:47 36.5 C 74 16 134/85 97 Laboratory Results BMP 08/07/19 05:51 Sodium 141 Potassium 3.4 L Chloride 110 H Carbon Dioxide 24 BUN 27 H D Creatinine 0.85 Glucose 94 Calcium 9.3 Diagnostic Findings Microbiology 08/06/19 19:30 Finger,Right Index Gram Stain - Final 08/06/19 19:30 Finger,Right Index Wound Culture - Preliminary Coag negative Staphylococcus 08/01/19 15:37 Blood Aerobic Blood Culture - Final No growth in Aerobic bottle after 5 days. 08/01/19 15:37 Blood Anaerobic Blood Culture - Final No growth in Anaerobic bottle after 5 days. 08/01/19 15:07 Blood Aerobic Blood Culture - Final No growth in Aerobic bottle after 5 days. 08/01/19 15:07 Blood Anaerobic Blood Culture - Final No growth in Anaerobic bottle after 5 days. XR finger RT min 2V CLINICAL HISTORY: index eval for bony involvment pain COMPARISON: None. DISCUSSION: Severe degenerative change distal interphalangeal joint. Mild degenerative change proximal interphalangeal joint. Generalized soft tissue edematous change of the mid and distal aspect of the finger. 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 Soft tissue edema. No acute fracture or dislocation. The above report was generated using voice recognition software. It may contain grammatical, syntax or spelling errors. PG Care Time/CCT Total # of Minutes Spent Total Time Spent with Patient: Total time spent is greater than 50% in coordination of care (as documented) at patient's floor/unit and/or counseling patient:
[2019-08-07] MEDS ORDERED: DAPTOmycin 500 MG VIAL IV SCH (15:00)
[2019-08-07] MEDS: DAPTOmycin 200 MG in SYRINGE 0 ML IV SCH (16:21)
--- NOTE | 2019-08-07 16:24 | Orthopedic Consultation ---
Date of Consultation August 07, 2019 Assessment & Plan (1) Paronychia of right index finger: She had an infected paronychia of her right index finger. It appears that this has been adequately treated with an incision and drainage. She is currently getting antibiotics. She does not appear to have any further entrapped abscess in the fingertip. No indication for surgical intervention at this time. It looks like the fingertip is already healing, and should continue to heal well with local wound care. I would recommend adding twice daily soap soaks and dressing changes to her regimen. Follow-up with me within 1 week of discharge. History of Present Illness Reason for Consultation: Right index finger infection Attending Physician: Vladimir Gutierres MD History of Present Illness Ms. Ureña is an 89-year-old female with dementia who developed an infection at the tip of right index finger. History was obtained from the daughter due to the patient's dementia. She states that about 1.5 weeks ago, they noticed what appeared to be a blood blister on the radial side of the index fingertip next to the fingernail. The daughter is fairly certain that this comes from the patient using dental floss. She reports that when she uses dental floss, she wraps it so tightly around her finger that her fingertip turns purple. They initially went to their primary care physician for this. It sounds like she had a superficial incision and drainage in the office. She was also placed on antibiotics, but this gave her diarrhea, and she got severely dehydrated. She was admitted to the hospital mainly for dehydration from the diarrhea, as well as difficulty swallowing. Her treatment was largely focused on this, and she did not have any dressing changes on her finger for several days. Wound care was just started on the finger tip, and orthopedics was consulted for additional management. Allergies Allergy/AdvReac Type Severity Reaction Status Date / Time erythromycin base Allergy Unknown Unknown Unverified 08/01/19 14:57 Penicillins Allergy Unknown Unknown Unverified 08/01/19 14:57 ciprofloxacin [From Cipro] Allergy Hallucinati Unverified 08/01/19 14:57 ng topiramate [From Topamax] Allergy Hallucinati Unverified 08/01/19 14:57 ng Home Medications Home Medications Medication Instructions Recorded Confirmed Type amlodipine 10 mg PO QDL 05/31/19 08/01/19 History atorvastatin 10 mg PO QDL 05/31/19 08/01/19 History metoprolol succinate 50 mg PO QDL 05/31/19 08/01/19 History mirtazapine 30 mg PO HS 08/01/19 08/01/19 History Patient History Medical History CKD (chronic kidney disease), stage III (Chronic) Anemia (Resolved) GI bleed (Resolved) Melena (Resolved) Osteoporosis (Chronic) Mitral regurgitation (Chronic) Hyperparathyroidism (Chronic) Hiatal hernia (Chronic) Aortic valve sclerosis (Chronic) Esophageal stricture (Chronic) TIA (transient ischemic attack) (Chronic) CVA (cerebral vascular accident) (Chronic) HLD (hyperlipidemia) (Chronic) Anxiety (Chronic) Diverticulosis (Chronic) IBS (irritable bowel syndrome) (Chronic) GERD (gastroesophageal reflux disease) (Chronic) HTN (hypertension) (Chronic) Surgical History Hx of tonsillectomy (Chronic) History of cataract surgery (Chronic) History of cholecystectomy (Chronic) Family History Mother Heart disease Social History Preferred Language: Egyptian Communication Ability: Effective Mock Up Maker Required: No Beliefs That Will Affect Care: None Current Living Situation: Family Feels Safe at Home: Yes Smoking Status: Former smoker Do You Dip or Chew Tobacco: No ; Second Hand Exposure: No ; Tobacco Cessation Education Requested by Patient: No Hx Alcohol Use: No Hx Substance Use: No Physical Exam Physical Exam: Patient was extremely reluctant to allow me to examine his finger, but with the assistance of the daughter, we are able to remove the previous dressing. Examination of the right index fingertip revealed an area of sloughed skin off of the radial aspect of the eponychial fold. She appears to have good granulation tissue in the base of the wound. No significant erythema, swelling, or induration. No active or expressible drainage. No drainage on her dressings that were placed this morning. No significant tenderness to palpation. Patient will not follow commands, but it does appear that she has DIP joint motion without too much discomfort. Fingertip is warm well perfused. Results & Data Vital Signs (Past 12 Hours) Vital Signs Temp Pulse Pulse Resp BP BP Pulse Ox 08/07/19 15:07 36.7 C 88 17 89/69 L 98 08/07/19 10:45 82 100/71 08/07/19 08:47 36.5 C 74 16 134/85 97 Diagnostic Findings Right index finger x-rays were reviewed. They show significant arthritic degeneration at the DIP joint. No obvious osseous erosions or periosteal reaction to indicate osteomyelitis.
--- NOTE | 2019-08-07 18:10 | Psychiatric Consultation ---
Date of Consultation August 07, 2019 Impression / Recommendations Impression 89-year-old female admitted medically on 08/01/19 after being brought to the ED with reported dysphagia, admitted for treatment dehydration and dysphagia. Psychiatric consultation is requested to evaluate patient for "anxiety." Pt has been started on mirtazapine 30mg about 2 weeks prior to this admission to target anxiety and difficulty sleeping. Patient's daughter suggests that patient's anxiety is largely related to taking medications and eating food - things that will likely become more comfortable now that patient has received esophageal dilatation on 08/02/19. It is certainly possible that this is contributing to, but also not helped by her current anxiety level. Daughter also admits to some paranoia when the patient is home, stating the patient questions at times if her son-in-law is poisoning her. Given the recent start of mirtazapine, it seems appropriate to continue the medication in hopes of improved benefit for anxiety as patient continues to take it. It is possible patient would benefit from trial of an SSRI, if mirtazapine is found to be ineffective. Centrally acting agents are not ideal, but may be beneficial if necessary for acute management of anxiety. It is possible a low-dose of hydroxyzine 10mg could be utilized for acute anxiety, or low-dose quetiapine 12.5mg as needed for anxiety. Ideally, patient's symptoms of anxiety and depressed mood would respond to current use of mirtazapine or to trial of an SSRI - would reserve PRN agents unless other means are ineffective. Centrally acting agents may contribute to worsening confusion or sedation, which may further increase patient's discomfort with swallowing/eating, or put her at risk of possible aspiration. Recommend beginning the referral process for patient to be seen by an outpatient psychiatrist - given progressing dementia contributing to increased anxiety, and reported depressive symptoms. We will work with the patient and her family to make these referrals if desired. Will also follow-up with the patient over the course of her stay to make recommendations regarding medications. Given only short trial of mirtazapine 30mg, it seems appropriate to continue this medication at this time. Please reach out to our service with any questions or updates. Appreciate the opportunity to participate in the care of this patient. Dr. Darline Nicholas was directly involved in review and discussion of the patient's case and participated in medical decision making regarding treatment recommendations. Psych History Identifying Data 89-year-old female admitted medically on 08/01/19 after presenting to the ED with complaints of dysphagia. Pt was admitted for dysphagia and dehydration. Psychiatric consultation is requested to evaluate patient for "anxiety." Information is gathered from hospital documentation and the patient's family, whom she gives permission for this provider to speak with. Information gathered from the patient alone is not considered reliable. Chief Complaint "See, all the questions. I'm tired of people talking around me." History of Present Illness Vaughn Ureña is an 89-year-old female admitted medically on 08/01/19 due to complaints of dysphagia and dehydration. Pt has a PMH of HTN, CKD stage III, TIA, dysphagia, diverticulitis, and vascular dementia. Pt did have an EGD done on 08/02/19 which was significant for a non-obstructing Schatzki ring, an esophageal dilatation was completed during procedure. Psychiatric consultation was requested to evaluate patient for "anxiety disorder." Pt is currently prescribed mirtazapine 30mg qHS by her PCP. Patient's case was reviewed and discussed with psychiatrist and psychiatric nurse liaison. Upon examination, patient is found to be sitting on a bedside chair in her room - receiving a visit from family (daughter and 3 adult grandchildren). Pt and her daughter, Angelina CHRISTENSEN, give permission for this provider to engage in conversation. Pt states that she is "not good" and states she has not been able to eat. When asked what she had for lunch, the patient responds by saying "the national debt." Pt does become overstimulated by conversation, stating there are too many questions and that she is not sure of the answers. At one point patient states, "I'm tired of people talking around me, talk to me." Pt is not able to verbalize particular situations or stressors that are leading to anxiety at this time. She does not answer most questions with an appropriate response, but rather looks at her grandchildren with a frustrated face or intently looks out the window. While patient is in the restroom, daughter requests to speak with this PA to provide additional information. Daughter states the patient has been demonstrating increased anxiety recently, particularly surrounding taking medications and eating food. She states that the patient has also been somewhat "paranoid", reporting that the patient believes that the duaghter's is poisoning her food. She has also been more suspicious about conversations going on in her room between her family and providers. Grandchildren state that the patient has admitted that she "can't feel love" and "can't feel happy." They believe she has been struggling with depression as well. Pt was reportedly started on mirtazapine only 2 weeks ago, and perceived benefit remains unknown at this time. They deny significant safety concerns at this time. Past Psychiatric History Previous Psych History: Patient is unable to provider reliable information on the above topic Current Psychiatric Diagnosis: Unknown, had been prescribed antidepressant medications Outpatient Services: PCP prescribing mirtazapine presently. Previous Psych Admissions: Unknown Past Medication Trials: Prozac Mirtazapine Hydroxyzine - sedation at 25mg dose Allergies Allergy/AdvReac Type Severity Reaction Status Date / Time erythromycin base Allergy Unknown Unknown Unverified 08/01/19 14:57 Penicillins Allergy Unknown Unknown Unverified 08/01/19 14:57 ciprofloxacin [From Cipro] Allergy Hallucinati Unverified 08/01/19 14:57 ng topiramate [From Topamax] Allergy Hallucinati Unverified 08/01/19 14:57 ng Home Medications Home Medications Medication Instructions Recorded Confirmed Type amlodipine 10 mg PO QDL 05/31/19 08/01/19 History atorvastatin 10 mg PO QDL 05/31/19 08/01/19 History metoprolol succinate 50 mg PO QDL 05/31/19 08/01/19 History mirtazapine 30 mg PO HS 08/01/19 08/01/19 History Substance Abuse History Patient is unable to provider reliable information on the above topic Personal History Living Arrangements: Home (with daughter, who is full-time caregiver) Childhood: Patient is unable to provider reliable information on the above topic Employment Status: Retired Patient History Medical History CKD (chronic kidney disease), stage III (Chronic) Anemia (Resolved) GI bleed (Resolved) Melena (Resolved) Osteoporosis (Chronic) Mitral regurgitation (Chronic) Hyperparathyroidism (Chronic) Hiatal hernia (Chronic) Aortic valve sclerosis (Chronic) Esophageal stricture (Chronic) TIA (transient ischemic attack) (Chronic) CVA (cerebral vascular accident) (Chronic) HLD (hyperlipidemia) (Chronic) Anxiety (Chronic) Diverticulosis (Chronic) IBS (irritable bowel syndrome) (Chronic) GERD (gastroesophageal reflux disease) (Chronic) HTN (hypertension) (Chronic) Surgical History Hx of tonsillectomy (Chronic) History of cataract surgery (Chronic) History of cholecystectomy (Chronic) Family History Mother Heart disease Social History Preferred Language: Mohawk Communication Ability: Effective Manager Product Management Required: No Beliefs That Will Affect Care: None Current Living Situation: Family Feels Safe at Home: Yes Smoking Status: Former smoker Do You Dip or Chew Tobacco: No ; Second Hand Exposure: No ; Tobacco Cessation Education Requested by Patient: No Hx Alcohol Use: No Hx Substance Use: No Physical Exam Psychiatric: Orientation: alert and oriented to person Pt is confused at baseline due to vascular dementia Apperance: appropriately dressed (wearing matching pajama top and bottoms), appropriately groomed (short robbins hair, appearing clean and well-groomed) and appeared stated age Eye Contact: good eye contact Motor Behavior: no abnormal motor movements (observed while sitting upright in bedside chair) Speech: normal rate/rhythm/volume of speech (soft tone, whispering at time due to throat discomfort) Affect: + irritable affect (inquiring about the conversations being had, frustrated with questions) Thought Process: + thought process not linear or logical and + thought process not clear or coherent Cognition: language grossly intact; + recent memory not intact, + remote memory not intact and + attention not intact Insight: + impaired insight Judgement: + impaired judgement Vital Signs (Past 24 Hours): Last Vital Signs Temp 36.5 C 08/07/19 08:47 Pulse 82 08/07/19 10:45 Resp 16 08/07/19 08:47 BP 100/71 08/07/19 10:45 Pulse Ox 97 08/07/19 08:47 Review of Systems Constitutional: reports fatigue, difficulty sleeping Cardiovascular: denied Respiratory: denied Gastrointestinal: reports difficulty swallowing Neurological: denied Psychiatric: denies symptoms other than stated above Total of at least 10 systems reviewed, pertinent positives as above and in HPI. Results & Data Medications Administered Amlodipine Besylate (Norvasc) 10 mg PO QAM JOSEFINA Stop: 09/02/19 12:29 Last Admin: 08/07/19 10:48 Dose: 10 mg Documented by: [id number] Admin: 08/06/19 10:22 Dose: 10 mg Documented by: [id number] Admin: 08/05/19 10:50 Dose: 10 mg Documented by: [id number] Admin: 08/04/19 09:55 Dose: 10 mg Documented by: [id number] Admin: 08/03/19 14:24 Dose: 10 mg Documented by: [id number] Atorvastatin Calcium (Lipitor) 10 mg PO PM JOSEFINA Stop: 09/02/19 20:59 Last Admin: 08/06/19 20:09 Dose: 10 mg Documented by: [id number] Admin: 08/05/19 19:59 Dose: 10 mg Documented by: [id number] Admin: 08/04/19 20:03 Dose: 10 mg Documented by: [id number] Admin: 08/03/19 20:28 Dose: 10 mg Documented by: [id number] Doxycycline Hyclate (Vibramycin) 100 mg PO BID JOSEFINA Stop: 08/11/19 20:59 Last Admin: 08/07/19 10:48 Dose: 100 mg Documented by: [id number] Admin: 08/06/19 20:09 Dose: 100 mg Documented by: [id number] Admin: 08/06/19 10:20 Dose: 100 mg Documented by: [id number] Admin: 08/05/19 19:59 Dose: 100 mg Documented by: [id number] Admin: 08/05/19 10:50 Dose: 100 mg Documented by: [id number] Admin: 08/04/19 20:04 Dose: 100 mg Documented by: [id number] Admin: 08/04/19 09:55 Dose: 100 mg Documented by: [id number] Admin: 08/03/19 20:29 Dose: 100 mg Documented by: [id number] Metoprolol Succinate (Toprol Xl) 50 mg PO QDL JOSEFINA Stop: 08/31/19 19:24 Last Admin: 08/07/19 10:48 Dose: Not Given Documented by: [id number] Admin: 08/06/19 10:23 Dose: 50 mg Documented by: [id number] Admin: 08/05/19 10:50 Dose: 50 mg Documented by: [id number] Admin: 08/04/19 11:30 Dose: 50 mg Documented by: [id number] Admin: 08/03/19 12:30 Dose: 50 mg Documented by: [id number] Admin: 08/02/19 11:13 Dose: 50 mg Documented by: [id number] Cosigned by: [id number] Admin: 08/01/19 21:04 Dose: 50 mg Documented by: [id number] Mirtazapine (Remeron) 30 mg PO HS JOSEFINA Stop: 09/02/19 20:59 Last Admin: 08/06/19 20:09 Dose: 30 mg Documented by: [id number] Admin: 08/05/19 19:59 Dose: 30 mg Documented by: [id number] Admin: 08/04/19 20:03 Dose: 30 mg Documented by: [id number] Admin: 08/03/19 20:25 Dose: Not Given Documented by: [id number] Coding Level of Care Code 34004 U Intl Hosp Care Lvl 3
--- NOTE | 2019-08-07 19:03 | Hospitalist Progress Note ---
Date of Service August 07, 2019 Assessment & Plan (1) Paronychia: per Dr. Salcedo notes: Right Finger Cellulitis, Paronychia Right index finger pain and edema x 6 days. Reported initial cut to area thought to be secondary to dental floss? Seen by PCP on 07/31/19 and had area I&D and was started on clindamycin. Preliminary wound culture with no growth. pt developed sever diarrhea after after one dose of clindamycin Xray finger +soft tissue swelling, no fracture -- not much improved, already on Doxy PO Ortho consulted ID consulted Wound care consulted (2) Dysphagia: per Dr. Salcedo notes: Pt is 89 y/o F with PMH HTN, TIA, CKD III, dysphagia, dementia presented with c/o Dysphagia. Hx Schatzki's ring. EGD on 05/31/19: mild esophageal diverticulum, distal esophageal Schatzki's ring that was dilated, hiatal hernia with normal stomach and duodenum. Reported improved dysphagia for 1 month after EGD which has returned and progressed from solids to liquids and now with very poor oral intake Status post EGD by GI 08/02/2019 With dilatation of Schatzki's ring Speech pathology consulted, appreciate input Bedside evaluation: No overt aspiration noted, patient is apprehensive about eating anything solid Video swallow study on 08/05/2019 shows no significant oropharyngeal dysphagia(Incorporated very poorly during exam, very anxious about choking/food getting stuck) Diet resumed regular with bite size as per speech recommendation, aspiration precaution ordered --PO intake improving slowly monitor Diarrhea/positive 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 difficile assay-negative for C. difficile toxin/C. difficile gene- likely a carrier No sign of C. difficile infection Does not need any treatment order to DC p.o. vancomycin Ordered for probiotics, patient refused (3) Dehydration: continue IV fluids ACUTE RENAL FAILURE: CKD STAGE III per Dr. Salcedo notes Secondary to poor p.o. intake, dysphagia Presentation creatinine 1.23, improved to 0.83 with IV hydration Continue to encourage p.o. fluid intake Avoid NSAIDs, contrast studies SEVERE PROTEIN CALORIE MALNUTRITION per Dr. Salcedo notes BMI 21/very poor p.o. intake for chronic dysphagia Status post dilatation of Schatzki's ring, speech evaluation appreciated, patient may need adjustment of dietary consistency Nutrition consult requested (4) CKD (chronic kidney disease), stage III: Resolved, creatinine improved to baseline Cr: 1.2. Baseline ~0.8-1.0 (5) HTN (hypertension): BP stable (6) TIA (transient ischemic attack): No focal neurological deficit, baseline advanced dementia (7) Dementia: -Monitor for delirium - DVT Prophylaxis subcu heparin Disposition: She lives with her daughter Subjective ff up for dysphagia, right finger cellulitis seen resting in bed, daughter at bedside assisting with H&P patient is confused, not answering questions appropriately appears guarded, anxious no problems with swallowing today was very anxious, uncomfortable when right finger dressing was being removed no other signs/symptoms noted Review of Systems Review of Systems: All systems reviewed & are unremarkable except as noted in HPI & below Physical Exam Physical Exam: General- oriented x 1- person, not in distress, speaks in sentences with no effort or accessory muscle use Head- atraumatic Eyes- PERRL, EOMI, anicteric ENT- oropharynx clear Neck- supple, no JVD, no adenopathy, no thyromegaly; carotids +2/2, no bruits appreciated Lungs- clear to auscultation bilaterally, no rales/wheezes Heart- normal rate, regular rhythm; no murmur, no gallop, no rub appreciated Abdomen- normal bowel sounds, nondistended, soft, nontender, no masses or hepatosplenomegaly Extremities- no pretibial edema, no calf tenderness; peripheral pulses intact right finger- very mild swelling of the right distal aspect, no active drainage, small petechiae at the tip very tender to touch Neuro- alert, oriented x 1; CN 2-12 grossly intact; motor 5/5 bilaterally;sensation 100% on all extremities; no other gross focal neurologic deficits Skin- warm & dry Results & Data Vital Signs (Past 12 Hours) Vital Signs Temp Pulse Pulse Resp BP BP Pulse Ox 08/07/19 15:07 36.7 C 88 17 89/69 L 98 08/07/19 10:45 82 100/71 08/07/19 08:47 36.5 C 74 16 134/85 97 Laboratory Results Laboratory Results - last 24 hr 08/07/19 05:51 Sodium 141 Potassium 3.4 L Chloride 110 H Carbon Dioxide 24 Anion Gap 7.0 BUN 27 H D Creatinine 0.85 Est Cr Clr Drug Dosing 34.5 Est GFR ( Amer) 70.9 Est GFR (Non-Af Amer) 61.2 BUN/Creatinine Ratio 31.3 H Glucose 94 Calcium 9.3 (1) Dysphagia Dysphagia type: unspecified Qualified Code(s): R13.10 - Dysphagia, unspecified
[2019-08-07] MEDS: MIRTAZAPINE TAB 15 MG TAB PO SCH (19:56)
[2019-08-08] MEDS: SODIUM CHLORIDE 0.9% 1000ML 1,000 ML IV SCH ×2 (02:05→14:27)
[2019-08-08] MEDS: AZTREONAM 1,000 MG in DEXTROSE 5% 100 ML IV SCH ×2 (10:09→19:37)
[2019-08-08] MEDS: METOPROLOL SUCC 50MG EXT REL TAB PO SCH (11:00)
--- NOTE | 2019-08-08 11:12 | Infectious Disease Progress Nt ---
Date of Service August 08, 2019 Assessment & Plan (1) Cellulitis of finger of right hand: Patient with infection of right second finger, appears to have slightly improved with daptomycin. Would continue IV antibiotics for now, as oral options are somewhat limited. Will follow. Subjective Patient seen in follow-up for right finger infection. States the pain in her finger is slightly better today. Remains afebrile, offers no other new specific complaints. Tolerated first dose of daptomycin without apparent difficulty. Wound culture growing only coagulase-negative staph so far. Review of Systems Review of Systems: All systems reviewed & are unremarkable except as noted in HPI & below Physical Exam Constitutional: WD/WN, vitals as above comfortable; no acute distress Eyes: PERRL, conjunctivae normal, anicteric sclerae ENMT: external ear and nose normal, oropharynx normal Neck: trachea midline, no thyromegaly neck nontender Respiratory: normal respiratory effort, lungs clear to auscultation normal percussion; does not use accessory muscles Cardiovascular: Rate/Rhythm: regular rate and regular rhythm Heart Sounds: normal S1 and normal S2; no gallop, no murmur and no cardiac rub Vessels: normal peripheral pulses; no JVD Gastrointestinal (Abdomen): normal bowel sounds, soft, nontender, no hepatosplenomegaly Musculoskeletal: no cyanosis or clubbing, extremities motor strength 5/5 Spine: thoracic spine normal to inspection and lumbar spine normal to inspection; no cervical spinal tenderness Skin: no rashes, warm and dry normal turgor and + wound (Right second finger slightly less erythematous, still very tender) Neurologic: moves all extremities and awake; no focal motor deficits Psychiatric: A+Ox3, euthymic affect Orientation: cooperative Lymphatic: no cervical or axillary lymphadenopathy no inguinal lymphadenopathy Results & Data Vital Signs (Past 12 Hours) Vital Signs Temp Pulse Resp BP Pulse Ox 08/08/19 10:56 132 H 140/84 08/08/19 07:46 36.7 C 120 H 16 154/98 H 96 08/08/19 00:16 36.5 C 83 18 109/73 94 Laboratory Results Laboratory Results - last 48 hr 08/07/19 05:51 Sodium 141 Potassium 3.4 L Chloride 110 H Carbon Dioxide 24 Anion Gap 7.0 BUN 27 H D Creatinine 0.85 Est Cr Clr Drug Dosing 34.5 Est GFR ( Amer) 70.9 Est GFR (Non-Af Amer) 61.2 BUN/Creatinine Ratio 31.3 H Glucose 94 Calcium 9.3 Diagnostic Findings Microbiology 08/06/19 19:30 Finger,Right Index Gram Stain - Final 08/06/19 19:30 Finger,Right Index Wound Culture - Final Coag negative Staphylococcus 08/01/19 15:37 Blood Aerobic Blood Culture - Final No growth in Aerobic bottle after 5 days. 08/01/19 15:37 Blood Anaerobic Blood Culture - Final No growth in Anaerobic bottle after 5 days. 08/01/19 15:07 Blood Aerobic Blood Culture - Final No growth in Aerobic bottle after 5 days. 08/01/19 15:07 Blood Anaerobic Blood Culture - Final No growth in Anaerobic bottle after 5 days. PG Care Time/CCT Total # of Minutes Spent Total Time Spent with Patient: Total time spent is greater than 50% in coordination of care (as documented) at patient's floor/unit and/or counseling patient:
[2019-08-08 11:47] LABS: Basophils # (auto) 0.02 K/uL (0-0.2); Basophils % (auto) 0.2 %; Eosinophils # (auto) 0.01 K/uL (0-0.5); Eosinophils % (auto) 0.1 %; Hematocrit (blood only) 40.3 % (37-47); Hemoglobin 14.1 g/dL (12.0-16.0); Immature Granulocytes # (auto) 0.03 K/uL (0.00-0.02); Immature Granulocytes % (auto) 0.3 %; Lymphocytes # (auto) 1.66 K/uL (1.2-3.4); Lymphocytes % (auto) 16.8 %; Mean Corpuscular Hemoglobin 31.3 pg (25-34); Mean Corpuscular Volume 89.4 fL (80-100); Mean Platelet Volume 9.5 fL (7.4-10.4); Monocytes # (auto) 0.96 K/uL (0.11-0.59); Monocytes % (auto) 9.7 %; Neutrophils # (auto) 7.22 K/uL (1.4-6.5); Neutrophils % (auto) 72.9 %; Platelet Count 203 K/uL (130-400); RDW Coefficient of Variation 13.7 % (11.5-14.5); Red Blood Count 4.51 M/uL (4.2-5.4)
[2019-08-08] MEDS: AMLODIPINE BESYLATE 5 MG TAB PO SCH (11:47)
[2019-08-08 12:03] LABS: BUN Creatinine Ratio 23.2 (10-20); Calcium 9.4 mg/dl (8.5-10.1); Creatinine Clr Calc Pharmacy 34.9 ml/min; Est GFR (African American) 71.9; Est GFR (Non-African American) 62.1; Potassium 3.2 mmol/L (3.5-5.1)
[2019-08-08] MEDS: DAPTOmycin 200 MG in SYRINGE 0 ML IV SCH (14:28)
[2019-08-08] MEDS: MIRTAZAPINE TAB 15 MG TAB PO SCH (19:38)
--- NOTE | 2019-08-08 21:14 | Hospitalist Progress Note ---
Date of Service August 08, 2019 Assessment & Plan (1) Paronychia: per Dr. Salcedo notes: Right Finger Cellulitis, Paronychia Right index finger pain and edema x 6 days. Reported initial cut to area thought to be secondary to dental floss? Seen by PCP on 07/31/19 and had area I&D and was started on clindamycin. Preliminary wound culture with no growth. pt developed sever diarrhea after after one dose of clindamycin Xray finger +soft tissue swelling, no fracture -- not much improved, already on Doxy PO Ortho consulted: no procedures recommended ID consulted: IV Dapto started Wound care consulted -- wound cx: coag neg staph -- continue IV Dapto Day # 2 per ID (2) Dysphagia: per Dr. Salcedo notes: Pt is 89 y/o F with PMH HTN, TIA, CKD III, dysphagia, dementia presented with c/o Dysphagia. Hx Schatzki's ring. EGD on 05/31/19: mild esophageal diverticulum, distal esophageal Schatzki's ring that was dilated, hiatal hernia with normal stomach and duodenum. Reported improved dysphagia for 1 month after EGD which has returned and progressed from solids to liquids and now with very poor oral intake Status post EGD by GI 08/02/2019 With dilatation of Schatzki's ring Speech pathology consulted, appreciate input Bedside evaluation: No overt aspiration noted, patient is apprehensive about eating anything solid Video swallow study on 08/05/2019 shows MILD oropharyngeal dysphagia(Incorporated very poorly during exam, very anxious about choking/food getting stuck) Diet resumed regular with bite size as per speech recommendation, aspiration precaution ordered --PO intake improving slowly monitor Diarrhea/positive 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 difficile assay-negative for C. difficile toxin/C. difficile gene- likely a carrier No sign of C. difficile infection Does not need any treatment order to DC p.o. vancomycin Ordered for probiotics, patient refused (3) Dehydration: continue IV fluids ACUTE RENAL FAILURE: CKD STAGE III per Dr. Salcedo notes Secondary to poor p.o. intake, dysphagia Presentation creatinine 1.23, improved to 0.83 with IV hydration Continue to encourage p.o. fluid intake Avoid NSAIDs, contrast studies SEVERE PROTEIN CALORIE MALNUTRITION per Dr. Salcedo notes BMI 21/very poor p.o. intake for chronic dysphagia Status post dilatation of Schatzki's ring, speech evaluation appreciated, patient may need adjustment of dietary consistency Nutrition consult requested (4) CKD (chronic kidney disease), stage III: Resolved, creatinine improved to baseline Cr: 1.2. Baseline ~0.8-1.0 (5) HTN (hypertension): BP stable (6) TIA (transient ischemic attack): No focal neurological deficit, baseline advanced dementia (7) Dementia: -Monitor for delirium - DVT Prophylaxis subcu heparin Disposition: She lives with her daughter Subjective ff up for right finger cellulitis seen with daughter at bedside, reassuring patient, assisting as patient has severe anxiety alert, not oriented, appears guarded, anxious denies chest pain, dyspnea did not eat much for breakfast ROS limited due to mental status but no other signs/symptoms per daughter Review of Systems Review of Systems: All systems reviewed & are unremarkable except as noted in HPI & below Physical Exam Physical Exam: General- oriented x 1, not in distress, speaks in sentences with no effort or accessory muscle use Eyes- anicteric Neck- no JVD Lungs- clear breath sounds bilaterally, no rales/wheezes Heart- mild tachycardic rate, regular rhythm; no murmurs Abdomen- normal bowel sounds, nondistended, soft, nontender Extremities- no pretibial edema, no calf tenderness right index finger- less edema, less discoloration Neuro- alert, oriented x 1; no gross focal neurologic deficits Skin- warm & dry Results & Data Vital Signs (Past 12 Hours) Vital Signs Temp Pulse Resp BP BP Pulse Ox 08/08/19 15:11 36.6 C 97 H 16 134/86 97 08/08/19 10:56 132 H 140/84 Laboratory Results Laboratory Results - last 24 hr 08/08/19 08/08/19 11:30 11:30 WBC 9.90 RBC 4.51 Hgb 14.1 Hct 40.3 MCV 89.4 MCH 31.3 MCHC 35.0 RDW Std Deviation 45.0 RDW Coeff of Allison 13.7 Plt Count 203 MPV 9.5 Immature Gran % (Auto) 0.3 Neut % (Auto) 72.9 Lymph % (Auto) 16.8 [place] % (Auto) 9.7 Eos % (Auto) 0.1 Baso % (Auto) 0.2 Immature Gran # (Auto) 0.03 H Neut # (Auto) 7.22 H Lymph # (Auto) 1.66 [place] # (Auto) 0.96 H Eos # (Auto) 0.01 Baso # (Auto) 0.02 Sodium 141 Potassium 3.2 L Chloride 111 H Carbon Dioxide 21 Anion Gap 9.0 BUN 19 H Creatinine 0.84 Est Cr Clr Drug Dosing 34.9 Est GFR ( Amer) 71.9 Est GFR (Non-Af Amer) 62.1 BUN/Creatinine Ratio 23.2 H Glucose 131 H Calcium 9.4 (1) Dysphagia Dysphagia type: unspecified Qualified Code(s): R13.10 - Dysphagia, unspecifie d
[2019-08-08] MEDS ORDERED: POTASSIUM CHLORIDE 10 MEQ TABCR PO STA (21:15)
[2019-08-08] MEDS: POTASSIUM CHLORIDE / WTR 10 MEQ/100 ML PLCT IV SCH ×2 (22:11→23:54)
[2019-08-09] MEDS: POTASSIUM CHLORIDE / WTR 10 MEQ/100 ML PLCT IV SCH (00:51)
[2019-08-09] MEDS: SODIUM CHLORIDE 0.9% 1000ML 1,000 ML IV SCH (04:52)
[2019-08-09 06:18] VITALS: TEMP 98.6; O2SAT 98
[2019-08-09] MEDS: AMLODIPINE BESYLATE 5 MG TAB PO SCH (11:33)
[2019-08-09] MEDS: METOPROLOL SUCC 50MG EXT REL TAB PO SCH ×2 (11:33→12:50)
[2019-08-09 11:34] VITALS: BP 124/79; PULSE 109
[2019-08-09 11:50] LABS: BUN Creatinine Ratio 21.6 (10-20); Calcium 9.4 mg/dl (8.5-10.1); Creatinine Clr Calc Pharmacy 41.9 ml/min; Est GFR (African American) 89.7; Est GFR (Non-African American) 77.4; Magnesium 1.5 mg/dl (1.8-2.4); Potassium 3.3 mmol/L (3.5-5.1)
[2019-08-09] MEDS: DAPTOmycin 200 MG in SYRINGE 0 ML IV SCH (14:19)
--- NOTE | 2019-08-09 14:33 | Infectious Disease Progress Nt ---
Date of Service August 09, 2019 Assessment & Plan (1) Cellulitis of finger of right hand: Patient with infection of right second finger, appears to have slightly improved with daptomycin. Would continue IV antibiotics for now,Likely will need in the range of 7 to 10 days of therapy depending on clinical response. Discussed with hospitalist. Will follow. Subjective Patient seen in follow-up for right finger infection. States the pain in her finger is slightly better today. Remains afebrile, offers no other new specific complaints. Continues to tolerate daptomycin without apparent difficulty. Physical Exam Constitutional: WD/WN, vitals as above + ill appearing, + cachectic and comfortable; no acute distress Eyes: PERRL, conjunctivae normal, anicteric sclerae ENMT: external ear and nose normal, oropharynx normal Neck: trachea midline, no thyromegaly neck nontender Respiratory: normal respiratory effort, lungs clear to auscultation normal percussion; does not use accessory muscles Cardiovascular: Rate/Rhythm: regular rate and regular rhythm Heart Sounds: normal S1 and normal S2; no gallop, no murmur and no cardiac rub Vessels: normal peripheral pulses; no JVD Gastrointestinal (Abdomen): normal bowel sounds, soft, nontender, no hepatosplenomegaly Musculoskeletal: no cyanosis or clubbing, extremities motor strength 5/5 Spine: thoracic spine normal to inspection and lumbar spine normal to inspection; no cervical spinal tenderness Skin: no rashes, warm and dry normal turgor, + wound (Right second finger slightly less erythematous, still very tender) and + erythema (Erythematous and indurated right second finger with small eschar, slight pu) Neurologic: patellar DTR's 2+ bilat, sensation intact moves all extremities and awake; no focal motor deficits Psychiatric: A+Ox3, euthymic affect Orientation: cooperative Lymphatic: no cervical or axillary lymphadenopathy no inguinal lymphadenopathy Results & Data Vital Signs (Past 12 Hours) Vital Signs Temp Pulse Pulse Resp BP Pulse Ox 08/09/19 11:33 109 H 124/79 08/09/19 06:17 37.0 C 112 H 21 149/86 H 98 Laboratory Results [facility] 08/09/19 11:06 Sodium 140 Potassium 3.3 L Chloride 109 H Carbon Dioxide 24 BUN 15 Creatinine 0.70 Glucose 155 H Calcium 9.4 Diagnostic Findings Microbiology 08/06/19 19:30 Finger,Right Index Gram Stain - Final 08/06/19 19:30 Finger,Right Index Wound Culture - Final Coag negative Staphylococcus 08/01/19 15:37 Blood Aerobic Blood Culture - Final No growth in Aerobic bottle after 5 days. 08/01/19 15:37 Blood Anaerobic Blood Culture - Final No growth in Anaerobic bottle after 5 days. 08/01/19 15:07 Blood Aerobic Blood Culture - Final No growth in Aerobic bottle after 5 days. 08/01/19 15:07 Blood Anaerobic Blood Culture - Final No growth in Anaerobic bottle after 5 days. PG Care Time/CCT Total # of Minutes Spent Total Time Spent with Patient: Total time spent is greater than 50% in coordination of care (as documented) at patient's floor/unit and/or counseling patient:
--- NOTE | 2019-08-09 15:41 | Hospitalist Progress Note ---
Date of Service August 09, 2019 Assessment & Plan (1) Paronychia: per Dr. Salcedo notes: Right Finger Cellulitis, Paronychia Right index finger pain and edema x 6 days. Reported initial cut to area thought to be secondary to dental floss? Seen by PCP on 07/31/19 and had area I&D and was started on clindamycin. Preliminary wound culture with no growth. pt developed sever diarrhea after after one dose of clindamycin Admission xray finger +soft tissue swelling, no fracture -- not much improved, already on Doxy PO Ortho consulted: no procedures recommended ID, Dr. Gillespie, consulted: IV Dapto started Wound care consulted -- wound cx: coag neg staph --Received 3 days of IV daptomycin, Dr. Gillespie recommends at least 7 more days of IV daptomycin Please order probiotics daily Monitor wound closely, proper daily wound care, contact Dr. Gillespie for any questions Wound care instructions: Right second finger-clean with saline, covered with Xeroform, 2 x 2 and Kerlix, change every day and as needed (2) Dysphagia: per Dr. Salcedo notes: Pt is 89 y/o F with PMH HTN, TIA, CKD III, dysphagia, dementia presented with c/o Dysphagia. Hx Schatzki's ring. EGD on 05/31/19: mild esophageal diverticulum, distal esophageal Schatzki's ring that was dilated, hiatal hernia with normal stomach and duodenum. Reported improved dysphagia for 1 month after EGD which has returned and progressed from solids to liquids and now with very poor oral intake Status post EGD by GI 08/02/2019 With dilatation of Schatzki's ring Speech pathology consulted Video swallow study 08/05/2019 shows MILD oropharyngeal dysphagia Speech therapy recommendations: #1 regular diet as tolerated, slippery, avoid foods that are dry thick, pasty, and doughy. Add condiments to foods such as sauce or gravy to keep moist. Regular diet will allow for more options for the patient to eat what she feels comfortable eating as she can tolerate #2 aspiration reflux precautions as outlined #3 Safe swallow strategies: Will need encouragement to eat #4 would benefit from continued LIME SPREADER services upon discharge. Aspiration precautions Solids and liquids Fully alert and upright Single bites/small sips/slow rate Reflux precautions Alternate solids and liquids Head of the bed 30 degrees all the time Slippery diet -- patient tolerating diet well so far Diarrhea/positive 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 difficile assay-negative for C. difficile toxin/C. difficile gene- likely a carrier Diarrhea has resolved Does not need any treatment (3) Dehydration: Resolved, given IV fluids ACUTE RENAL FAILURE: CKD STAGE III per Dr. Salcedo notes Secondary to poor p.o. intake, dysphagia Presentation creatinine 1.23, improved to 0.83 with IV hydration Continue to encourage p.o. fluid intake Avoid NSAIDs, contrast studies SEVERE PROTEIN CALORIE MALNUTRITION per Dr. Salcedo notes BMI 21/very poor p.o. intake for chronic dysphagia Status post dilatation of Schatzki's ring, speech evaluation performed Bottle Blower consulted (4) CKD (chronic kidney disease), stage III: Resolved, creatinine improved to baseline Cr: 1.2. Baseline ~0.8-1.0 (5) HTN (hypertension): BP stable (6) TIA (transient ischemic attack): No focal neurological deficit, baseline advanced dementia (7) Dementia: at baseline -Monitor for delirium DVT Prophylaxis subcu heparin Disposition: Discharge to rehab, [facility] Follow-up with primary care physician at [facility] Follow-up with regular care physician 1 week after discharge from rehab Subjective ff up for right finger cellulitis, mild dysphagia Seen resting in bedside chair with her daughter at the bedside Patient is calmer today, more conversant, does not appear anxious in general Denies pain on her right finger, denies chest pain, shortness of breath, dizziness or any other symptoms Daughter reports that she seemed to have eaten more today No other signs or symptoms noted Review of Systems Review of Systems: All systems reviewed & are unremarkable except as noted in HPI & below Physical Exam Physical Exam: General- oriented x 1, not in distress, speaks in sentences with no effort or accessory muscle use Eyes- anicteric Neck- no JVD Lungs- clear breath sounds no crackles, no wheezing bilaterally Heart- normal rate, regular rhythm; no murmurs Abdomen- normal bowel sounds, nondistended, soft, nontender Extremities- no pretibial edema, no calf tenderness Right next finger-mild edema of the DIP, better range of motion, no tenderness, no warmth, no discharge noted Wound healing well Neuro- alert, oriented x 2; no new gross focal neurologic deficits Skin- warm & dry Results & Data Vital Signs (Past 12 Hours) Vital Signs Temp Pulse Pulse Resp BP Pulse Ox 08/09/19 11:33 109 H 124/79 08/09/19 06:17 37.0 C 112 H 21 149/86 H 98 Laboratory Results Laboratory Results - last 24 hr 08/09/19 11:06 Sodium 140 Potassium 3.3 L Chloride 109 H Carbon Dioxide 24 Anion Gap 7.0 BUN 15 Creatinine 0.70 Est Cr Clr Drug Dosing 41.9 Est GFR ( Amer) 89.7 Est GFR (Non-Af Amer) 77.4 BUN/Creatinine Ratio 21.6 H Glucose 155 H Calcium 9.4 Magnesium 1.5 L (1) Dysphagia Dysphagia type: unspecified Qualified Code(s): R13.10 - Dysphagia, unspecified
--- NOTE | 2019-08-09 16:04 | Discharge Summary ---
Date of Service August 09, 2019 Admission HPI Per Admitting Provider Vaughn Ureña is an 89-year-old female admitted medically on 08/01/19 due to complaints of dysphagia and dehydration. Pt has a PMH of HTN, CKD stage III, TIA, dysphagia, diverticulitis, and vascular dementia. Pt did have an EGD done on 08/02/19 which was significant for a non-obstructing Schatzki ring, an esophageal dilatation was completed during procedure. Psychiatric consultation was requested to evaluate patient for "anxiety disorder." Pt is currently prescribed mirtazapine 30mg qHS by her PCP. Patient's case was reviewed and discussed with psychiatrist and psychiatric nurse liaison. Upon examination, patient is found to be sitting on a bedside chair in her room - receiving a visit from family (daughter and 3 adult grandchildren). Pt and her daughter, Angelina CHRISTENSEN, give permission for this provider to engage in conversation. Pt states that she is "not good" and states she has not been able to eat. When asked what she had for lunch, the patient responds by saying "the national debt." Pt does become overstimulated by conversation, stating there are too many questions and that she is not sure of the answers. At one point patient states, "I'm tired of people talking around me, talk to me." Pt is not able to verbalize particular situations or stressors that are leading to anxiety at this time. She does not answer most questions with an appropriate response, but rather looks at her grandchildren with a frustrated face or intently looks out the window. While patient is in the restroom, daughter requests to speak with this PA to provide additional information. Daughter states the patient has been demonstrating increased anxiety recently, particularly surrounding taking medications and eating food. She states that the patient has also been somewhat "paranoid", reporting that the patient believes that the duaghter's is poisoning her food. She has also been more suspicious about conversations going on in her room between her family and providers. Grandchildren state that the patient has admitted that she "can't feel love" and "can't feel happy." They believe she has been struggling with depression as well. Pt was reportedly started on mirtazapine only 2 weeks ago, and perceived benefit remains unknown at this time. They deny significant safety concerns at this time. Admission Exam Per Admitting Provider General: no acute distress, WDWN Head: normocephalic, atraumatic Eyes: PERRL, EOM's intact, conjunctiva non-injected, anicteric ENT: normal inspection external ears, nose, mucous membranes dry Neck: supple, trachea midline Lungs: Pt will not allow auscultation CV: Pt will not allow auscultation, pulse 80-91 while in ER Abd: normal BS, soft, no apparent tenderness to palpation Ext: no cyanosis, no calf tenderness Neuro: Alert, oriented to person. Knows in hospital, unsure name or location. no focal deficits noted, pt irritable intermittently and most often can be r edirected Skin: R index finger: +incision site to radial dorsal aspect of finger with surrounding erythema, no current fluctuance or discharge, no red streaking, +tender to palpation. Able to flex and extend finger, brisk capillary refill. Remaining skin warm, dry Principal Diagnosis Mild oropharyngeal dysphagia, dehydration, right index finger michelle lulitis/paronychia Discharge Exam General- oriented x 1, not in distress, speaks in sentences with no effort or accessory muscle use Eyes- anicteric Neck- no JVD Lungs- clear breath sounds no crackles, no wheezing bilaterally Heart- normal rate, regular rhythm; no murmurs Abdomen- normal bowel sounds, nondistended, soft, nontender Extremities- no pretibial edema, no calf tenderness Right next finger-mild edema of the DIP, better range of motion, no tenderness, no warmth, no discharge noted Wound healing well Neuro- alert, oriented x 2; no new gross focal neurologic deficits Skin- warm & dry Discharge Data Allergies Allergy/AdvReac Type Severity Reaction Status Date / Time erythromycin base Allergy Unknown Unknown Unverified 08/01/19 14:57 Penicillins Allergy Unknown Unknown Unverified 08/01/19 14:57 ciprofloxacin [From Cipro] Allergy Hallucinati Unverified 08/01/19 14:57 ng topiramate [From Topamax] Allergy Hallucinati Unverified 08/01/19 14:57 ng Consultations 08/01/19 16:21 ED Decision to Admit Stat 08/01/19 19:10 Consult Case Management - Discharge Planning Routine Consult Gastroenterology Routine 08/05/19 17:16 Consult Palliative Care Routine 08/06/19 19:51 Consult Psychiatry Routine 08/07/19 11:36 Consult Infectious Diseases Routine Consult Orthopedic Surgery Routine Procedures Performed Operation Date: 08/02/19 08:30 Actual Procedures p EGD Dilatation - Cheyanne Marie M.D. Findings: The examined esophagus appeared normal. A non-obstructing Schatzki ring was found in the lower third of the esophagus. A TTS dilator was passed through the scope. Dilation with an 8-9-10 mm x 5.5 cm CRE balloon dilator was performed to 10 mm. Mild mucosal disruption was noted post dilation. The examined stomach appeared normal. The duodenal bulb and second portion of the duodenum were normal. Impression: - Normal esophagus. - Non-obstructing Schatzki ring. Dilated. - Normal stomach. - Normal duodenal bulb and second portion of the duodenum. - No specimens collected. Recommendation: - IV PPI. - Clear liquid diet. - Speech and swallow. - Return to floor when ready. Ordered Studies 08/05/19 10:00 FL video swallow Routine IMPRESSION: 1. Trace aspiration with thin liquids 2. Please see the speech pathologist report for detailed findings and recommendations. 08/05/19 11:21 CT head/brain wo con Stat Findings: The paranasal sinuses and mastoid air cells are clear. The calvarium and skull base are intact. The ventricles and sulci are within normal limits. There is no mass, hematoma, midline shift, or acute infarct. 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 Findings of mild age-related atrophy as well as moderate chronic small vessel change. These findings are stable compared to the prior study. Impression: 1. No acute intracranial abnormality. 2. Age-related atrophy and chronic small vessel change. 3. 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 Right finger x-ray DISCUSSION: Severe degenerative change distal interphalangeal joint. Mild degenerative change proximal interphalangeal joint. Generalized soft tissue edematous change of the mid and distal aspect of the finger. 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 Soft tissue edema. No acute fracture or dislocation. Hospital Course (1) Paronychia: per Dr. Salcedo notes: Right Finger Cellulitis, Paronychia Right index finger pain and edema x 6 days. Reported initial cut to area thought to be secondary to dental floss? Seen by PCP on 07/31/19 and had area I&D and was started on clindamycin. Preliminary wound culture with no growth. pt developed sever diarrhea after after one dose of clindamycin Admission xray finger +soft tissue swelling, no fracture -- not much improved, already on Doxy PO Ortho consulted: no procedures recommended ID, Dr. Gillespie, consulted: IV Dapto started Wound care consulted -- wound cx: coag neg staph --Received 3 days of IV daptomycin, Dr. Gillespie recommends at least 7 more days of IV daptomycin Please order probiotics daily Monitor wound closely, proper daily wound care, contact Dr. Gillespie for any questions care instructions: Right second finger-clean with saline, covered with Xeroform, 2 x 2 and Kerlix, change every day and as needed (2) Dysphagia: Mild to moderate oropharyngeal dysphagia: per Dr. Salcedo notes: Pt is 89 y/o F with PMH HTN, TIA, CKD III, dysphagia, dementia presented with c/o Dysphagia. Hx Schatzki's ring. EGD on 05/31/19: mild esophageal diverticulum, distal esophageal Schatzki's ring that was dilated, hiatal hernia with normal stomach and duodenum. Reported improved dysphagia for 1 month after EGD which has returned and progressed from solids to liquids and now with very poor oral intake Status post EGD by GI 08/02/2019 With dilatation of Schatzki's ring Speech pathology consulted Video swallow study 08/05/2019 shows MILD oropharyngeal dysphagia Speech therapy recommendations: #1 regular diet as tolerated, slippery, avoid foods that are dry thick, pasty, and doughy. Add condiments to foods such as sauce or gravy to keep moist. Regular diet will allow for more options for the patient to eat what she feels comfortable eating as she can tolerate #2 aspiration reflux precautions as outlined #3 Safe swallow strategies: Will need encouragement to eat #4 would benefit from continued PRODUCTION CONTROL SPECIALIST services upon discharge. Aspiration precautions Solids and liquids Fully alert and upright Single bites/small sips/slow rate Reflux precautions Alternate solids and liquids Head of the bed 30 degrees all the time Slippery diet -- patient tolerating diet well so far Diarrhea/positive 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 difficile assay-negative for C. difficile toxin/C. difficile gene- likely a carrier Diarrhea has resolved Does not need any treatment (3) Dehydration: Resolved, given IV fluids ACUTE RENAL FAILURE: CKD STAGE III per Dr. Salcedo notes Secondary to poor p.o. intake, dysphagia Presentation creatinine 1.23, improved to 0.83 with IV hydration Continue to encourage p.o. fluid intake Avoid NSAIDs, contrast studies SEVERE PROTEIN CALORIE MALNUTRITION per Dr. Salcedo notes BMI 21/very poor p.o. intake for chronic dysphagia Status post dilatation of Schatzki's ring, speech evaluation performed Director On Air consulted (4) CKD (chronic kidney disease), stage III: Resolved, creatinine improved to baseline Cr: 1.2. Baseline ~0.8-1.0 (5) HTN (hypertension): BP stable Continue amlodipine and metoprolol (6) TIA (transient ischemic attack): No focal neurological deficit, baseline advanced dementia (7) Dementia: at baseline -Monitor for delirium Disposition: Discharge to rehab, [facility] Follow-up with primary care physician at [facility] Follow-up with regular care physician 1 week after discharge from rehab Total Time Total Time Spent Total Time Spent (In Minutes): 60 minutes Discharge Plan Discharge Items Patient Disposition: Transfer Inpatient Rehab Fac Reason For Visit: DEHYDRATION Discharge Diagnosis: Dehydration, Mild oropharyngeal dysphagia, Right index finger cellulitis Activity: As commented below Activity Comment: Always with assistance, fall precautions, continue physical therapy and Occupational Therapy Non-emergency contact: Primary Care Provider Call non-emergency contact if: you have any medication questions, your symptoms worsen, your pain is not controlled, your pain is worsening, your pain is unusual for you, your pain is concerning for you, you have a fever, your wound has increased redness, your wound has increased drainage and your wound pain has increased Follow-up/Referrals: [facility], [Outside Practitioners] - 09/26/19 1:15 pm (follow up appt with psychiatric provider Dr.Sarah [facility] at [facility] on September 26, 2019 at 1:15) Diet: Heart Healthy Diet Comment: Slippery diet; continue speech therapy Addtl Attending Provider Instructions: Wound care instructions: Right second finger-clean with saline, covered with Xeroform, 2 x 2 and Kerlix, change every day and as needed Continue with twice daily soap soaks: Mix 3 pumps of antibiotic hand soap into small bowl of lukewarm water. Swish right index fingertip in soap solution for 5-10 minutes. Apply new clean, dry dressing after each soak. Please order probiotics daily. Speech therapy recommendations: #1 regular diet as tolerated, slippery, avoid foods that are dry thick, pasty, and doughy. Add condiments to foods such as sauce or gravy to keep moist. Regular diet will allow for more options for the patient to eat what she feels comfortable eating as she can tolerate #2 aspiration reflux precautions as outlined #3 Safe swallow strategies: Will need encouragement to eat #4 would benefit from continued PRODUCTION CONTROL SPECIALIST services upon discharge. Aspiration precautions Solids and liquids Fully alert and upright Single bites/small sips/slow rate Reflux precautions Alternate solids and liquids Head of the bed 30 degrees all the time Slippery diet Please refer to accompanying hospital discharge summary for full details. Pending Studies at Discharge: No Stand-Alone Forms: [facility] Skilled Items Patient informed of condition?: Yes DNR: Yes Discharge Level of Care: Acute rehab Communicable Disease: No Discharge Prognosis: Stable Lines: US Guided Peripheral IV Urinary Catheter: No Medications and DC Order Prescriptions: New daptomycin 350 mg recon soln 200 mg IV DAILY 7 Days Qty: 7 RF: 0 Continued metoprolol succinate 50 mg tablet extended release 24 hr 50 mg PO QDL RF: 0 amlodipine 10 mg tablet 10 mg PO QDL RF: 0 mirtazapine 30 mg Tablet 30 mg PO HS RF: 0 Discontinued atorvastatin 10 mg tablet 10 mg PO QDL RF: 0 Discharge Orders: Discharge Order (Routine); Ordered 08/09/19 Ordered By: Vladimir Gutierres Admission Data Admit Date/Time: 08/01/19 17:47 Attending Provider: Vladimir Gutierres Admit Provider: Sami Gee Primary Care Provider: Kemar Nieves Other Providers: Cheyanne Marie ; Sami Gee ; [facility] ; Darline Nicholas ; Jennifer Salcedo ; Maribeth Castro ; Mateo Cedeño ; [facility] Other Interventions: Discharge Summary Assessment (RN) Last Done: 08/09/19 16:05
== END 2019-08-09 17:55 | DRG 391 ==
LOC: ED 13:51 → SUATTDRO 17:47 → 3N 17:47